=== PATIENT | male | born 2000 | race Caucasian/White ===

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

== ENCOUNTER → 2018-01-03 10:09 | Outpatient (CLI) | payer OTHER, SELFPAY ==
[2018-01-03 10:50] LABS: Hemoglobin A1C 7.1 % (0.0-7.0)
[2018-01-03 10:57] LABS: Basophils # 0.1 K/mm3 (0-0.2); Basophils % 0.6 % (0.1-2.0); Eosinophils # 0.2 K/mm3 (0.0-0.4); Eosinophils % 1.9 % (0.1-12.0); Hematocrit 45.3 % (42.0-52.0); Hemoglobin 14.7 g/dL (14.1-18.0); Lymphocytes % 41.2 K/mm3 (10-50); Mean Corpuscular HGB Conc 32.5 g/dL (31.8-35.4); Mean Corpuscular Hemoglobin 26.8 pg (27.0-31.2); Mean Corpuscular Volume 82.4 fl (80-94); Mean Platelet Volume 6.8 fl (7.4-10.4); Monocytes # 0.5 K/mm3 (0.1-1.0); Monocytes % 5.2 % (1.7-9.3); Neutrophils # 4.9 K/mm3 (1.8-7.8); Neutrophils % 51.1 % (37.0-80.0); Platelet Count 290 K/mm3 (142-424); Red Cell Distribution Width 13.2 % (11.5-17.5); White Blood Count 9.6 K/mm3 (4.5-13.0)
[2018-01-03 12:07] LABS: Alanine Aminotransferase 32 U/L (12-78); Albumin Level 3.8 gm/dL (3.4-5.0); Alkaline Phosphatase 110 U/L (46-116); Anion Gap 13.7 mEq/L (5-15); Aspartate Amino Transferase 14 U/L (15-37); Bilirubin,Total 0.5 mg/dL (0.2-1.0); Blood Urea Nitrogen 16 mg/dL (7-18); Calcium 9.4 mg/dL (8.5-10.1); Carbon Dioxide 30 mmol/L (21.0-32.0); Chloride 102 mmol/L (98-107); Chol/HDL Ratio 4.3 (1-3.5); Cholesterol 173 mg/dL (140-200); Creatinine,Serum 0.86 mg/dL (0.70-1.30); Estimated Glomerular Filt Rate 115 ml/min (>60); GFR (African American) 139 ML/MIN (>60); Globulin 3.8 gm/dl (1.3-3.2); Glucose 133 mg/dL (74-106); HDL Cholesterol 40 mg/dL (27-67); LDL Cholesterol 101 mg/dL (0-130); Potassium 3.7 mmoL/L (3.5-5.1); Sodium 142 mmol/L (136-145); Thyroid Stimulating Hormone 2.32 uIU/ml (0.516-4.13); Total Protein,Serum 7.6 gm/dL (6.4-8.2); Triglycerides 160 mg/dL (30-200); VLDL Cholesterol 32 mg/dL (0-40)
== END ==
PROVIDERS: PCP Emergency Medicine; Visit Provider Psychiatry & Neurology Psychiatry
DX: F32.1 Major depressive disorder, single episode, moderate (principal)
CPT/HCPCS: 36415; 80053; 80061; 83036; 84443; 85025

== ENCOUNTER → 2018-03-18 11:03 | Outpatient (CLI) | payer OTHER, SELFPAY ==
[2018-03-18 12:22] LABS: Basophils # 0.1 K/mm3 (0-0.2); Basophils % 0.7 % (0.1-2.0); Eosinophils # 0.2 K/mm3 (0.0-0.4); Eosinophils % 2.4 % (0.1-12.0); Hematocrit 48.4 % (42.0-52.0); Hemoglobin 15.6 g/dL (14.1-18.0); Lymphocytes # 3.9 K/mm3 (0.7-4.5); Lymphocytes % 46.8 % (10-50); Mean Corpuscular HGB Conc 32.2 g/dL (31.8-35.4); Mean Corpuscular Volume 83.9 fl (80-94); Mean Platelet Volume 7.1 fl (7.4-10.4); Monocytes # 0.4 K/mm3 (0.1-1.0); Monocytes % 4.5 % (1.7-9.3); Neutrophils # 3.8 K/mm3 (1.8-7.8); Neutrophils % 45.6 % (37.0-80.0); Platelet Count 278 K/mm3 (142-424); Red Blood Count 5.78 M/mm3 (4.60-6.20); Red Cell Distribution Width 13.7 % (11.5-17.5); White Blood Count 8.4 K/mm3 (4.5-13.0)
[2018-03-18 15:01] LABS: Alanine Aminotransferase 36 U/L (12-78); Albumin Level 4.1 gm/dL (3.4-5.0); Albumin/Globulin Ratio 1.1 (1.1-1.8); Alkaline Phosphatase 119 U/L (46-116); Aspartate Amino Transferase 21 U/L (15-37); Bilirubin,Total 0.6 mg/dL (0.2-1.0); Blood Urea Nitrogen 13 mg/dL (7-18); Calcium 9.5 mg/dL (8.5-10.1); Carbon Dioxide 27 mmol/L (21.0-32.0); Chloride 101 mmol/L (98-107); Chol/HDL Ratio 4.1 (1-3.5); Cholesterol 173 mg/dL (140-200); Creatinine,Serum 0.81 mg/dL (0.70-1.30); Estimated Glomerular Filt Rate 123 ml/min (>60); GFR (African American) 149 ML/MIN (>60); Globulin 3.8 gm/dl (1.3-3.2); Glucose 115 mg/dL (74-106); HDL Cholesterol 42 mg/dL (27-67); LDL Cholesterol 101 mg/dL (0-130); Sodium 140 mmol/L (136-145); T4 (Thyroxine) 7.6 ug/dl (5.4-10.6); Thyroid Stimulating Hormone 1.76 uIU/ml (0.516-4.13); Total Protein,Serum 7.9 gm/dL (6.4-8.2); Triglycerides 152 mg/dL (30-200); VLDL Cholesterol 30 mg/dL (0-40)
[2018-03-19 12:16] LABS: Vitamin D 25 Hydroxy 28.6 ng/mL (30.0-100.0)
== END ==
PROVIDERS: Nurse Practitioner Family; PCP Emergency Medicine; Visit Provider Emergency Medicine
DX: E11.9 Type 2 diabetes mellitus without complications (principal); F41.9 Anxiety disorder, unspecified
CPT/HCPCS: 36415; 80053; 80061; 82652; 83036; 84436; 84443; 85025

== ENCOUNTER → 2018-05-31 06:57 | Outpatient (CLI) | payer OTHER, SELFPAY ==
--- NOTE | 2018-05-31 08:22 | CT_ITS ---
CT angio coronary artery INDICATION: Atypical chest pain, shortness of air, evaluate for anatomic abnormalities. ITS.REASON: ATYPICAL CP,SOA ORDERING PHYSICIAN: Varun Carey MD PATIENT AGE: 17 years COMPARISON: None TECHNIQUE: Pre angiocardiography artery calcium score was performed Bradycardia was obtained with 50 mg by mouth metoprolol. Patient's heart rate was very variable. Patient was fairly anxious. The heart rate was in the 60s when the exam was initiated. Gated images were obtained following the intravenous ministration of 70 mL of Isovue-370. The patient experienced quite a bit of anxiety with contrast injection and a heart rate elevated to the 90s. The patient was concerned about an additional injection but finally agreed to an additional run. Heart rate was in the lower 70s sound/upper 60s and better images were obtained with a second run. Study is somewhat limited technically due to the variable heart rate and patient motion. FINDINGS: Coronary artery calcium score is 0. The left main coronary artery arises from the posterior aspect of the ascending aorta more posterior than normal. The right coronary artery arises from the anterior aspect of the ascending aorta more medial than normal. The RCA however does NOT have an malignant course and is NOT situated between the ascending aorta and main pulmonary artery. There is no identifiable plaque. No myocardial bridging or coronary stenosis is evident. Small vessels are somewhat difficult to analyze due to the motion artifact. The right coronary artery gives rise to a prominent acute marginal branch. This acute marginal branch traverses along the lateral aspect of the right ventricle and along the base of the right ventricle giving rise to a small posterior descending artery. The RCA does not give rise to the PDA but gives rise to a posterior lateral branch to the left ventricle. IMPRESSION: 1. The origin of the left main coronary artery is somewhat more posterior and medial than usual and the origin of the right coronary artery is also somewhat more anterior and medial. These however do not represent malignant inter-arterial courses of the coronary arteries. 2. The PDA originates from the acute marginal branch of the right coronary artery.
== END ==
PROVIDERS: PCP Emergency Medicine; Visit Provider Internal Medicine
DX: R07.89 Other chest pain (principal); R06.02 Shortness of breath
CPT/HCPCS: 75574; Q9967

== ENCOUNTER → 2018-11-03 10:29 | Outpatient (CLI) | payer OTHER, SELFPAY ==
[2018-11-03 11:06] LABS: Basophils # 0.1 K/mm3 (0-0.2); Basophils % 0.8 % (0.1-2.0); Eosinophils # 0.3 K/mm3 (0.0-0.4); Eosinophils % 4.4 % (0.1-12.0); Hematocrit 45.5 % (42.0-52.0); Hemoglobin 14.2 g/dL (14.1-18.0); Lymphocytes # 2.9 K/mm3 (0.7-4.5); Lymphocytes % 43.9 % (10-50); Mean Corpuscular HGB Conc 31.1 g/dL (31.8-35.4); Mean Corpuscular Hemoglobin 27.5 pg (27.0-31.2); Mean Corpuscular Volume 88.6 fl (80-94); Mean Platelet Volume 7.2 fl (7.4-10.4); Monocytes # 0.3 K/mm3 (0.1-1.0); Monocytes % 3.8 % (1.7-9.3); Neutrophils # 3.1 K/mm3 (1.8-7.8); Neutrophils % 47.1 % (37.0-80.0); Platelet Count 266 K/mm3 (142-424); Red Blood Count 5.14 M/mm3 (4.60-6.20); Red Cell Distribution Width 13.7 % (11.5-17.5); White Blood Count 6.6 K/mm3 (4.5-13.0)
[2018-11-03 13:57] LABS: Alanine Aminotransferase 52 U/L (12-78); Albumin Level 3.6 gm/dL (3.4-5.0); Albumin/Globulin Ratio 1.1 (1.1-1.8); Alkaline Phosphatase 116 U/L (46-116); Anion Gap 15.1 mEq/L (5-15); Aspartate Amino Transferase 26 U/L (15-37); Bilirubin,Total 0.5 mg/dL (0.2-1.0); Blood Urea Nitrogen 15 mg/dL (7-18); Carbon Dioxide 29 mmol/L (21.0-32.0); Chloride 102 mmol/L (98-107); Chol/HDL Ratio 4.2 (1-3.5); Cholesterol 157 mg/dL (140-200); Creatinine,Serum 0.88 mg/dL (0.70-1.30); Estimated Glomerular Filt Rate 110 ml/min (>60); GFR (African American) 134 ML/MIN (>60); Globulin 3.2 gm/dl (1.3-3.2); Glucose 104 mg/dL (74-106); HDL Cholesterol 37 mg/dL (27-67); LDL Cholesterol 101 mg/dL (0-130); Potassium 4.1 mmoL/L (3.5-5.1); Sodium 142 mmol/L (136-145); Total Protein,Serum 6.8 gm/dL (6.4-8.2); Triglycerides 95 mg/dL (30-200); VLDL Cholesterol 19 mg/dL (0-40)
== END ==
PROVIDERS: Visit Provider Psychiatry & Neurology Psychiatry
DX: F31.4 Bipolar disorder, current episode depressed, severe, without psychotic features (principal)
CPT/HCPCS: 36415; 80053; 80061; 85025

== ENCOUNTER → 2018-12-28 18:23 | Outpatient (CLI) | payer OTHER, SELFPAY ==
[2018-12-30 09:27] LABS: Hep A Ab, IgM Negative (Negative); Hepatitis B Core Antibody IgM Negative (Negative); Hepatitis B Surface Antigen Negative (Negative)
[2018-12-30 09:47] LABS: HIV Screen 4th Generation wRfx Non Reactive (Non Reactive); Hepatitis C Antibody <0.1 s/co ratio (0.0-0.9); Rapid Plasma Reagin Ab Titer Non Reactive (NonRea<1:1)
[2019-01-02 15:27] LABS: Neisseria gonorrhoeae, NAA Negative (Negative)
== END ==
PROVIDERS: Emergency Medicine; Visit Provider Physician Assistant
DX: Z20.2 Contact with and (suspected) exposure to infections with a predominantly sexual mode of transmission (principal)
CPT/HCPCS: 80074; 86592; 86703; 87491; 87591; G0432

== ENCOUNTER → 2019-09-22 17:24 | Outpatient (CLI) | payer OTHER, SELFPAY ==
[2019-09-22 18:08] LABS: Basophils # 0.1 K/mm3 (0-0.2); Basophils % 0.7 % (0.1-2.0); Eosinophils # 0.4 K/mm3 (0.0-0.4); Hematocrit 44.8 % (42.0-52.0); Hemoglobin 14.8 g/dL (14.1-18.0); Lymphocytes # 4.5 K/mm3 (0.7-4.5); Lymphocytes % 48.7 % (10-50); Mean Corpuscular Hemoglobin 27.5 pg (27.0-31.2); Mean Corpuscular Volume 83.4 fl (80-94); Mean Platelet Volume 7.4 fl (7.4-10.4); Monocytes # 0.5 K/mm3 (0.1-1.0); Monocytes % 5.9 % (1.7-9.3); Neutrophils # 3.7 K/mm3 (1.8-7.8); Neutrophils % 40.8 % (37.0-80.0); Platelet Count 291 K/mm3 (142-424); Red Blood Count 5.38 M/mm3 (4.60-6.20); Red Cell Distribution Width 13.7 % (11.5-17.5); White Blood Count 9.1 K/mm3 (4.8-10.8)
[2019-09-22 18:45] LABS: Alanine Aminotransferase 31 U/L (12-78); Albumin Level 4.5 g/dl (3.5-5.0); Albumin/Globulin Ratio 1.5 (1.1-1.8); Alkaline Phosphatase 112 U/L (38-126); Aspartate Amino Transferase 30 U/L (17-59); Bilirubin,Total 0.4 mg/dl (0.2-1.3); Blood Urea Nitrogen 11 mg/dl (9-20); Calcium 9.5 mg/dl (8.4-10.2); Carbon Dioxide 27 mmol/L (22.0-30.0); Chloride 100 mmol/L (98-107); Chol/HDL Ratio 3.8 (1-3.5); Cholesterol 178 mg/dl (140-200); Estimated Glomerular Filt Rate 122 ml/min (>60); GFR (African American) 148 ML/MIN (>60); Globulin 3.1 g/dL (1.3-3.2); Glucose 140 mg/dl (74-100); HDL Cholesterol 47 mg/dl (40-60); Hemoglobin A1C 6.5 % (4.0-6.0); Sodium 138 mmol/L (136-145); Total Protein,Serum 7.6 g/dl (6.3-8.2); Triglycerides 326 mg/dl (30-150); VLDL Cholesterol 65 mg/dL (0-40)
[2019-09-22 18:56] LABS: Direct LDL Cholesterol 107.53 mg/dL (100-129)
[2019-09-22 19:02] LABS: T4 (Thyroxine) 7.1 ug/dl (5.53-11.0)
[2019-09-22 19:15] LABS: Thyroid Stimulating Hormone 3.09 uIU/mL (0.465-4.68)
[2019-09-24 09:57] LABS: Vitamin D 25 Hydroxy 18.6 ng/mL (30.0-100.0)
== END ==
PROVIDERS: Visit Provider Emergency Medicine
DX: E10.65 Type 1 diabetes mellitus with hyperglycemia (principal); E55.9 Vitamin D deficiency, unspecified
CPT/HCPCS: 80053; 80061; 82043; 82652; 83036; 84436; 84443; 85025

== ENCOUNTER → 2020-01-19 18:01 | Outpatient (CLI) | payer OTHER, SELFPAY ==
[2020-01-19 18:23] LABS: Basophils # 0.1 K/mm3 (0-0.2); Basophils % 0.6 % (0.1-2.0); Eosinophils # 0.4 K/mm3 (0.0-0.4); Eosinophils % 4.3 % (0.1-12.0); Hematocrit 44.5 % (42.0-52.0); Hemoglobin 15.2 g/dL (14.1-18.0); Lymphocytes # 3.5 K/mm3 (0.7-4.5); Lymphocytes % 40.7 % (10-50); Mean Corpuscular HGB Conc 34.1 g/dL (31.8-35.4); Mean Corpuscular Hemoglobin 28.5 pg (27.0-31.2); Mean Corpuscular Volume 83.4 fl (80-94); Monocytes # 0.5 K/mm3 (0.1-1.0); Monocytes % 5.2 % (1.7-9.3); Neutrophils # 4.2 K/mm3 (1.8-7.8); Neutrophils % 49.2 % (37.0-80.0); Platelet Count 285 K/mm3 (142-424); Red Blood Count 5.33 M/mm3 (4.60-6.20); Red Cell Distribution Width 13.3 % (11.5-17.5); White Blood Count 8.6 K/mm3 (4.8-10.8)
[2020-01-19 18:40] LABS: Hemoglobin A1C 6.9 % (4.0-6.0)
[2020-01-19 19:46] LABS: Alanine Aminotransferase 21 U/L (12-78); Albumin Level 4.3 g/dl (3.5-5.0); Albumin/Globulin Ratio 1.4 (1.1-1.8); Alkaline Phosphatase 123 U/L (38-126); Anion Gap 17.1 mEq/L (5-15); Aspartate Amino Transferase 28 U/L (17-59); Bilirubin,Total 0.7 mg/dl (0.2-1.3); Blood Urea Nitrogen 15 mg/dl (9-20); Calcium 9.7 mg/dl (8.4-10.2); Carbon Dioxide 28 mmol/L (22.0-30.0); Chloride 99 mmol/L (98-107); Chol/HDL Ratio 4.4 (1-3.5); Cholesterol 194 mg/dl (140-200); Estimated Glomerular Filt Rate 142 ml/min (>60); GFR (African American) 172 ML/MIN (>60); Globulin 3.1 g/dL (1.3-3.2); Glucose 123 mg/dl (74-100); HDL Cholesterol 44 mg/dl (40-60); Potassium 4.1 mmoL/L (3.5-5.1); Sodium 140 mmol/L (136-145); Total Protein,Serum 7.4 g/dl (6.3-8.2); Triglycerides 178 mg/dl (30-150); VLDL Cholesterol 36 mg/dL (0-40)
[2020-01-19 19:57] LABS: Direct LDL Cholesterol 113.89 mg/dL (100-129)
[2020-01-19 20:02] LABS: T4 (Thyroxine) 6.8 ug/dl (5.53-11.0)
[2020-01-19 20:04] LABS: 25-OH Vitamin D, Total 22.7 ng/mL (30-100)
[2020-01-19 20:16] LABS: Thyroid Stimulating Hormone 1.71 uIU/mL (0.465-4.68)
== END ==
PROVIDERS: Visit Provider Nurse Practitioner Family
DX: E11.9 Type 2 diabetes mellitus without complications (principal); R53.83 Other fatigue; E55.9 Vitamin D deficiency, unspecified
CPT/HCPCS: 80053; 80061; 82306; 83036; 84436; 84443; 85025

== ENCOUNTER 2020-01-28 14:30 | Emergency (ER) | payer OTHER, SELFPAY ==
[2020-01-28 14:42] VITALS: BP 138/82; PULSE 88; RESP 19; TEMP 37.1; O2SAT 98; BMI 39.6
--- NOTE | 2020-01-28 14:48 | HMH.EDUTC ---
[facility] [place] Disposition Clinical Impression: Acute maxillary sinusitis Qualifiers: Recurrence: non-recurrent Qualified Code(s): J01.00 - Acute maxillary sinusitis, unspecified Disposition: Home, Self-Care Condition on Discharge: Good Instructions: Sinusitis, DI for Sinusitis Additional Instructions: Start antibiotic patient to take as ordered for a full length of time even if you feel better. Sinus infections do not get better overnight. It may take 2-3 days to notice much improvement so be sure to use conservative measures as discussed for symptoms. Flonase 1 spray each nostril daily to help with nasal congestion, sinus and ear pressure/information Increase fluids Humidifier/vaporizer as needed Tylenol and ibuprofen as needed for fever or pain. If symptoms do not improve or get worse return or be seen in the ER Follow-up with primary care this week Prescriptions: Fluticasone Propionate [Flonase 50mcg nasal spray 16gm] 1 spr NS DAILY 7 Days #1 bottle Prescription Printed Azithromycin [Zithromax 250mg tab] 250 mg PO DIRECTED #6 tab Prescription Printed Referrals: Esteban Ya MD [Primary Care Provider] - Time of Disposition: 14:54 Medical Decision Making - Haroon Inquiry Pt receiving controlled substance: No Vital Signs: 01/28/20 14:42 Temperature 98.7 F Temperature Source Oral Pulse Rate [Radial] 88 Respiratory Rate 19 Blood Pressure [Right Arm] 138/82 Blood Pressure Mean [Right Arm] 100 Blood Pressure Source [Right Arm] Automatic Cuff Blood Pressure Position [Right Arm] Sitting 02 Sat by Pulse Oximetry 98 Oxygen Delivery Method Room Air [facility] [place] HPI - General Chief complaint: Urgent Treatment Center Stated complaint: runny nose, cough, trouble breathing at night Time Seen by Provider: 01/28/20 14:48 Mode of Arrival: Ambulatory Source of Information: Patient Limitations: No Limitations Description of Symptoms (Recalled from Triage Doc. by RN): runny nose, coughing up dark mucous, sinus drainage since Wednesday HEENT Symptoms (Recalled from RN notes): Yes Resp Symptoms (Recalled from RN notes): No Skin Symptoms (Recalled from RN notes): No MS Symptoms (Recalled from RN notes): No Functional Status (Recalled from RN notes): wnl - History of Present Illness Provider Complaint: 19 yr old male presents for sinus pressure, dark yellow/brown drainage,coughing and congestion since wednesday and becoming worse. - Related Data Previous Rx's Medication Instructions Recorded bisoprolol fumarate 5 mg tablet See Rx Instructions .ROUTE 09/22/19 .COMPLEX #90 each lisinopril 10 1 tab PO DAILY #90 tab 09/22/19 mg-hydrochlorothiazide 12.5 mg tablet quetiapine 100 mg tablet 100 mg PO ONCE HS #90 tab 09/22/19 sertraline 50 mg tablet 75 mg PO DAILY 90 Days #135 tab 09/22/19 cholecalciferol (vitamin D3) 25 1,000 unit PO DAILY #90 cap 09/29/19 mcg (1,000 unit) capsule ergocalciferol (vitamin D2) 1,250 50,000 unit PO QWEEK 90 Days #7 cap 01/20/20 mcg (50,000 unit) capsule simvastatin 5 mg tablet 5 mg PO DAILY #30 tab 01/20/20 Azithromycin [Zithromax 250mg 250 mg PO DIRECTED #6 tab 01/28/20 tab] Fluticasone Propionate [Flonase 1 spr NS DAILY 7 Days #1 bottle 01/28/20 50mcg nasal spray 16gm] Allergies Allergy/AdvReac Type Severity Reaction Status Date / Time citalopram AdvReac Intermediate Vomiting Verified 01/19/20 16:33 - Worker's Comp Is this a Worker's Comp case?: No [facility] History - Hepatitis A Screen Drug use history?: No High risk sexual behaviors?: No History of sexually transmitted infection?: No Currently employed?: No Childcare worker?: No Do you have indoor plumbing?: Yes Do you have electricity?: Yes Attestation statement:: This patient has been screened for Hepatitis A risk factors. I have reviewed the patient's past medical history: Yes Medical History: Reports:: Anxiety, Depression, Diabetes Mellitus Type 2, Gastroesophageal Reflux Disease(GERD), Hypertensi
[2020-01-28 15:06] VITALS: BP 138/82; PULSE 88; RESP 19; TEMP 37.1; O2SAT 98
== END 2020-01-28 15:07 | disposition home or self-care (01) ==
PROVIDERS: Emergency Provider Nurse Practitioner Family; PCP Emergency Medicine
DX: J01.00 Acute maxillary sinusitis, unspecified (principal); I10 Essential (primary) hypertension; F41.8 Other specified anxiety disorders; E11.9 Type 2 diabetes mellitus without complications; K21.9 Gastro-esophageal reflux disease without esophagitis; Z87.891 Personal history of nicotine dependence; Z79.899 Other long term (current) drug therapy
CPT/HCPCS: 99201

== ENCOUNTER → 2020-04-16 18:10 | Outpatient (CLI) | payer OTHER, SELFPAY ==
[2020-04-16 18:31] LABS: Basophils # 0.1 K/mm3 (0-0.2); Basophils % 0.7 % (0.1-2.0); Eosinophils # 0.5 K/mm3 (0.0-0.4); Eosinophils % 4.4 % (0.1-12.0); Hematocrit 45.8 % (42.0-52.0); Hemoglobin 15.3 g/dL (14.1-18.0); Lymphocytes # 4.5 K/mm3 (0.7-4.5); Lymphocytes % 39.4 % (10-50); Mean Corpuscular HGB Conc 33.4 g/dL (31.8-35.4); Mean Corpuscular Hemoglobin 28.6 pg (27.0-31.2); Mean Corpuscular Volume 85.6 fl (80-94); Mean Platelet Volume 7.6 fl (7.4-10.4); Monocytes # 0.6 K/mm3 (0.1-1.0); Monocytes % 4.9 % (1.7-9.3); Neutrophils # 5.8 K/mm3 (1.8-7.8); Neutrophils % 50.6 % (37.0-80.0); Platelet Count 308 K/mm3 (142-424); Red Blood Count 5.35 M/mm3 (4.60-6.20); Red Cell Distribution Width 13.9 % (11.5-17.5); White Blood Count 11.5 K/mm3 (4.8-10.8)
[2020-04-16 19:00] LABS: Alanine Aminotransferase 31 U/L (12-78); Albumin Level 4.5 g/dl (3.5-5.0); Albumin/Globulin Ratio 1.5 (1.1-1.8); Alkaline Phosphatase 137 U/L (38-126); Anion Gap 14.4 mEq/L (5-15); Aspartate Amino Transferase 26 U/L (17-59); Bilirubin,Total 0.5 mg/dl (0.2-1.3); Blood Urea Nitrogen 14 mg/dl (9-20); Calcium 9.6 mg/dl (8.4-10.2); Carbon Dioxide 29 mmol/L (22.0-30.0); Chloride 99 mmol/L (98-107); Estimated Glomerular Filt Rate 142 ml/min (>60); GFR (African American) 172 ML/MIN (>60); Glucose 191 mg/dl (74-100); Potassium 4.4 mmoL/L (3.5-5.1); Sodium 138 mmol/L (136-145); Total Protein,Serum 7.5 g/dl (6.3-8.2)
[2020-04-16 19:32] LABS: Hemoglobin A1C 7.3 % (4.0-6.0)
== END ==
PROVIDERS: Visit Provider Emergency Medicine
DX: E11.9 Type 2 diabetes mellitus without complications (principal)
CPT/HCPCS: 80053; 83036; 85025

== ENCOUNTER 2020-08-10 18:23 | Emergency (ER) | payer OTHER, SELFPAY ==
[2020-08-10 18:34] VITALS: BP 145/94; PULSE 81; RESP 18; TEMP 36.8; O2SAT 97; BMI 39.7
[2020-08-10 18:48] VITALS: PULSE 79; RESP 16; TEMP 36.7; O2SAT 100; BMI 39.5
--- NOTE | 2020-08-10 18:55 | HMH.EDUTC ---
[facility] [place] Disposition Clinical Impression: Lumbar strain Qualifiers: Encounter type: initial encounter Qualified Code(s): S39.012A - Strain of muscle, fascia and tendon of lower back, initial encounter Disposition: Home, Self-Care Condition on Discharge: Good Instructions: Muscle Strain, DI for Muscle Strain Additional Instructions: steroids as ordered rest tylenol or motrin as needed for pain ice 20 mins and remove may repeat every hour for comfort follow up with pcp if symptoms worsen or do not improve return or be seen in ed Prescriptions: predniSONE [Prednisone 20mg Tab] 20 mg PO BID #10 tab Transmission Status: Pending to [facility] Referrals: Esteban Ya MD [Primary Care Provider] - Time of Disposition: 19:05 Medical Decision Making - Haroon Inquiry Pt receiving controlled substance: No Vital Signs: 08/10/20 18:34 08/10/20 18:48 Temperature 98.3 F 98.1 F Temperature Source Oral Oral Pulse Rate [Left Radial] 81 79 Respiratory Rate 18 16 Blood Pressure [Right Arm] 145/94 H Blood Pressure Mean [Right Arm] 111 Blood Pressure Source [Right Arm] Automatic Cuff Blood Pressure Position [Right Arm] Sitting 02 Sat by Pulse Oximetry 97 100 Oxygen Delivery Method Room Air [facility] [place] HPI - General Chief complaint: Urgent Treatment Center Stated complaint: ao 08/10 INJURED BACK Time Seen by Provider: 08/10/20 18:55 Mode of Arrival: Ambulatory Source of Information: Patient Limitations: No Limitations Description of Symptoms (Recalled from Triage Doc. by RN): pt is having lower back pain from working out. he says it does not radiate anywhere. HEENT Symptoms (Recalled from RN notes): No Resp Symptoms (Recalled from RN notes): No Skin Symptoms (Recalled from RN notes): No MS Symptoms (Recalled from RN notes): Yes (lower back pain) Functional Status (Recalled from RN notes): na - History of Present Illness Provider Complaint: 19 yr old male presents with c/o lower back pain from working out. he says it does not radiate anywhere.Pt states he was doing leg lifts when he felt a pop in his lower back as he was pulling his legs down and at first had dizziness and nausea. pt states at first he was having problems walking but now just pain in low back pain. no change in bowel or bladder - Related Data Previous Rx's Medication Instructions Recorded cholecalciferol (vitamin D3) 25 1,000 unit PO DAILY #90 cap 09/29/19 mcg (1,000 unit) capsule bisoprolol fumarate 5 mg tablet See Rx Instructions .ROUTE 05/16/20 .COMPLEX #90 tablet quetiapine 100 mg tablet See Rx Instructions .ROUTE 05/29/20 .COMPLEX #90 tab lisinopril 10 See Rx Instructions .ROUTE 06/15/20 mg-hydrochlorothiazide 12.5 mg .COMPLEX #90 tab tablet sertraline 50 mg tablet See Rx Instructions .ROUTE 06/15/20 .COMPLEX #135 tab simvastatin 5 mg tablet See Rx Instructions .ROUTE 07/02/20 .COMPLEX #90 tab ergocalciferol (vitamin D2) 1,250 50,000 unit PO QWEEK 90 Days #12 07/15/20 mcg (50,000 unit) capsule cap predniSONE [Prednisone 20mg 20 mg PO BID #10 tab 08/10/20 Tab] Allergies Allergy/AdvReac Type Severity Reaction Status Date / Time citalopram AdvReac Intermediate Vomiting Verified 07/15/20 15:24 - Worker's Comp Is this a Worker's Comp case?: No [facility] History - Hepatitis A Screen Drug use history?: No High risk sexual behaviors?: No History of sexually transmitted infection?: No Currently employed?: No Childcare worker?: No Do you have indoor plumbing?: Yes Do you have electricity?: Yes Attestation statement:: This patient has been screened for Hepatitis A risk factors. I have reviewed the patient's past medical history: Yes Medical History: Reports:: Anxiety, Depression, Diabetes Mellitus Type 2, Gastroesophageal Reflux Disease(GERD), Hypertension Denies:: Cancer, Diabetes Mellitus Type 1, Gastrointestinal Bleed, Internal Pacemaker, MRSA Other Surgeries: Yes: No Previous Surgery, Other (dur
[2020-08-10 19:08] VITALS: BP 137/87; PULSE 76; RESP 14; TEMP 36.6
== END 2020-08-10 19:11 | disposition home or self-care (01) ==
PROVIDERS: Emergency Provider Nurse Practitioner Family; PCP Emergency Medicine
DX: S39.012A Strain of muscle, fascia and tendon of lower back, initial encounter (principal); I10 Essential (primary) hypertension; E11.9 Type 2 diabetes mellitus without complications; F41.8 Other specified anxiety disorders; K21.9 Gastro-esophageal reflux disease without esophagitis; F17.290 Nicotine dependence, other tobacco product, uncomplicated; F12.10 Cannabis abuse, uncomplicated; Z79.899 Other long term (current) drug therapy
CPT/HCPCS: 99202; G0463

== ENCOUNTER 2020-11-02 11:45 | Emergency (ER) | payer OTHER, SELFPAY ==
[2020-11-02 11:45] VITALS: BP 141/77; PULSE 93; RESP 21; TEMP 37; O2SAT 99; BMI 41.0
--- NOTE | 2020-11-02 12:23 | HMH.EDUTC ---
[facility] [place] Disposition Clinical Impression: Otitis media Qualifiers: Otitis media type: unspecified Laterality: bilateral Qualified Code(s): H66.93 - Otitis media, unspecified, bilateral Disposition: Home, Self-Care Condition on Discharge: Good Instructions: Middle Ear Infection, Amoxicillin and Clavulanic Acid, DI for Sinusitis Additional Instructions: *Monitor Temp, Over the counter Motrin or Tylenol as directed/as needed Tylenol every 4 hours and Motrin every 6 hours (as long as your family doctor has told you that you can take it) for fever or pain. and straight to ER if unable to lower temp less than 101.0 after medication given *Warm salt water gargles may help to soothe the throat *Throat Lozenges *Warm fluids like tea with honey may help to soothe the throat *Sleep elevated *Humidifier/Vaporizer *Flonase 2 sprays in each nostril daily but be aware that it may take 2-3 days before you notice improvement Take medication as prescribed Return if needed Follow up IMMEDIATELY for new or worsening symptoms or no Noticeable improvement over the next 48-72 hours. 911 for difficulty breathing or swallowing Prescriptions: Amoxicillin/Potassium Clav [Augmentin 875-125 Tablet] 1 tab PO Q12H 10 Days #20 tab Transmission Status: Pending to [facility] predniSONE [Deltasone 10mg tablet] 10 mg PO BID 5 Days #10 tab Transmission Status: Pending to [facility] Referrals: Esteban Ya MD [Primary Care Provider] - As needed Time of Disposition: 12:30 Medical Decision Making - Haroon Inquiry Pt receiving controlled substance: No Haroon was queried for this patient: No Vital Signs: 11/02/20 11:45 Temperature 98.6 F Temperature Source Oral Pulse Rate [Right Brachial] 93 H Respiratory Rate 21 Blood Pressure [Right Arm] 141/77 H Blood Pressure Mean [Right Arm] 98 Blood Pressure Source [Right Arm] Automatic Cuff Blood Pressure Position [Right Arm] Sitting 02 Sat by Pulse Oximetry 99 Oxygen Delivery Method Room Air - Lab Data Lab results reviewed: Yes: I reviewed the patient's lab results. Medical Decision Narrative: Patient state that he has taken both augmentin and prednisone in the past without reactions or complications [facility] [place] HPI - General Stated complaint: nausea, congested Time Seen by Provider: 11/02/20 12:23 Mode of Arrival: Ambulatory Source of Information: Patient Limitations: No Limitations Description of Symptoms (Recalled from Triage Doc. by RN): PATIENT C/O DECREASED HEARING TO RIGHT EAR AND HEADACHE SINCE YESTERDAY HEENT Symptoms (Recalled from RN notes): Yes Resp Symptoms (Recalled from RN notes): No Skin Symptoms (Recalled from RN notes): No MS Symptoms (Recalled from RN notes): No Functional Status (Recalled from RN notes): WNL - History of Present Illness Provider Complaint: Patient states that he has been having bilateral ear pain, sinus pressure and drainage along with sore scratchy throat State that he has been having decreased hearing in right ear States that today he wasnt feeling any better so he came in - Related Data Home Medications Medication Instructions Recorded Confirmed Quetiapine Fumarate 100 mg PO DAILY 11/02/20 11/02/20 Sertraline HCl [Zoloft] 1.5 tab PO DAILY 11/02/20 11/02/20 Simvastatin 5 mg PO HS 11/02/20 11/02/20 bisoproloL fumarate [Bisoprolol 5 mg PO DAILY 11/02/20 11/02/20 Fumarate] Previous Rx's Medication Instructions Recorded Amoxicillin/Potassium Clav 1 tab PO Q12H 10 Days #20 tab 11/02/20 [Augmentin 875-125 Tablet] predniSONE [Deltasone 10mg tablet] 10 mg PO BID 5 Days #10 tab 11/02/20 Allergies Allergy/AdvReac Type Severity Reaction Status Date / Time citalopram AdvReac Intermediate Vomiting Verified 07/15/20 15:24 - Worker's Comp Is this a Worker's Comp case?: No [facility] History - Hepatitis A Screen Drug use history?: No High risk sexual behaviors?: No History of sexually transmitted infection?: No Curr
[2020-11-02 12:31] VITALS: BP 141/77; PULSE 93; RESP 21; TEMP 37; O2SAT 99
== END 2020-11-02 12:35 | disposition home or self-care (01) ==
PROVIDERS: Emergency Provider Nurse Practitioner; PCP Emergency Medicine
DX: H66.93 Otitis media, unspecified, bilateral (principal); E11.9 Type 2 diabetes mellitus without complications; I10 Essential (primary) hypertension; F41.8 Other specified anxiety disorders; K21.9 Gastro-esophageal reflux disease without esophagitis; Z87.891 Personal history of nicotine dependence; Z79.899 Other long term (current) drug therapy
CPT/HCPCS: 99202; G0463

== ENCOUNTER → 2020-12-23 18:16 | Outpatient (CLI) | payer OTHER, SELFPAY ==
[2020-12-23 19:33] LABS: Basophils # 0.1 K/mm3 (0-0.2); Basophils % 0.6 % (0.1-2.0); Eosinophils # 0.4 K/mm3 (0.0-0.4); Eosinophils % 3.8 % (0.1-12.0); Hematocrit 43.6 % (42.0-52.0); Hemoglobin 14.3 g/dL (14.1-18.0); Lymphocytes # 3.7 K/mm3 (0.7-4.5); Lymphocytes % 37.8 % (10-50); Mean Corpuscular HGB Conc 32.8 g/dL (31.8-35.4); Mean Corpuscular Hemoglobin 27.3 pg (27.0-31.2); Mean Corpuscular Volume 83.3 fl (80-94); Mean Platelet Volume 8.8 fl (7.4-10.4); Monocytes # 0.4 K/mm3 (0.1-1.0); Monocytes % 4.1 % (1.7-9.3); Neutrophils # 5.2 K/mm3 (1.8-7.8); Neutrophils % 53.7 % (37.0-80.0); Platelet Count 282 K/mm3 (142-424); Red Blood Count 5.24 M/mm3 (4.60-6.20); Red Cell Distribution Width 13.9 % (11.5-17.5); White Blood Count 9.7 K/mm3 (4.8-10.8)
[2020-12-23 19:42] LABS: Hemoglobin A1C 7.5 % (4.0-6.0)
[2020-12-23 19:48] LABS: Chloride 101 mmol/L (98-107); Potassium 4.2 mmoL/L (3.5-5.1); Sodium 140 mmol/L (136-145)
[2020-12-23 19:50] LABS: Alanine Aminotransferase 37 U/L (12-78); Albumin Level 4.6 g/dl (3.5-5.0); Albumin/Globulin Ratio 1.5 (1.1-1.8); Alkaline Phosphatase 132 U/L (38-126); Aspartate Amino Transferase 32 U/L (17-59); Bilirubin,Total 0.4 mg/dl (0.2-1.3); Blood Urea Nitrogen 11 mg/dl (9-20); Estimated Glomerular Filt Rate 168 ml/min (>60); GFR (African American) 204 ML/MIN (>60); Globulin 3.1 g/dL (1.3-3.2); Total Protein,Serum 7.7 g/dl (6.3-8.2)
[2020-12-23 19:51] LABS: Anion Gap 16.2 mEq/L (5-15); Calcium 9.4 mg/dl (8.4-10.2); Carbon Dioxide 27 mmol/L (22.0-30.0); Chol/HDL Ratio 5.1 (1-3.5); Cholesterol 182 mg/dl (140-200); Glucose 273 mg/dl (74-100); HDL Cholesterol 36 mg/dl (40-60); Triglycerides 377 mg/dl (30-150); VLDL Cholesterol 75 mg/dL (0-40)
[2020-12-23 20:02] LABS: Direct LDL Cholesterol 93.57 mg/dL (100-129)
[2020-12-23 20:08] LABS: T4 (Thyroxine) 7.5 ug/dl (5.53-11.0)
[2020-12-23 20:22] LABS: Thyroid Stimulating Hormone 4.19 uIU/mL (0.465-4.68)
== END ==
PROVIDERS: Visit Provider Nurse Practitioner Family
DX: E11.9 Type 2 diabetes mellitus without complications (principal)
CPT/HCPCS: 80053; 80061; 83036; 84436; 84443; 85025

== ENCOUNTER 2021-01-21 08:57 | Emergency (ER) | payer OTHER, SELFPAY ==
[2021-01-21 09:10] VITALS: BP 135/80; PULSE 112; RESP 18; TEMP 37.3; O2SAT 96; BMI 40.1
[2021-01-21 09:25] LABS: POC Glucose,Bedside 160 (70-110)
[2021-01-21 09:54] VITALS: BP 135/80; PULSE 112; RESP 18; TEMP 37.3; O2SAT 96; BMI 39.9
--- NOTE | 2021-01-21 10:05 | PC.NURSE ---
Visual acuity: With corrective lenses Both: 20/50 Left eye: 20/40 Right eye: cant see out of it
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
[2021-01-21 11:55] VITALS: BP 121/76; PULSE 79; RESP 16; TEMP 36.8; O2SAT 98
== END 2021-01-21 11:56 | disposition home or self-care (01) ==
LOC: UTC 09:02 → ER 09:48
PROVIDERS: Emergency Provider Nurse Practitioner Family; PCP Emergency Medicine
DX: L03.213 Periorbital cellulitis (principal); I10 Essential (primary) hypertension; K21.9 Gastro-esophageal reflux disease without esophagitis; F41.8 Other specified anxiety disorders
CPT/HCPCS: 82962; 96372; 99281

== ENCOUNTER → 2021-07-21 16:37 | Outpatient (CLI) | payer OTHER, SELFPAY ==
[2021-07-21 14:42] LABS: Basophils # 0.1 K/mm3 (0-0.2); Basophils % 1.1 % (0.1-2.0); Eosinophils # 0.4 K/mm3 (0.0-0.4); Eosinophils % 4.5 % (0.1-12.0); Hematocrit 44.6 % (42.0-52.0); Hemoglobin 14.4 g/dL (14.1-18.0); Lymphocytes # 4.3 K/mm3 (0.7-4.5); Lymphocytes % 47.4 % (10-50); Mean Corpuscular HGB Conc 32.3 g/dL (31.8-35.4); Mean Corpuscular Hemoglobin 27.9 pg (27.0-31.2); Mean Corpuscular Volume 86.5 fl (80-94); Mean Platelet Volume 8.7 fl (7.4-10.4); Monocytes # 0.4 K/mm3 (0.1-1.0); Monocytes % 4.1 % (1.7-9.3); Neutrophils # 3.9 K/mm3 (1.8-7.8); Neutrophils % 42.9 % (37.0-80.0); Platelet Count 304 K/mm3 (142-424); Red Blood Count 5.16 M/mm3 (4.60-6.20); Red Cell Distribution Width 14.4 % (11.5-17.5); White Blood Count 9.1 K/mm3 (4.8-10.8)
[2021-07-21 15:28] LABS: Hemoglobin A1C 8.1 % (4.0-6.0)
[2021-07-21 15:52] LABS: Alanine Aminotransferase 42 U/L (12-78); Albumin Level 4.4 g/dl (3.5-5.0); Albumin/Globulin Ratio 1.6 (1.1-1.8); Alkaline Phosphatase 112 U/L (38-126); Aspartate Amino Transferase 36 U/L (17-59); Bilirubin,Total 0.6 mg/dl (0.2-1.3); Blood Urea Nitrogen 12 mg/dl (9-20); Calcium 9.1 mg/dl (8.4-10.2); Carbon Dioxide 26 mmol/L (22.0-30.0); Chloride 104 mmol/L (98-107); Estimated Glomerular Filt Rate 168 ml/min (>60); GFR (African American) 204 ML/MIN (>60); Globulin 2.7 g/dL (1.3-3.2); Glucose 187 mg/dl (74-100); Sodium 141 mmol/L (136-145); Total Protein,Serum 7.1 g/dl (6.3-8.2)
== END ==
PROVIDERS: Visit Provider Emergency Medicine
DX: E11.9 Type 2 diabetes mellitus without complications (principal); Z79.84 Long term (current) use of oral hypoglycemic drugs
CPT/HCPCS: 80053; 83036; 85025

== ENCOUNTER → 2022-01-20 07:56 | Outpatient (CLI) | payer OTHER, SELFPAY ==
--- NOTE | 2022-01-20 | CA_ITS ---
APPROVED REPORT Exam: Exercise Treadmill Technologist: Marisela Li, Ht: 6 ft 5 in Wt: 313 lbs BSA: 2.71 m2 HR: 70 bpm BP: 143/102 mmHg Indications: CP, HTN Medical History Medications: Lisinopril,,,,, Simvastatin,,,,, Metformin,,,,, BisOPROLOL,,,,, Quetiapine,,,,, Epinephrine,,,,, Vilazodone,,,,, Stress Test Details Test: Bebeto HR Resting HR: 80 bpm Max Heart Rate (APMHR): 197.111184 bpm Max HR Achieved: 167 bpm Target HR (85% APMHR): 167.862395 bpm % of APMHR: 84.77 Recovery HR: 84 bpm BP Resting BP: 149/94 mmHg Max BP: 172/102 mmHg Recovery BP: 154.0/102.0 mmHg ECG Resting ECG: NSR, low voltage QRS, T wave abn in lead III Clinical Exercise duration: 06:00 min Highest Stage Achieved: II Exercise capacity: 7.0 METs Stress ECG Conclusion exercised 6:00 on Bebeto Protocol, completing II stages. Max HR: 167 % of PM: 85% Max BP: 172/102 METs: 7.0 Test stopped due to: SOA Symptoms: SOA, mild chest tightness. Arrhythmias/Ectopy: None ST-T Changes: within normal ST response to exercise. Conclusion: mild CP but otherwise normal GXT. Myoview images reported separately. Test Summary REST . . . . . . . Sitting REST . . . . . . . Standing REST 03:53 0.0 0.0 80 . 149/ 94 . . Stage 1 01:00 10.0 1.7 116 . . . . Stage 1 02:00 10.0 1.7 126 . . . . Stage 1 03:00 10.0 1.7 136 . 158/100 . . Stage 2 01:00 12.0 2.5 151 . . . . Stage 2 02:00 12.0 2.5 158 . . . . Stage 2 03:00 12.0 2.5 166 . . . Stop exercise at 06:00 RECOVERY 01:00 0.0 0.0 142 . . . . RECOVERY 02:00 0.0 0.0 112 . 172/102 . . RECOVERY 03:00 0.0 0.0 100 . 151/100 . . RECOVERY 04:00 0.0 0.0 88 . 151/100 . . RECOVERY 05:00 0.0 0.0 85 . 154/102 . . RECOVERY 05:17 0.0 0.0 86 . 154/102 . . Electronically signed by : Brandt Pearson MD 01/21/2022 05:46:35
--- NOTE | 2022-01-20 07:56 | NM_ITS ---
APPROVED REPORT Exam: Nuclear Stress Test Indication: Chest pain, SOB, Palpitations, Syncope, Fatigue, Obesity, HTN, DM, Tobacco use, Family history Patient Location: Outpatient Stress Tech: Marisela Cleaning HI Tech:Elle Adair, ARRT, RT (R)(N) Ht: 6 ft 5 in Wt: 313 lbs HR: 80 bpm BP: 149/94 mmHg BSA: 2.71 m2 TID: 1.15 BMI: 37.1 History: Chest pain, SOB, Palpitations, Syncope, Fatigue, Obesity, HTN, DM, Tobacco use, Family history Procedure: Patient exercised on Bebeto protocol 6:00 minutes and sec, resting heart rate 80 bpm, resting blood pressure 149/94 mmHg, with exercise maximum heart rate achived was 167 bpm which is 85 % of the maximum predicted heart rate and blood pressure was 172/102 mmHg. Test was stopped due to SOB. Patient has Adequate exercise capacity, achieved 7.0 METs of workload on treadmill, the blood pressure response to exercise was Hypertensive. Electrocardiogram Resting electrocardiogram showed sinus rhythm with exercise there is less than 1.[address] segment depression noted from the baseline EKG. The EKG portion of the exercise Myoview is negative for ischemia. Cardiac Stress and Resting SPECT Images: Cardiac Stress and Resting SPECT images were obtained using technetium 99m Myoview 31.2 mCi stress and 10.57 mCi at rest. Gated SPECT analysis of segmental wall motion and calculation of the ejection fraction also done. Prone images were also obtained. Cardiac stress and rest SPECT images show uniform myocardial activity without segmental perfusion abnormality, computer derived ejection fraction is 60% with no regional wall motion abnormality, right ventricle is normal size and contractility. Conclusion: 1. The EKG portion of the exercise Myoview is negative for ischemia, patient has adequate exercise capacity achieved 7 METS of workload on treadmill, the blood pressure response to exercise was hypertensive, patient complained of shortness of breath and chest tightness with exercise. 2. No scintigraphic evidence of reversible ischemia seen at this level of exercise, computer derived ejection fraction 60% with no regional wall motion abnormality, right ventricle is normal size and contractility. Electronically signed by : Brandt Pearson MD 01/21/2022 05:49:17
--- NOTE | 2022-01-20 09:25 | HMH.ITSHM ---
Current Home Medications as stated by this patient Domo Martinez or outbound call center representative. []VILAZODONE SIMVASTATIN QUETIAPINE LISINOPRIL GLIPIZIDE EPINEPHRINE BISOPROLOL
== END ==
PROVIDERS: PCP Emergency Medicine; Visit Provider Emergency Medicine
DX: R07.9 Chest pain, unspecified (principal)
CPT/HCPCS: 78452; 93017; A9502

== ENCOUNTER 2022-02-10 15:39 | Emergency (ER) | payer OTHER, SELFPAY ==
--- NOTE | 2022-02-10 16:00 | EXP.UTC ---
Discharge Plan Disposition Patient Disposition: Home, Self-Care Condition: Good Prescriptions Prescriptions: New cyclobenzaprine 10 mg Tablet 10 mg PO BID PRN (Reason: Muscle Spasm) Qty: 20 0RF methylprednisolone 4 mg Tablets,Dose Pack 4 mg PO DIRECTED Qty: 21 0RF No Action epinephrine 0.1 mg/mL syringe 0.1 mg SQ Q30M PRN (Reason: anaphylaxis) Qty: 10 0RF Rx Instructions: do not exceed 12 doses per 24 hrs lisinopril 10 mg tablet 10 mg PO DAILY Qty: 30 2RF glipizide [Glucotrol XL] 5 mg tablet extended release 24 hr 5 mg PO QAM Qty: 30 2RF simvastatin 5 mg tablet 5 mg PO DAILY Qty: 30 2RF vilazodone [Viibryd] 40 mg tablet 40 mg PO DAILY Qty: 30 1RF Rx Instructions: must administer with a meal/food quetiapine [Seroquel] 200 mg tablet 200 mg PO HS Qty: 30 1RF bisoprolol fumarate 5 mg tablet See Rx Instructions .ROUTE .COMPLEX Qty: 90 0RF Dose Instruction: Take 1 tablet by mouth once daily for blood pressure Rx Instructions: Take 1 tablet by mouth once daily for blood pressure Referrals Follow up/Referrals: Esteban Ya MD [Primary Care Provider] - See instructions Activity Restrictions/Add. Instructions Additional Instructions/Restrictions: Go home and rest. It would be best if you rested tomorrow too. No heavy lifting. No twisting. Take the oral medications as directed. The muscle relaxer (cyclobenzaprine--Flexeril) will make you drowsy, so don't drive or operate heavy machinery after taking it. Follow up with your regular doctor. GO TO THE ER FOR ANY WORSENING SYMPTOMS OR CONCERN, ESPECIALLY BOWEL OR BLADDER ISSUES, SADDLE AREA NUMBNESS, FEVER, ETC Clinical Impressions Clinical Impression: Low back pain Instructions Patient Instructions: DI for Low Back Pain, Cyclobenzaprine, Methylprednisolone, Ketorolac Injection Discharge ED Provider: Natan Foreman [facility] [place], [place] HPI General Stated complaint: AO 02/05@2000@home injured Back Time Seen by Provider: 02/10/22 16:00 History of Present Illness Provider Complaint: He states that he has had low back pain for the past 4 to 5 days. He was moving some heavy things the day before his symptoms began. He states that the pain goes down his right leg at times. He has had episodes of back strain, but they usually have got better before this many days. He denies any urinary or bowel issues. Related Data Previous Rx's Medication Instructions Recorded epinephrine 0.1 mg/mL injection 0.1 mg SQ Q30M PRN anaphylaxis #10 01/28/21 syringe mL simvastatin 5 mg tablet 5 mg PO DAILY #30 tabs 07/21/21 quetiapine 200 mg tablet (Seroquel) 200 mg PO HS #30 tabs 12/03/21 vilazodone 40 mg tablet (Viibryd) 40 mg PO DAILY #30 tabs 12/03/21 bisoprolol fumarate 5 mg tablet See Rx Instructions .Route 12/30/21 .COMPLEX #90 tabs glipizide 5 mg tablet, extended 5 mg PO QAM #30 tabs 01/05/22 release 24 hr (Glucotrol XL) lisinopril 10 mg tablet 10 mg PO DAILY #30 tabs 01/05/22 cyclobenzaprine 10 mg tablet 10 mg PO BID PRN Muscle Spasm #20 02/10/22 tabs methylprednisolone 4 mg tablets in 4 mg PO DIRECTED #21 tabs 02/10/22 a dose pack Allergies Allergy/AdvReac Type Severity Reaction Status Date / Time citalopram AdvReac Intermediate Vomiting Verified 02/10/22 16:08 [facility] Medical History Dizziness SOB (shortness of breath) Family History Other Diabetes Heart attack Substance abuse Social History Smoking Status: Former smoker alcohol intake: never substance use type: denies use and marijuana current occupational status: unemployed and other Travel in the last 8 weeks: None household members: family housing: house number of children: 0 caffeine: Yes ROS Obtained: Yes All systems reviewed & no a
[2022-02-10 16:09] VITALS: BP 137/94; PULSE 69; RESP 16; TEMP 36.8; O2SAT 96; BMI 37.0
[2022-02-10 17:06] VITALS: BP 137/94; PULSE 69; RESP 16; TEMP 36.8
== END 2022-02-10 17:08 | disposition home or self-care (01) ==
PROVIDERS: Emergency Provider Nurse Practitioner Family; PCP Emergency Medicine
DX: M54.50 Low back pain, unspecified (principal); X50.0XXA Overexertion from strenuous movement or load, initial encounter
CPT/HCPCS: 96372; 99212; G0463

== ENCOUNTER → 2022-09-21 11:00 | Outpatient (CLI) | payer OTHER, SELFPAY ==
[2022-09-21 15:00] LABS: Basophils # 0.1 K/mm3 (0-0.2); Basophils % 0.7 % (0.1-2.0); Eosinophils # 0.2 K/mm3 (0.0-0.4); Eosinophils % 2.5 % (0.1-12.0); Hematocrit 46.8 % (42.0-52.0); Hemoglobin 15.1 g/dL (14.1-18.0); Lymphocytes # 3.9 K/mm3 (0.7-4.5); Lymphocytes % 41.5 % (10-50); Mean Corpuscular HGB Conc 32.3 g/dL (31.8-35.4); Mean Corpuscular Hemoglobin 27.3 pg (27.0-31.2); Mean Corpuscular Volume 84.7 fl (80-94); Mean Platelet Volume 8.5 fl (7.4-10.4); Monocytes # 0.4 K/mm3 (0.1-1.0); Monocytes % 4.4 % (1.7-9.3); Neutrophils # 4.8 K/mm3 (1.8-7.8); Platelet Count 277 K/mm3 (142-424); Red Blood Count 5.52 M/mm3 (4.60-6.20); White Blood Count 9.3 K/mm3 (4.8-10.8)
[2022-09-21 15:41] LABS: Alanine Aminotransferase 26 U/L (12-78); Albumin Level 4.4 g/dl (3.5-5.0); Albumin/Globulin Ratio 1.7 (1.1-1.8); Alkaline Phosphatase 147 U/L (38-126); Aspartate Amino Transferase 23 U/L (17-59); Bilirubin,Total 0.6 mg/dl (0.2-1.3); Blood Urea Nitrogen 10 mg/dl (9-20); Calcium 9.1 mg/dl (8.4-10.2); Carbon Dioxide 26 mmol/L (22.0-30.0); Chloride 98 mmol/L (98-107); Chol/HDL Ratio 4.4 (1-3.5); Cholesterol 171 mg/dl (140-200); Estimated Glomerular Filt Rate 166 ml/min (>60); GFR (African American) 200 ML/MIN (>60); Globulin 2.6 g/dL (1.3-3.2); Glucose 211 mg/dl (74-100); HDL Cholesterol 39 mg/dl (40-60); Sodium 141 mmol/L (136-145); Triglycerides 210 mg/dl (30-150); VLDL Cholesterol 42 mg/dL (0-40)
[2022-09-21 15:52] LABS: Direct LDL Cholesterol 104.37 mg/dL (100-129)
[2022-09-21 15:57] LABS: 25-OH Vitamin D, Total 18.1 ng/mL (30-100)
[2022-09-21 16:12] LABS: Thyroid Stimulating Hormone 1.66 uIU/mL (0.465-4.68)
[2022-09-21 16:31] LABS: Vitamin B12 371 pg/mL (239-931)
[2022-09-21 18:02] LABS: Hemoglobin A1C 8.7 % (4.0-6.0)
== END ==
PROVIDERS: PCP Nurse Practitioner Family; Visit Provider Nurse Practitioner Family
DX: E10.65 Type 1 diabetes mellitus with hyperglycemia (principal); R53.83 Other fatigue; E55.9 Vitamin D deficiency, unspecified; Z79.84 Long term (current) use of oral hypoglycemic drugs
CPT/HCPCS: 80053; 80061; 82306; 82607; 83036; 84443; 85025

== ENCOUNTER 2023-02-14 16:03 | Emergency (ER) | payer OTHER, SELFPAY ==
[2023-02-14 16:03] VITALS: BP 161/99; PULSE 87; RESP 18; TEMP 36.8; O2SAT 97; BMI 37.5
--- NOTE | 2023-02-14 16:21 | EXP.UTC ---
Discharge Plan Disposition Patient Disposition: Home, Self-Care Condition: Good Prescriptions Prescriptions: New benzonatate [benzonatate] 100 mg capsule 100 mg PO TIDP PRN (Reason: Cough) Qty: 30 0RF prednisone [prednisone] 20 mg tablet 20 mg PO BID 4 Days Qty: 8 0RF amoxicillin [amoxicillin] 875 mg tablet 875 mg PO Q12H Qty: 20 0RF No Action epinephrine 0.1 mg/mL syringe 0.1 mg SQ Q30M PRN (Reason: anaphylaxis) Qty: 10 0RF Rx Instructions: do not exceed 12 doses per 24 hrs Rexulti 3 mg tablet 3 mg PO DAILY Qty: 30 2RF trazodone 50 mg tablet 50 mg PO QHS PRN (Reason: sleep) Qty: 30 1RF (DME) lancets [Accu-Chek Softclix Lancets] Misc See Rx Instructions .Route Qty: 200 0RF Rx Instructions: As directed 1x daily cholecalciferol (vitamin D3) 25 mcg (1,000 unit) capsule 25 mcg PO DAILY Qty: 30 2RF bisoprolol fumarate 5 mg tablet See Rx Instructions .ROUTE .COMPLEX Qty: 90 0RF Dose Instruction: Take 1 tablet by mouth once daily for blood pressure Rx Instructions: Take 1 tablet by mouth once daily for blood pressure lisinopril-hydrochlorothiazide 20-12.5 mg tablet 1 tab PO DAILY Patient Comments: TAKE 1 TABLET BY MOUTH EVERY DAY glipizide 10 mg tablet extended release 24hr 10 mg PO DAILY Rx Instructions: Can take with PM meds Referrals Follow up/Referrals: Mayra Yarbrough PA [Primary Care Provider] - See instructions Activity Restrictions/Add. Instructions Additional Instructions/Restrictions: Drink plenty of fluids. Take tylenol or ibuprofen for pain or fever. Take the medications as directed. Follow up with your regular doctor. GO TO THE ER FOR ANY WORSENING SYMPTOMS Clinical Impressions Clinical Impression: Sinusitis, Bronchitis Instructions Patient Instructions: Acute Bronchitis, DI for Sinusitis, DI for Acute Bronchitis Discharge ED Provider: Natan Foreman [facility] General Stated complaint: cough Mode of Arrival: Ambulatory Source of Information: Patient Limitations: No Limitations Time Seen by Provider: 02/14/23 16:21 Description of Symptoms (Recalled from Triage Doc. by RN): cough, nasal congestion, sinus pressure, and runny nose. HEENT Symptoms (Recalled from RN notes): Yes Resp Symptoms (Recalled from RN notes): No Skin Symptoms (Recalled from RN notes): No MS Symptoms (Recalled from RN notes): No Functional Status (Recalled from RN notes): n/a History of Present Illness Provider Complaint: He states that for the past 4 days he has had sinus congestion, chest congestion, scratchy throat, and he has felt bad. He denies fever/chills/body aches. Related Data Home Medications Medication Instructions Recorded Confirmed glipizide 10 mg tablet, extended 10 mg PO DAILY Diabetes 02/14/23 02/14/23 release 24 hr lisinopril 20 1 tab PO DAILY 02/14/23 02/14/23 mg-hydrochlorothiazide 12.5 mg tablet Previous Rx's Medication Instructions Recorded epinephrine 0.1 mg/mL injection 0.1 mg SQ Q30M PRN anaphylaxis #10 01/28/21 syringe mL lancets (Accu-Chek Softclix #200 ea 09/21/22 Lancets) cholecalciferol (vitamin D3) 25 25 mcg PO DAILY #30 caps 09/22/22 mcg (1,000 unit) capsule bisoprolol fumarate 5 mg tablet See Rx Instructions .Route 10/19/22 .COMPLEX #90 tabs brexpiprazole 3 mg tablet (Rexulti) 3 mg PO DAILY #30 tabs 12/28/22 trazodone 50 mg tablet 50 mg PO QHS PRN sleep #30 tabs 12/28/22 amoxicillin 875 mg tablet 875 mg PO Q12H #20 tabs 02/14/23 benzonatate 100 mg capsule 100 mg PO TIDP PRN Cough #30 caps 02/14/23 prednisone 20 mg tablet 20 mg PO BID 4 days #8 tabs 02/14/23 Allergies Allergy/AdvReac Type Severity Reaction Status Date / Time citalopram AdvReac Intermediate Vomiting Verified 02/14/23 16:21 Worker's Comp Is this a Worker's Comp case?: No [facility] Disclaimer: The information contained in this section may have been updated after the
[2023-02-14 17:00] VITALS: BP 161/99; PULSE 87; RESP 18; TEMP 36.8; O2SAT 98
== END 2023-02-14 17:00 | disposition home or self-care (01) ==
PROVIDERS: Emergency Provider Nurse Practitioner Family; PCP Physician Assistant
DX: J20.9 Acute bronchitis, unspecified (principal); J01.90 Acute sinusitis, unspecified; K21.00 Gastro-esophageal reflux disease with esophagitis, without bleeding; F20.9 Schizophrenia, unspecified; G47.00 Insomnia, unspecified; Z87.891 Personal history of nicotine dependence
CPT/HCPCS: 99212; 99214; G0463

== ENCOUNTER → 2023-03-29 08:42 | Outpatient (CLI) | payer OTHER, SELFPAY ==
[2023-03-29 19:04] LABS: Basophils # 0.1 K/mm3 (0-0.2); Basophils % 0.7 % (0.1-2.0); Eosinophils # 0.1 K/mm3 (0.0-0.4); Eosinophils % 1.2 % (0.1-12.0); Hemoglobin 14.7 g/dL (14.1-18.0); Lymphocytes # 4.6 K/mm3 (0.7-4.5); Mean Corpuscular HGB Conc 33.5 g/dL (31.8-35.4); Mean Corpuscular Hemoglobin 28.6 pg (27.0-31.2); Mean Corpuscular Volume 85.4 fl (80-94); Mean Platelet Volume 8.9 fl (7.4-10.4); Monocytes # 0.5 K/mm3 (0.1-1.0); Monocytes % 4.8 % (1.7-9.3); Neutrophils # 4.9 K/mm3 (1.8-7.8); Neutrophils % 48.4 % (37.0-80.0); Platelet Count 298 K/mm3 (142-424); Red Blood Count 5.15 M/mm3 (4.60-6.20); Red Cell Distribution Width 14.5 % (11.5-17.5); White Blood Count 10.1 K/mm3 (4.8-10.8)
[2023-03-29 20:07] LABS: 25-OH Vitamin D, Total 15.5 ng/mL (30-100)
[2023-03-29 20:25] LABS: Hemoglobin A1C 8.7 % (4.0-6.0)
[2023-03-29 20:43] LABS: Alanine Aminotransferase 33 U/L (12-78); Albumin Level 4.4 g/dl (3.5-5.0); Albumin/Globulin Ratio 1.6 (1.1-1.8); Alkaline Phosphatase 101 U/L (38-126); Aspartate Amino Transferase 30 U/L (17-59); Bilirubin,Total 0.3 mg/dl (0.2-1.3); Blood Urea Nitrogen 14 mg/dl (9-20); Calcium 9.5 mg/dl (8.4-10.2); Carbon Dioxide 27 mmol/L (22.0-30.0); Chloride 102 mmol/L (98-107); Chol/HDL Ratio 5.6 (1-3.5); Cholesterol 196 mg/dl (140-200); Estimated Glomerular Filt Rate 139 ml/min (>60); GFR (African American) 168 ML/MIN (>60); Globulin 2.7 g/dL (1.3-3.2); Glucose 174 mg/dl (74-100); HDL Cholesterol 35 mg/dl (40-60); Sodium 139 mmol/L (136-145); Total Protein,Serum 7.1 g/dl (6.3-8.2); Triglycerides 280 mg/dl (30-150); VLDL Cholesterol 56 mg/dL (0-40)
[2023-03-29 20:54] LABS: Direct LDL Cholesterol 118.57 mg/dL (100-129)
[2023-03-29 21:13] LABS: Thyroid Stimulating Hormone 2.17 uIU/mL (0.465-4.68)
== END ==
PROVIDERS: PCP Physician Assistant; Visit Provider Physician Assistant
DX: E11.9 Type 2 diabetes mellitus without complications (principal); Z79.84 Long term (current) use of oral hypoglycemic drugs; E55.9 Vitamin D deficiency, unspecified; Z68.37 Body mass index [BMI] 37.0-37.9, adult
CPT/HCPCS: 80053; 80061; 82306; 83036; 84443; 85025

== ENCOUNTER 2024-01-30 13:59 | Emergency (ER) | payer OTHER, SELFPAY ==
[2024-01-30 14:09] VITALS: BP 157/107; PULSE 84; RESP 16; TEMP 36.8; O2SAT 96; BMI 35.4
--- NOTE | 2024-01-30 14:09 | ED_ITS ---
Discharge Plan Disposition Patient Disposition: Home, Self-Care Condition: Good Prescriptions Prescriptions: New nystatin 100,000 unit/gram cream 1 applic topical BID 7 Days Qty: 15 0RF cephalexin 500 mg capsule 500 mg PO QID Qty: 40 0RF No Action epinephrine 0.1 mg/mL syringe 0.1 mg SQ Q30M PRN (Reason: anaphylaxis) Qty: 10 0RF Rx Instructions: do not exceed 12 doses per 24 hrs trazodone 50 mg tablet 50 mg PO QHS PRN (Reason: sleep) Qty: 30 1RF albuterol sulfate [Proventil HFA] 90 mcg/actuation HFA aerosol inhaler 2 puff inhalation Q6H Qty: 6.7 0RF Vraylar 4.5 mg capsule 4.5 mg PO DAILY Qty: 30 2RF (DME) lancets [Accu-Chek Softclix Lancets] Misc See Rx Instructions .Route Qty: 200 0RF Rx Instructions: As directed 1x daily bisoprolol fumarate 5 mg tablet See Rx Instructions .ROUTE .COMPLEX Qty: 90 0RF Dose Instruction: Take 1 tablet by mouth once daily for blood pressure Rx Instructions: Take 1 tablet by mouth once daily for blood pressure ergocalciferol (vitamin D2) 1,250 mcg (50,000 unit) capsule 1,250 mcg PO WEEKLY Qty: 14 3RF cholecalciferol (vitamin D3) 50 mcg (2,000 unit) capsule 50 mcg PO DAILY Qty: 90 3RF Farxiga 10 mg tablet 10 mg PO DAILY Qty: 90 0RF bupropion HCl [Wellbutrin XL] 150 mg tablet extended release 24 hr 150 mg PO DAILY Qty: 30 1RF duloxetine [Cymbalta] 60 mg capsule,delayed release(DR/EC) 60 mg PO DAILY Qty: 30 1RF lisinopril-hydrochlorothiazide 20-12.5 mg tablet 1 tab PO DAILY Patient Comments: TAKE 1 TABLET BY MOUTH EVERY DAY glipizide 10 mg tablet extended release 24hr 10 mg PO DAILY Rx Instructions: Can take with PM meds Referrals Follow up/Referrals: Provider,Referral, MD [Primary Care Provider] - See instructions Activity Restrictions/Add. Instructions Additional Instructions/Restrictions: Keep the area clean and dry. Make sure you work very hard to keep your belly button as dry as you can. Watch the area for signs of worsening infection, such as worsening redness, swelling, drainage, fever. etc. Take tylenol or ibuprofen for pain. Follow up with your regular doctor. Since you are a diabetic, make sure you follow up for a recheck. GO TO THE ER FOR ANY WORSENING SYMPTOMS OR CONCERNS. We took a culture the affected area. That will tell what bacteria (or if its yeast) is causing your infection and which antibiotics will treat it best.This test takes 3 days to complete. Clinical Impressions Clinical Impression: Navel cellulitis, Diabetes Print Language Print Language: Portuguese Discharge ED Provider: Natan Foreman [facility] [place] HPI General Stated complaint: possible infection in belly button Time Seen by Provider: 01/30/24 14:09 History of Present Illness Provider Complaint: He states that for the past 2 days he has had worsening redness with tannish discharge in his navel. He is a diabetic. He denies and fever/chills. Related Data Home Medications ?Medication ?Instructions ?Recorded ?Confirmed glipizide 10 mg tablet, extended 10 mg PO DAILY Diabetes 02/14/23 01/17/24 release 24 hr lisinopril 20 1 tab PO DAILY 02/14/23 01/17/24 mg-hydrochlorothiazide 12.5 mg tablet Previous Rx's ?Medication ?Instructions ?Recorded epinephrine 0.1 mg/mL injection 0.1 mg SQ Q30M PRN anaphylaxis #10 01/28/21 syringe mL lancets (Accu-Chek Softclix #200 ea 09/21/22 Lancets) bisoprolol fumarate 5 mg tablet See Rx Instructions .Route 03/10/23 .COMPLEX #90 tabs albuterol sulfate 90 mcg/actuation 2 puff inhalation Q6H #6.7 grams 03/29/23 aerosol inhaler (Proventil HFA) cholecalciferol (vitamin D3) 50 50 mcg PO DAILY #90 caps 03/30/23 mcg (2,000 unit) capsule ergocalciferol (vitamin D2) 1,250 1,250 mcg PO WEEKLY #14 caps 03/30/23 mcg (50,000 unit) capsule dapagliflozin propanediol 10 mg 10 mg PO DAILY #90 tabs 08/25/23 tablet (Farxiga) cariprazine 4.5 mg capsule 4.5 mg PO DAILY #30 caps 12/15/23 (Vraylar) trazodone 50 mg tablet 50 mg PO QHS PRN sleep #30 tabs 01/05/24 bupropion HCl 150 mg 24 hr tablet, 150 mg PO DAILY #30 tabs 01/14/24 extended release (Wellbutrin XL) duloxetine 60 mg capsule,delayed 60 mg PO DAILY #30 caps 01/14/24 release (Cymbalta) cephalexin 500 mg capsule 500 mg PO QID #40 caps 01/30/24 nystatin 100,000 unit/gram topical 1 applic topical BID 7 days #15 01/30/24 cream grams Allergies Allergy/AdvReac Type Severity Reaction Status Date / Time citalopram AdvReac Intermediate Vomiting Verified 12/27/23 10:27 PFSH PFS Disclaimer: The information contained in this section may have been updated after the patient was seen, as this information can be updated by other users. Medical History (Updated 01/30/24 @ 14:36 by Natan Foreman APRN) Major depressive disorder Insomnia Schizophrenia Dizziness SOB (shortness of breath) GERD with esophagitis Family History Other Diabetes Heart attack Substance abuse Social History Smoking Status: Former smoker tobacco type: e-cigarettes alcohol intake: never substance use type: denies use and marijuana current occupational status: unemployed and other Travel in the last 8 weeks: None household members: family housing: house number of children: 0 caffeine: Yes ROS Obtained: Yes All systems reviewed & no additional complaints except as documented Constitutional Constitutional: Denies chills and Denies fever(s) Eyes Eyes: Denies eye discharge ENT Ears, Nose, Mouth, and Throat: Denies dizziness, Denies otalgia and Denies sore throat Cardiovascular Cardiovascular: Denies chest pain Respiratory Respiratory: Denies shortness of breath, Denies chest congestion, Denies cough, Denies stridor and Denies wheezing Gastrointestinal Gastrointestingal: Denies nausea or vomiting Musculoskeletal Musculoskeletal: Reports system reviewed and no additional complaints, except as documented and Denies arthralgias Integumentary/Breasts Skin/Breast: Reports as per HPI and Reports redness Neurologic Neurologic: Denies dizziness and Denies paresthesias Allergic/Immunologic Allergic/Immunologic: Denies wheezing Physical Exam General General appearance: alert and in no apparent distress Head Head exam: atraumatic, normocephalic and normal inspection Eye Eye exam: Present normal appearance, PERRL and EOMI ENT ENT exam: Present normal exam, normal oropharynx, mucous membranes moist, TM's normal bilaterally and normal external ear exam Neck Neck exam: Present normal inspection, full ROM and trachea midline; Absent meningismus or lymphadenopathy Chest Chest inspection: Present normal inspection and symmetric chest wall rise; Absent tenderness Respiratory Respiratory exam: Present normal lung sounds bilaterally; Absent respiratory distress Cardiovascular Cardiovascular exam: Present regular rate and normal rhythm; Absent JVD Abdominal Exam Abdominal exam: Present soft and normal bowel sounds; Absent distention, tenderness or guarding Extremities Exam Extremities exam: Present normal inspection, full ROM and normal capillary refill; Absent calf tenderness Back Exam Back exam: Present normal inspection; Absent tenderness Neurological Exam Neurological exam: Present alert and oriented X3 Psychiatric Psychiatric exam: Present normal affect and normal mood Skin Skin exam: Present erythema (there is redness with tannish drainage noted in his navel. ) Lymphatic Lymphatic Findings: no adenopathy Medical Decision Making Medical Records Medical records reviewed: No I reviewed the patient's medical records. Screening: Per USPSTF and CDC recommendations, given the prevalence of disease in our region, it is our hospital?s policy to screen for HIV and viral Hepatitis for all patients aged 18 and over and those with ongoing risk factors. [place] Inquiry Pt receiving controlled substance: No
[2024-01-30 14:49] VITALS: BP 157/107; PULSE 84; RESP 16; TEMP 36.8; O2SAT 96
--- NOTE | 2024-02-04 15:36 | PC.NURSE ---
REVIEWED PATIENT'S WOUND CULTURE WITH Toya MARTINEZ APRN. NO CHANGE NEEDED AT THIS TIME
== END 2024-01-30 14:50 | disposition home or self-care (01) ==
PROVIDERS: Emergency Provider Nurse Practitioner Family
DX: L03.316 Cellulitis of umbilicus (principal); B95.7 Other staphylococcus as the cause of diseases classified elsewhere; E11.9 Type 2 diabetes mellitus without complications; Z79.84 Long term (current) use of oral hypoglycemic drugs
CPT/HCPCS: 87070; 87077; 87186; 87205; 99212; 99214; G0463

== ENCOUNTER 2024-02-29 18:32 | Emergency (ER) | payer OTHER, SELFPAY ==
--- NOTE | 2024-02-29 18:30 | ECG_ITS ---
APPROVED REPORT Exam: Resting ECG HR:123 bpm ECG Measurements Heart Rate 123 AXES PA 155 P 61 QRSd 105 QRS -10 QT 320 T 28 QTc 393 Conclusion Sinus tachycardia Leftward axis Electronically signed by : SABA AUSTIN, 02/29/2024 20:53:50
--- NOTE | 2024-02-29 18:42 | CT_ITS ---
PROCEDURE INFORMATION: Exam: CTA Chest With Contrast Exam date and time: 02/29/2024 7:35 PM Age: 23 years old Clinical indication: Tachypnea; Additional info: Tachycardia, SOA, cp, pulmonic murmur TECHNIQUE: Imaging protocol: Computed tomographic angiography of the chest with contrast. Exam focused on the arteries. 3D rendering (Not supervised by radiologist): MIP and/or 3D reconstructed images were created by the technologist. Radiation optimization: All CT scans at this facility use at least one of these dose optimization techniques: automated exposure control; mA and/or kV adjustment per patient size (includes targeted exams where dose is matched to clinical indication); or iterative reconstruction. Contrast material: ISOVUE 370; Contrast volume: 75 ml; Contrast route: INTRAVENOUS (IV); COMPARISON: CR CXR2V XR chest 2V 10/24/2017 6:18 PM FINDINGS: Pulmonary arteries: Normal. No pulmonary emboli. Aorta: Unremarkable. No aortic aneurysm. No aortic dissection. Lungs: Unremarkable. No consolidation. No masses. Pleural spaces: Unremarkable. No pneumothorax. No pleural effusion. Heart: Unremarkable. No cardiomegaly. No pericardial effusion. No coronary artery calcification is identified Lymph nodes: Unremarkable. No enlarged lymph nodes. Bones/joints: Compression fractures of unknown age along the lower thoracic spine Soft tissues: Unremarkable. IMPRESSION: No acute findings.
[2024-02-29 18:43] VITALS: BP 129/92; PULSE 125; RESP 18; TEMP 36.4; O2SAT 98; BMI 35.5
[2024-02-29] MEDS: ASPIRIN 81MG CHEWABLE TABLET 324 MG PO (18:49)
[2024-02-29 18:51] LABS: Basophils # 0.2 K/mm3 (0-0.2); Basophils % 1.6 % (0.1-2.0); Eosinophils # 0.1 K/mm3 (0.0-0.4); Eosinophils % 0.8 % (0.1-12.0); Hematocrit 52.6 % (42.0-52.0); Hemoglobin 17.9 g/dL (14.1-18.0); Lymphocytes # 3.9 K/mm3 (0.7-4.5); Lymphocytes % 33.7 % (10-50); Mean Corpuscular Hemoglobin 28.9 pg (27.0-31.2); Mean Corpuscular Volume 85.2 fl (80-94); Mean Platelet Volume 7.4 fl (7.4-10.4); Monocytes # 0.5 K/mm3 (0.1-1.0); Monocytes % 4.3 % (1.7-9.3); Neutrophils % 59.6 % (37.0-80.0); Platelet Count 266 K/mm3 (142-424); Red Blood Count 6.17 M/mm3 (4.60-6.20); Red Cell Distribution Width 13.8 % (11.5-17.5); White Blood Count 11.7 K/mm3 (4.8-10.8)
[2024-02-29 19:00] LABS: VBG Base Excess 5.6 mmol/L (-2.4-2.3); VBG HCO3 30.2 mmol/L (23-30); VBG Oxygen Saturation 80.4 % (50-70); VBG PCO2 48.9 mmol/L (35-51); VBG PH 7.41 mmol/L (7.31-7.41); VBG PO2 43.2 mmol/L (28-40); VBG Total CO2 31.7 mmol/L (23-27)
[2024-02-29 19:01] LABS: Lactate Venous 2.4 mmol/L (0.4-2.0)
[2024-02-29 19:01] LABS: Activated Partial Thrombo Time 29.8 seconds (22.8-30.6); Prothrombin Time 11.2 seconds (10.1-12.5)
--- NOTE | 2024-02-29 19:10 | [facility].EDCP ---
Discharge Plan Disposition Patient Disposition: Home, Self-Care Chief Complaint: Chest Pain Prescriptions Prescriptions: No Action Vraylar 4.5 mg capsule 4.5 mg PO DAILY Qty: 30 2RF trazodone 50 mg tablet 50 mg PO QHS PRN (Reason: sleep) Qty: 30 1RF oxcarbazepine [Trileptal] 300 mg tablet 300 mg PO BID Qty: 60 1RF bupropion HCl [Wellbutrin XL] 300 mg tablet extended release 24 hr 300 mg PO DAILY Qty: 30 1RF duloxetine 60 mg capsule,delayed release(DR/EC) 60 mg PO DAILY lisinopril-hydrochlorothiazide 20-12.5 mg tablet 1 tab PO DAILY Qty: 90 0RF Farxiga 10 mg tablet 10 mg PO DAILY Qty: 90 0RF albuterol sulfate [Proventil HFA] 90 mcg/actuation HFA aerosol inhaler 2 puff inhalation Q6H Qty: 6.7 0RF (DME) lancets [Accu-Chek Softclix Lancets] Misc See Rx Instructions .Route Qty: 200 0RF Rx Instructions: As directed 1x daily Referrals Follow up/Referrals: Audelia Valenzuela APRN [Primary Care Provider] - See instructions Varun Carey MD [Staff Physician] - See instructions Activity Restrictions/Add. Instructions Additional Instructions/Restrictions: Call your family doctor to establish care for this visit to the emergency department and schedule follow-up within 48 hours to ensure improvement. If you have any worsening of your condition or any other concerning signs or symptoms, return to the emergency department or your primary care doctor for further evaluation. Follow-up with Dr. Carey's team for further cardiology evaluation Clinical Impressions Clinical Impression: Chest pain Print Language Print Language: Khmer Discharge ED Provider: Pascual Agosto General Chief Complaint: Chest Pain Stated Complaint: cp Time Seen by Provider: 02/29/24 18:36 Mode of Arrival: Ambulatory Source of Information: Patient Limitations: No Limitations Description of Symptoms (Recalled from ER Triage Doc. by RN): pt states last night he started having sharp, 7/10, L chest pain while resting. pt states his chest is not hurting at this time but the pain comes intermittantly. pt also reports epigasteric pain that is 7/10 and cramping in nature, N/V and intermittant SOA. pt has a hx of HTN, asthma and DM. History of Present Illness HPI narrative: Please note that above description of symptoms, in this electronic medical record under categorization of recalled from ER triage doctor by RN are reflective of an initial nursing assessment, however, is not reflective of my full history and physical exam that was personally taken and clarified. Consequentially, this preceding description of symptoms, which may include the patient's categorized chief complaint in the EMR, do not reflect my personal clinical impression, and the ultimate description of history of present illness and patient stated complaints should be deferred to this section of the note. Unless stated otherwise or congruent with this section of the note, additional signs, symptoms, or incongruence should be interpreted as inaccurate with my clinical impression. Related Data Home Medications ?Medication ?Instructions ?Recorded ?Confirmed duloxetine 60 mg capsule,delayed 60 mg PO DAILY 02/14/24 02/20/24 release Previous Rx's ?Medication ?Instructions ?Recorded lancets (Accu-Chek Softclix #200 ea 09/21/22 Lancets) albuterol sulfate 90 mcg/actuation 2 puff inhalation Q6H #6.7 grams 03/29/23 aerosol inhaler (Proventil HFA) bupropion HCl 300 mg 24 hr tablet, 300 mg PO DAILY #30 tabs 02/10/24 extended release (Wellbutrin XL) cariprazine 4.5 mg capsule 4.5 mg PO DAILY #30 caps 02/10/24 (Vraylar) oxcarbazepine 300 mg tablet 300 mg PO BID #60 tabs 02/10/24 (Trileptal) trazodone 50 mg tablet 50 mg PO QHS PRN sleep #30 tabs 02/10/24 dapagliflozin propanediol 10 mg 10 mg PO DAILY #90 tabs 02/14/24 tablet (Farxiga) lisinopril 20 1 tab PO DAILY #90 tabs 02/14/24 mg-hydrochlorothiazide 12.5 mg tablet Allergies Allergy/AdvReac Type Severity Reaction Status Date / Time citalopram AdvReac Intermediate Vomiting Verified 02/14/24 14:31 [facility] Disclaimer: The information contained in this section may have been updated after the patient was seen, as this information can be updated by other users. Medical History Major depressive disorder Insomnia Schizophrenia Dizziness SOB (shortness of breath) GERD with esophagitis Family History Other Diabetes Heart attack Substance abuse Social History Smoking Status: Never smoker alcohol intake: never substance use type: denies use and marijuana current occupational status: unemployed and other Travel in the last 8 weeks: None household members: family housing: house number of children: 0 caffeine: Yes Other Medical History Have you received the Flu Vaccine for this season: No Have you received the Pneumonia Vaccine: No ROS Obtained: Yes All systems reviewed & no additional complaints except as documented Physical Exam General General appearance: alert, in no apparent distress and obese Neck Neck exam: Present trachea midline Chest Chest inspection: Present normal inspection and symmetric chest wall rise Respiratory Respiratory exam: Present normal lung sounds bilaterally; Absent respiratory distress, wheezes, stridor, accessory muscle use or prolonged expiratory phase Cardiovascular Cardiovascular exam: Present normal rhythm, tachycardia, diastolic murmur (LUSB) and other (Pulses equal and symmetric in upper and lower extremities) Abdominal Exam Abdominal exam: Present soft; Absent distention, tenderness, guarding or rebound Extremities Exam Extremities exam: Absent edema Neurological Exam Neurological exam: Present alert, oriented X3, CN II-XII intact and normal gait; Absent motor sensory deficit Skin Skin exam: Present warm and dry; Absent cyanosis, diaphoresis or pallor HEART Score HEART Score HEART Score assessment performed?: Yes History (anamnesis): Moderately suspicious ECG: Normal Age: <45 years Risk factors: 1-2 risk factors Troponin: </= normal limit HEART Score: 2 Critical Care Critical Care Time Critical Care Time: No Medical Decision Making Medical Records Medical records reviewed: Yes I reviewed the patient's medical records. Haroon Inquiry Pt receiving controlled substance: No Haroon was queried for this patient: No Vital Signs Vital Signs: 02/29/24 18:43 02/29/24 20:00 02/29/24 20:30 Temperature 97.6 F Temperature Source Oral Pulse Rate 113 H 113 H Pulse Rate [Left] 125 H Respiratory Rate 18 14 17 Blood Pressure 119/74 105/68 L Blood Pressure [Right Arm] 129/92 H Blood Pressure Mean 82 81 Blood Pressure Mean [Right Arm] 104 Blood Pressure Source [Right Arm] Automatic Cuff Blood Pressure Position [Right Arm] Sitting 02 Sat by Pulse Oximetry 98 96 95 Oxygen Delivery Method Room Air Lab Data Labs: Lab Results 02/29/24 18:40: WBC 11.7 H, RBC 6.17, Hgb 17.9, Hct 52.6 H, MCV 85.2, MCH 28.9, MCHC 34.0, RDW 13.8, Plt Count 266, MPV 7.4, Neut % (Auto) 59.6, Lymph % (Auto) 33.7, [place] % (Auto) 4.3, Eos % (Auto) 0.8, Baso % (Auto) 1.6, Neut # (Auto) 7.0, Lymph # (Auto) 3.9, [place] # (Auto) 0.5, Eos # (Auto) 0.1, Baso # (Auto) 0.2, PT 11.2, INR 1.00, APTT 29.8, Sodium 134 L, Potassium 3.2 L, Chloride 94 L, Carbon Dioxide 32 H, Anion Gap 11.2, BUN 24 H, Creatinine 1.10, Estimated Creat Clear 198, Estimated GFR 82, Est GFR ( Amer) 99, Glucose 319 H, Calcium 9.9, Magnesium 1.9, Total Bilirubin 0.6, AST 28, ALT 31, Alkaline Phosphatase 144 H, Troponin I < 0.01, NT-Pro-B Natriuret Pep < 20.0, Total Protein 8.3 H, Albumin 5.1 H, Globulin 3.2, Albumin/Globulin Ratio 1.6, Lipase 249, TSH 3.33, Thyroxine (T4) 9.1, HIV 1&2 Antibody Rapid Nonreactive 02/29/24 18:43: VBG pH 7.41, VBG pCO2 48.9, VBG pO2 43.2 H, VBG HCO3 30.2 H, VBG Total CO2 31.7 H, VBG O2 Saturation 80.4 H, VBG Base Excess 5.6 H, VBG Lactic Acid 2.4 H 02/29/24 18:40 02/29/24 18:40 Response Orders (Tests/Meds): ED MEDICATIONS Generic Name Dose Route Start Last Admin Trade Name Freq PRN Reason Stop Dose Admin Lactated Ringer's 1,000 mls @ 999 mls/hr 02/29/24 20:18 02/29/24 20:32 Lactated Ringer's 1000 Ml Bag IV 02/29/24 21:18 999 mls/hr .Q1H1M ONE Administration Sodium Chloride 10 ml 02/29/24 19:33 02/29/24 19:37 Sodium Chloride 0.9% 10ml Syr (Rad Only) IV 03/30/24 19:32 10 ml NEEDED PRN Administration Maintain IV Site Discontinued Medications Generic Name Dose Route Start Last Admin Trade Name Carlito PRN Reason Stop Dose Admin Aspirin 324 mg 02/29/24 18:41 02/29/24 18:49 Aspirin 81mg Chewable Tablet PO 02/29/24 18:42 324 mg ONCE ONE Administration Iopamidol 75 ml 02/29/24 19:33 02/29/24 19:37 Iopamidol-370 (76%);100ml Bottle IV 02/29/24 19:34 75 ml ONCE ONE Administration Potassium Chloride 60 meq 02/29/24 20:31 02/29/24 21:03 Potassium Chloride 20meq Tab PO 02/29/24 20:32 60 meq ONCE ONE Administration Sodium Chloride 50 ml 02/29/24 19:33 02/29/24 19:37 0.9 % Sodium Chloride 50 Ml Vial IV 02/29/24 19:34 50 ml ONCE ONE Administration ORDERS Category Date Time Status CT angio chest PE protocol Stat Cat Scan 02/29/24 18:42 Completed Complete Blood Count Auto Diff Stat Lab 02/29/24 18:40 Completed Comprehensive Metabolic Panel Stat Lab 02/29/24 18:40 Completed HIV (1&2) Antibody Rapid Stat Lab 02/29/24 18:40 Completed Hep C Ab with Reflex to RNA Stat Lab 02/29/24 18:40 Received Lipase Stat Lab 02/29/24 18:40 Completed Magnesium Stat Lab 02/29/24 18:40 Completed NT Pro Brain Natriuretic Pep. Stat Lab 02/29/24 18:40 Completed PT INR [Prothrombin Time INR] Stat Lab 02/29/24 18:40 Completed PTT [Activated Partial Thrombo Time] Stat Lab 02/29/24 18:40 Completed Rapid PCR Covid and Flu A/B Stat Lab 02/29/24 21:06 Ordered T4 (Thyroxine) Stat Lab 02/29/24 18:40 Completed TSH [Thyroid Stimulating Hormone] Stat Lab 02/29/24 18:40 Completed Troponin I Q3H Lab 02/29/24 21:45 Ordered Troponin I Q3H Lab 03/01/24 00:45 Ordered Troponin I Stat Lab 02/29/24 18:40 Completed UDS [Drug Screen,Urine] Stat Lab 02/29/24 19:19 Received Blood Culture Stat Micro 02/29/24 18:58 Received Venous Blood Gas Stat RT 02/29/24 18:43 Completed MDM Narrative Medical Decision Narrative: 23-year-old male history of hypertension, hyperlipidemia, diabetes, morbid obesity presenting with chest pain. Patient states that started having chest pain yesterday, 02/26 1 in the PM. Intermittent, comes and goes, not currently having the pain. It is severe, 7-10 out of 10, does not radiate. Associated with intermittent diaphoresis and nausea. No shortness of breath. States that he is short of breath at baseline. It is not positional, does not notice anything that makes it come or go. Goes away on its own. Has never had pain like this in the past. No DVT or PE risk factors. History was obtained via conversation with patient. On arrival, patient hemodynamically stable, alert, oriented x4, appropriate, GCS 15, moving all extremities spontaneously, pupils equal and reactive to light. Full physical exam performed and significant for chronically ill, morbidly obese patient initially in no acute distress. Nontachypneic, normotensive. During patient's initial physical examination, became tachycardic, pale. Lungs clear to auscultation anterior and posterior bilaterally. Patient has left upper sternal border diastolic murmur that is 2 out of 6 and does not radiate. Abdomen soft, nontender, nondistended. No lower extremity edema. Neurologically intact and ambulatory. Differential includes microvascular coronary artery disease, CHF, ACS, MT, coronary artery dissection, pneumothorax, PE, dissection, pericarditis, myocarditis, pneumothorax, aortic aneurysm, pneumonia, bronchitis, pancreatitis, gastritis, among others. Patient was given 324 mg aspirin for symptomatic management and correction of underlying abnormalities. Patient placed on continuous cardiac monitoring and continuous pulse ox with initial blood pressure 129/92, heart rate 25, saturation 98% on room air. Independent interpretation of EKG shows sinus tachycardia [address] or T wave changes concerning for acute ischemia. No evidence of right heart strain. GA 155, QRS 105, QTc 393. Leftward leaning axis. Workup independently interpreted and significant for leukocytosis 11.7. Normal coags. VBG with normal pH, normal bicarb, normal CO2. Lactate mildly elevated 2.4, nonactionable. Mild hypokalemia 3.2, this was repleted p.o. Glucose elevated 319. Normal kidney function, no elevated anion gap. Troponin and BNP negative. Thyroid studies normal. On independent interpretation of imaging, no obvious PE. No pneumothorax. No evidence of dissection. See radiology read for full review of final results. Heart score 2. On reevaluation, patient states he is feeling much better. Given patient presentation, workup, history, this most likely represents anxiety versus musculoskeletal chest pain versus nonischemic cardiac chest pain. Patient does have risk factors, was recommended that he follow-up with cardiology outpatient. Because patient at baseline without signs or symptoms of clinical decompensation, deemed appropriate for discharge. Results were relayed to patient who voiced understanding and were agreeable to outpatient management and follow up. I discussed my clinical impression with patient and answered all questions. At this time, the evidence for any other entities in the differential is insufficient to warrant any further testing or ED observation. This was explained as well. Advisory was given that persistent or worsening symptoms require further evaluation. I confirmed the understanding of this discussion. Sound Editor disclaimer Much of this encounter note is an electronic associate professor of english spoken language to printed text. Electronic associate professor of english of the spoken language may permit errors. Although I have reviewed the note, some errors may still exist.
[2024-02-29 19:14] LABS: Albumin Level 5.1 g/dl (3.5-5.0); Albumin/Globulin Ratio 1.6 (1.1-1.8); Alkaline Phosphatase 144 U/L (38-126); Anion Gap 11.2 mEq/L (5-15); Bilirubin,Total 0.6 mg/dl (0.2-1.3); Blood Urea Nitrogen 24 mg/dl (9-20); Calcium 9.9 mg/dl (8.4-10.2); Carbon Dioxide 32 mmol/L (22.0-30.0); Chloride 94 mmol/L (98-107); Creatinine Clearance Estimated 198 mL/min (50-200); Estimated Glomerular Filt Rate 82 ml/min (>60); GFR (African American) 99 ML/MIN (>60); Globulin 3.2 g/dL (1.3-3.2); Glucose 319 mg/dl (74-100); Lipase 249 U/L (23-300); Magnesium 1.9 mg/dl (1.6-2.3); Potassium 3.2 mmoL/L (3.5-5.1); Sodium 134 mmol/L (136-145); Total Protein,Serum 8.3 g/dl (6.3-8.2)
[2024-02-29 19:26] LABS: NT Pro Brain Natriuretic Pep. < 20.0 pg/mL (0-125); Troponin I < 0.01 ng/ml (0.00-0.034)
[2024-02-29 19:30] LABS: T4 (Thyroxine) 9.1 ug/dl (5.53-11.0)
[2024-02-29] MEDS: SODIUM CHLORIDE 0.9% 10ML SYR (RAD ONLY) 10 ML IV (19:37)
[2024-02-29] MEDS: 0.9 % SODIUM CHLORIDE 50 ML VIAL IV (19:37)
[2024-02-29] MEDS: IOPAMIDOL-370 (76%);100ML BOTTLE 75 ML IV (19:37)
--- NOTE | 2024-02-29 19:40 | PC.NURSE ---
radiology staff called, patient complaining about being short of breath after receiving contrast, Veronica Chiu RN responding
[2024-02-29 19:45] LABS: Thyroid Stimulating Hormone 3.33 uIU/mL (0.465-4.68)
[2024-02-29 19:46] LABS: Alanine Aminotransferase 31 U/L (12-78); Aspartate Amino Transferase 28 U/L (17-59)
[2024-02-29 20:00] VITALS: BP 119/74; PULSE 113; RESP 14; O2SAT 96
[2024-02-29 20:04] LABS: HIV (1&2) Antibody Rapid NONREACTIVE (NONREACTIVE)
[2024-02-29 20:30] VITALS: BP 105/68; PULSE 113; RESP 17; O2SAT 95
[2024-02-29] MEDS: LACTATED RINGERS 1000ML 1,000 ML 999 ML IV (20:32)
[2024-02-29 20:56] LABS: Benzodiazepines Screen,Urine Negative ng/ml (<200)
[2024-02-29 20:57] LABS: Amphetamine/Metha Screen,Urine Negative ng/ml (<1000); Barbiturates Screen,Urine Negative ng/ml (<200)
[2024-02-29 20:58] LABS: Cannabinoid Screen,Urine Positive ng/ml (<50); Cocaine Screen,Urine Negative ng/ml (<300)
[2024-02-29 20:59] LABS: Methadone Screen,Urine Negative ng/ml (<300)
[2024-02-29 21:00] LABS: Opiate Screen,Urine Negative ng/ml (<300); Phencyclidine Screen,Urine Negative ng/ml (<25)
[2024-02-29] MEDS: POTASSIUM CHLORIDE 20MEQ TAB 60 MEQ PO (21:03)
[2024-02-29 21:12] LABS: Coronavirus 19, PCR Not Detected (NotDetected); Influenza A, PCR Not Detected (NotDetected); Influenza B, PCR Not Detected (NotDetected)
[2024-02-29 21:20] VITALS: BP 125/88; PULSE 11; RESP 25; TEMP 37; O2SAT 95
[2024-03-01 15:02] LABS: Microscopic, Urine URINE MICROSCOPIC (MICROSCOPIC)
[2024-03-01 16:04] LABS: Appearance,Urine CLEAR (Clear); Bilirubin,Urine Negative (Negative); Blood, Urine Negative (Negative); Color,Urine YELLOW (Yellow); Glucose,Urine (UA) 3+ (Negative); Ketones,Urine Negative (Negative); Leukocyte Esterase,Urine Negative (Negative); Nitrate,Urine Negative (Negative); Protein,Urine Negative (Negative); Urobilinogen,Urine 0.2 EU/dl (0.2)
[2024-03-01 17:46] LABS: Bacteria,Urine 1+ /lpf; RBC,Urine Occasional #/hpf (0-3); WBC,Urine Occasional #/hpf (0-3)
[2024-03-02 09:33] LABS: HCV Ab Non Reactive (Non Reactive)
== END 2024-02-29 21:21 | disposition home or self-care (01) ==
PROVIDERS: Emergency Provider Emergency Medicine; PCP Family Medicine
DX: R07.9 Chest pain, unspecified (principal); R10.13 Epigastric pain; R11.2 Nausea with vomiting, unspecified; R06.02 Shortness of breath
CPT/HCPCS: 71275; 80050; 80053; 80307; 81001; 82803; 83690; 83735; 83880; 84436; 84443; 84484; 85025; 85610; 85730; 86803; 87040; 87389; 87636; 93005; 96360; 99285; J7120; Q9967

== ENCOUNTER 2024-03-01 14:11 | Outpatient (CLI) | payer OTHER, SELFPAY | END 2024-03-01 23:59 | disposition home or self-care (01) | LOC: LAB.DROPOF 03-07 14:12 | PROVIDERS: PCP Family Medicine; Visit Provider Family Medicine | DX: N39.0 Urinary tract infection, site not specified (principal); D72.829 Elevated white blood cell count, unspecified | CPT/HCPCS: 87086 ==

== ENCOUNTER 2024-03-07 07:46 | Outpatient (CLI) | payer OTHER, SELFPAY ==
--- NOTE | 2024-03-07 07:50 | CT_ITS ---
PROCEDURE INFORMATION: Exam: CT Abdomen And Pelvis With Contrast Exam date and time: 03/07/2024 8:18 AM Age: 23 years old Clinical indication: Pain and abnormal findings; Mass, lump, or swelling; Other parts of digestive tract; Abdominal pain; Generalized; Additional info: Abd pain, colon lesion TECHNIQUE: Imaging protocol: Computed tomography of the abdomen and pelvis with contrast. Radiation optimization: All CT scans at this facility use at least one of these dose optimization techniques: automated exposure control; mA and/or kV adjustment per patient size (includes targeted exams where dose is matched to clinical indication); or iterative reconstruction. Contrast material: ISOVUE 370; Contrast volume: 75 ml; Contrast route: IV; COMPARISON: CT ABDOMEN PELVIS WO CON 01/04/2019 5:06 AM FINDINGS: Liver: Normal. No mass. Gallbladder and biliary ducts: Normal. No calcified stones. No ductal dilation. Pancreas: Normal. No ductal dilation. Spleen: Normal. No splenomegaly. Adrenal glands: Normal. No mass. Kidneys and ureters: Normal. No hydronephrosis. Stomach and bowel: Unremarkable. No obstruction. No mucosal thickening. Appendix: No evidence of appendicitis. Intraperitoneal space: Unremarkable. No free air. No significant fluid collection. Vasculature: Unremarkable. No abdominal aortic aneurysm. Lymph nodes: Unremarkable. No enlarged lymph nodes. Urinary bladder: Unremarkable as visualized. Reproductive: Unremarkable as visualized. Bones/joints: Unremarkable. No acute fracture. Soft tissues: Unremarkable. IMPRESSION: No acute findings.
[2024-03-07] MEDS: SODIUM CHLORIDE 0.9% 10ML SYR (RAD ONLY) 10 ML IV (08:33)
[2024-03-07] MEDS: IOPAMIDOL-370 (76%);100ML BOTTLE 75 ML IV (08:33)
== END 2024-03-07 23:59 | disposition home or self-care (01) ==
LOC: RAD 07:47
PROVIDERS: PCP Family Medicine; Visit Provider Family Medicine
DX: R19.8 Other specified symptoms and signs involving the digestive system and abdomen (principal); R11.2 Nausea with vomiting, unspecified; K63.9 Disease of intestine, unspecified; R10.9 Unspecified abdominal pain; R93.5 Abnormal findings on diagnostic imaging of other abdominal regions, including retroperitoneum; D72.829 Elevated white blood cell count, unspecified
CPT/HCPCS: 74177; Q9967

== ENCOUNTER 2024-03-23 07:50 | Outpatient (CLI) | payer OTHER, SELFPAY ==
--- NOTE | 2024-03-23 | CA_ITS ---
APPROVED REPORT Exam: Pharmacologic Technologist: Emerita Maldonado Ht: 6 ft 4 in Wt: 282 lbs BSA: 2.56 m2 HR: 61 bpm BP: 135/82 mmHg Rhythm: Nsr, cannot r/o old anterior SD Medical History Medications: Albuterol, Wellbutrin, Vraylar, Farxiga, Colace, Duloxetine, Lisinopril HCTZ, Omeprazole, Ondansetron, Trileptal, Miralax, Trazadone Allergies: Citalopram Stress Test Details Test: Lexiscan Reason for pharmacologic stress test: physical limitation. HR Resting HR: 61 bpm Max Heart Rate (APMHR): 195 bpm Target HR (85% APMHR): 166 bpm Recovery HR: 76 bpm BP Resting BP: 135.0/85.0 mmHg Max BP: 155.0/90.0 mmHg Recovery BP: 140.0/89.0 mmHg ECG Resting ECG: Nsr, cannot r/o old anterior SD Stress ECG Conclusion Pt had mild soa and mild head discmfort No cp No signifcant changes Unremarkable lexiscan stress Electronically signed by : Ciara Schumacher MD 03/23/2024 14:31:12
--- NOTE | 2024-03-23 07:51 | NM_ITS ---
APPROVED REPORT Exam: Nuclear Stress Test Indication: Chest pain, SOB, Syncope, Fatigue, HTN, DM, Family history Patient Location: Outpatient Stress Tech: Emerita Maldonado ND Tech:CeceliaALEXIA Osborn RT(R)(N) Ht: 6 ft 5 in Wt: 297 lbs HR: 71 bpm BP: 135/82 mmHg BSA: 2.65 m2 TID: 1.08 BMI: 35.2 History: Chest pain, SOB, Syncope, Fatigue, HTN, DM, Family history Procedure: Patient received 0.4 mg of intravenous Adenosine Lexiscan, resting heart rate 71 bpm, resting blood pressure 135/82 mmHg, with Lexiscan maximum heart rate achieved was 100 bpm which is % of the maximum predicted heart rate and blood pressure was 155/90 mmHg. With Lexiscan, patient denied any complaint of chest pain. Cardiac Stress and Resting SPECT Images: Cardiac Stress and Resting SPECT images were obtained using technetium 99m Myoview 32.0 mCi stress and 10.71 mCi at rest. Resting and stress imaging in supine and prone positions demonstrate no evidence of fixed or reversible perfusion defects. Gated imaging demonstrates normal global and regional LV systolic function. LVEF is calculated at 54%. Conclusion: No evidence of fixed or reversible perfusion defects. Gated imaging demonstrates normal global and regional LV systolic function. LVEF is calculated at 54%. Electronically signed by : Ciara Schumacher MD 03/23/2024 14:33:14
--- NOTE | 2024-03-23 07:51 | CA_ITS ---
APPROVED REPORT EXAM: Comprehensive 2D, Doppler, and color-flow Echocardiogram Pricing Analyst: Maki Pimentel RVT Ht: 6 ft 4 in Wt: 282lbs BSA: 2.56 BP: 134/93 mmHg Indications: CP,ABN EKG,TACHYCARDIA,DM,SCHIZOPHRENIA 2D Dimensions LA Volume 43.80 mL LA Volume Index 17.04 mL/m2 (M/F) 16-34 M-Mode Dimensions RVDd 2.54 cm (0.9-2.6) LA Diam 4.18 cm (1.9-4.0) LVDd 5.16 cm (3.5-5.7) LVDs 3.34 cm (3.5-5.7) IVSd 0.68 cm (0.6-1.1) PWd 0.60 cm (0.6-1.1) EF (Teich) 64.30% FS 35.30% EDV (Teich) 127.20 mL TAPSE 3.41 (<1.7) ESV (Teich) 45.40 mL LV Diastology E Decel Time 193 (160-240 msec) E/A Ratio 2.0 Aortic Valve PAMELA Index 1.21 cm2/m2 AoV Peak Markus. 145.0 (50-130 cm/s) AO Peak GR. 8.40 mmHg AO Mean GR. 4.20 (<5 mmHg) AO VTI 26.3 (18-25 cm) PAMELA (VTI) 3.17 (2.5-4.5 cm2) Mitral Valve MV E Max Markus. 96.0 (40-130 cm/s) MV A Velocity 48.0 (40-130 cm/s) E/A Ratio 2.01 MV PHT 57.0 ms Pulmonary Valve PV Peak Velocity 95.0 (50-150 cm/s) Tricuspid Valve TR P. Velocity 271.00 cm/s RAP Estimate 10.00 mmHg RVSP 39.30 mmHg Left Ventricle The left ventricle is normal size. The left ventricular systolic function is normal. The left ventricular ejection fraction is within the normal range. There is normal left ventricular wall thickness. There is normal LV segmental wall motion. The left ventricular diastolic function is normal. LVEF is 55%. Right Ventricle Right ventricle is mildly dilated. The right ventricular systolic function is normal. Atria The left atrium size is normal. The right atrium size is normal. There is no Doppler evidence of interatrial shunt. Aortic Valve The aortic valve opens well. There is no aortic valvular stenosis. No aortic regurgitation is present. Mitral Valve The mitral valve is normal in structure. No evidence of mitral valve stenosis. There is no mitral valve regurgitation noted. Tricuspid Valve The tricuspid valve leaflets are thin and pliable. Trace tricuspid regurgitation. There is insufficient TR jet to estimate RVSP. Pulmonic Valve The pulmonary valve is normal in structure. Trace pulmonic regurgitation. Great Vessels The aortic root is normal in size. The ascending aorta is normal in size. IVC is normal in size and collapses >50% with inspiration. Pericardium There is no pericardial effusion. Other Information Study Quality: Fair Conclusion Normal LV systolic function. Mild RV dilation with normal RV function. No significant valvular stenosis or regurgitation. In the setting of young age and mildly dilated RV, further evaluation is recommended with limited TTE with agitated saline administration (bubble study) to evaluate for interatrial shunt, as well as cardiac MRI ([facility] protocol). Electronically signed by : Ciara Schumacher MD 03/23/2024 12:29:27
[2024-03-23] MEDS: ISOTOPE MYOVIEW (PER STUDY) 1 DOSE IV (10:41)
[2024-03-23] MEDS: REGADENOSON 0.4MG/5ML SYRINGE 0.4 MG IV (10:41)
[2024-03-23] MEDS: SODIUM CHLORIDE 0.9% 10ML SYR (RAD ONLY) 10 ML IV ×2 (10:41)
== END 2024-03-23 23:59 | disposition home or self-care (01) ==
LOC: RAD 07:51
PROVIDERS: PCP Family Medicine; Visit Provider Physician Assistant
DX: R07.89 Other chest pain (principal); R06.00 Dyspnea, unspecified
CPT/HCPCS: 78452; 93017; 93018; 93306; A9502; J2785

== ENCOUNTER → 2024-04-05 07:54 | Day surgery (SDC) | payer OTHER, SELFPAY ==
[2024-04-04 10:53] VITALS: BMI 32.5
--- NOTE | 2024-04-05 08:15 | ECG_ITS ---
APPROVED REPORT Exam: Resting ECG HR:73 bpm ECG Measurements Heart Rate 73 AXES IL 165 P 10 QRSd 92 QRS 3 QT 358 T 5 QTc 384 Conclusion SINUS RHYTHM NORMAL ECG UNCONFIRMED REPORT Electronically signed by : Momo Spence MD 04/07/2024 14:14:23
[2024-04-05 08:17] VITALS: BP 98/75; PULSE 74; RESP 18; TEMP 36.1; O2SAT 99
[2024-04-05 08:58] LABS: Basophils # 0.2 K/mm3 (0-0.2); Basophils % 2.4 % (0.1-2.0); Eosinophils # 0.1 K/mm3 (0.0-0.4); Eosinophils % 1.2 % (0.1-12.0); Hematocrit 49.3 % (42.0-52.0); Hemoglobin 16.7 g/dL (14.1-18.0); Lymphocytes # 3.7 K/mm3 (0.7-4.5); Lymphocytes % 40.7 % (10-50); Mean Corpuscular HGB Conc 33.8 g/dL (31.8-35.4); Mean Corpuscular Hemoglobin 28.7 pg (27.0-31.2); Mean Corpuscular Volume 84.8 fl (80-94); Monocytes # 0.4 K/mm3 (0.1-1.0); Monocytes % 4.8 % (1.7-9.3); Neutrophils # 4.6 K/mm3 (1.8-7.8); Platelet Count 258 K/mm3 (142-424); Red Blood Count 5.82 M/mm3 (4.60-6.20); Red Cell Distribution Width 14.6 % (11.5-17.5); White Blood Count 9.1 K/mm3 (4.8-10.8)
[2024-04-05 09:05] LABS: Activated Partial Thrombo Time 29.8 seconds (22.8-30.6); Prothrombin Time 11.2 seconds (10.1-12.5)
[2024-04-05 09:08] LABS: Anion Gap 12.4 mEq/L (5-15); Blood Urea Nitrogen 15 mg/dl (9-20); Calcium 9.4 mg/dl (8.4-10.2); Carbon Dioxide 28 mmol/L (22.0-30.0); Chloride 103 mmol/L (98-107); Creatinine Clearance Estimated 221 mL/min (50-200); Estimated Glomerular Filt Rate 103 ml/min (>60); GFR (African American) 124 ML/MIN (>60); Glucose 165 mg/dl (74-100); Potassium 3.4 mmoL/L (3.5-5.1); Sodium 140 mmol/L (136-145)
--- NOTE | 2024-04-05 13:57 | SUR.PREOP ---
During preop assessment, pt answered yes to questions on suicide-risk assessment tool. After all questions were answered, pt stated to PARIS Palomo I tried to cut myself last week, but there aren't any french. When asking pt about alcohol use, pt stated I was on an alcohol binge last week, but not right now Per protocol, behavioral health consult was placed. Pt was already in a room in clear view of nursing, pt changed into a paper gown, environmental risk assessment performed and all items that can inflict harm were removed. Bonny Murray CMA was contacted regarding behavioral health consult and she stated that Irene Frost was out for the day and that she could possibly arrange for the pt to be admitted at [facility] if he wanted. This RN spoke to the pt and told him that staff could arrange this for him, he politely declined saying I know I can go there if I really need to, but right now I do not. This RN and Nick Murray RN spoke to Dr Schumacher regarding this situation. Dr Schumacher felt that it was necessary to cancel procedure today. Endy stated We can reschedule him once he gets any mental health issues resolved, and then worry about the WADE. At this point, PARIS Palomo and this RN went to PARIS Arguello- Risk Management to come up with some options for pt. Senior Leadership team stated to Contact Keri Brooks in behavioral health to arrange for an appt mac and to also notify his PCP. If BH is not available, consult [facility] to perform a risk assessment PARIS Arguello called Keri Brooks and she stated she can see the pt at any point today to just come into the office. Also, for nursing to come up with a safety plan with pt and pt's father before they are discharged. This RN called Audelia Valenzuela APRN to update her. She told this RN she will help anyway she can and to call her if any other issues arise . Dr Schumacher was told the plan by Aleja Cruz RN and all were in agreeance. At 0951 Dr Schumacher was at bedside and updated pt on cancelling the procedure and why we were cancelling. Pt verbalized understanding but did state If i would have known that this would happen by saying this, I would not have Aleja Cruz RN then spoke to pt and went over safety plan which was as follows: pt will go to see Keri Brooks today. Pt's father will stay with pt the next few days. Pt and pt's father both verbalized understanding that if his feelings of self-harm intensified, they will go straight to the emergency room to be evaluated. This RN went into the preop bay where pt was and removed PIV with catheter intact and reiterated safety plan, pt and pt's father verbalized understanding.
[2024-04-05 15:09] LABS: POC Glucose,Bedside 150 (70-110)
== END | disposition home or self-care (01) ==
PROVIDERS: PCP Family Medicine; Visit Provider Internal Medicine
DX: R07.9 Chest pain, unspecified (principal); F20.9 Schizophrenia, unspecified; E11.9 Type 2 diabetes mellitus without complications; R94.31 Abnormal electrocardiogram [ECG] [EKG]; Z79.899 Other long term (current) drug therapy
CPT/HCPCS: 80048; 82962; 85025; 85610; 85730; 93005; 93270; 93312; 93319

== ENCOUNTER 2024-04-14 10:11 | Outpatient (CLI) | payer OTHER, SELFPAY ==
--- NOTE | 2024-04-14 10:12 | MR_ITS ---
APPROVED REPORT [employer]: CLINICAL INDICATION RV dilation on TTE. Evaluate for ARVC. TECHNIQUE Image Acquisition: Cardiac magnetic resonance (CMR) was performed on Siemens Espree MRI 1.5T scanner. Software platform sequences were performed using the Siemens Tracked.com MR B19 platform. A set of three-plane, low-resolution, large leynf-hj-ybmh localizers were initially acquired. Then axial, coronal, sagittal TrueFISP, as well as axial HASTE images, were obtained. These were followed by gated TrueFISP breathold cinematic sequences obtained in the short axis with 8 mm slices and 2 mm gaps, 2-chamber (vertical long axis), 3-chamber, 4-chamber (horizontal long axis). A bolus of contrast was injected intravenously with first-pass sequences obtained in the short axis and four-chamber planes. After approximately 10 minutes, a TI flexographic press plate setter sequence was performed to determine the optimal TI time. Using the optimized TI time, delayed contrast enhancement segmented inversion???recovery TurboFLASH sequences were obtained in the short axis, 2-chamber, 3-chamber, and 4-chamber projections. 2D-velocity phase mapping was performed. Functional parameters were calculated by offline analysis on an independent workstation ([employer] Se[employer] Imaging Platform, [employer]). Contrast: ProHance??? (Gadoteridol) FINDINGS MORPHOLOGY AND FUNCTION Left ventricle: The left ventricle is normal in size. The indexed left ventricular end-diastolic volume (LVEDVi) is 57 ml/m2 (reference range 57-105 ml/m2 in males, 56-96 ml/m2 in females). Normal left ventricular systolic function is present. There is normal left ventricular wall thickness. There are no regional wall motion abnormalities noted. LVEF is calculated at 62.0% (reference range 57-77%). Right ventricle: The right ventricle is normal in size. The indexed right ventricular end-diastolic volume (RVEDVi) is 56 ml/m2 (reference range 61-121 ml/m2 in males, 48-112 ml/m2 in females). Low-normal right ventricular systolic function is present. RVEF is calculated at 49.0% (reference range 52-72% in males, 51-71% in females). Atria: The left atrium is normal in size. The maximum indexed left atrial volume is 25 ml/m2 (reference range 26-52 ml/m2 in males, 27-53 ml/m2 in females). The right atrium is normal in size. The maximum indexed right atrial volume is 18 ml/m2 (reference range 18-90 ml/m2). Aorta: The diameter of the aortic annulus is normal, measuring 24 mm (coronal view reference range 21-30 mm in males, 19-27 mm in females). The diameter of the aortic sinus is normal, measuring 26 mm (coronal view reference range 25-42 mm in males, 24-36 mm in females). The diameter of the sinotubular junction is normal, measuring 21 mm (coronal view reference range 18-32 mm in males, 18-28 mm in females). The diameters of the ascending and descending thoracic aorta are normal. Main pulmonary artery: The main pulmonary artery diameter is normal. Pericardium: The pericardial thickness is normal. The pericardial thickness measures 1.0 mm (normal < 4.0 mm). There is no pericardial effusion. VALVES The valvular morphologies in the visualized sequences appear normal. There is no significant valvular stenosis or regurgitation of the mitral, aortic, tricuspid, or pulmonic valve noted visually. Systolic anterior motion of the mitral valve is not visualized. Ratio of pulmonary to systemic flow, Qp:Qs ratio = 1.2 (normal < or = 1.2, hemodynamically significant shunt > 1.5), demonstrating no evidence of hemodynamically significant shunt. TISSUE CHARACTERIZATION Resting Perfusion: Normal myocardial blood flow at rest. No evidence of resting hypoperfusion. Myocardial Fibrosis and/or edema: Normal gadolinium kinetics are present. No evidence of late gadolinium enhancement is noted, consistent with absence of myocardial scarring, infarction, or necrosis. T2-weighted imaging demonstrates no evidence of myocardial edema or inflammation. OTHER No other significant findings are noted. However, this exam is focused on the cardiac structure and function. IMPRESSION Normal LV size with normal LV systolic function. LVEDVi= 57 ml/m2 and LVEF= 62.0%. Normal RV size with low-normal RV systolic function. RVEDVi= 56 ml/m2 and RVEF= 49.0%. No atrial enlargement. No CMR evidence of myocardial scarring, infarction, or necrosis. No evidence of myocardial edema or inflammation. Perfusion analysis demonstrates normal blood flow at rest with no evidence of resting hypoperfusion. Ratio of pulmonary to systemic flow, Qp:Qs ratio = 1.2 (normal < or = 1.2, hemodynamically significant shunt > 1.5), demonstrating no evidence of hemodynamically significant shunt. Overall, this CMR demonstrates normal biventricular size and systolic function. No CMR evidence of ARVC. QP:QS ratio is at the upper normal limit, indicating no evidence of hemodynamically significant shunt. COMPARISON None CRITICAL RESULT None COMMUNICATION Per this written report The findings of this cardiac MR were reviewed, reported, and signed by Sina Schumacher MD ([employer]). Conclusion Electronically signed by : Ciara Schumacher MD 04/18/2024 00:32:24
[2024-04-14] MEDS: SODIUM CHLORIDE 0.9% 10ML SYR (RAD ONLY) 10 ML IV (11:46)
[2024-04-14] MEDS: GADOTERIDOL INJ 20ML SYRINGE 20 ML IV (11:46)
[2024-04-14] MEDS: GADOTERIDOL INJ 10ML SYRINGE 8 ML IV (11:46)
[2024-04-14] MEDS: 0.9 % SODIUM CHLORIDE 50 ML VIAL IV (11:46)
== END 2024-04-14 23:59 | disposition home or self-care (01) ==
LOC: RAD 10:12
PROVIDERS: PCP Family Medicine; Visit Provider Physician Assistant
DX: R93.1 Abnormal findings on diagnostic imaging of heart and coronary circulation (principal); R07.89 Other chest pain; R55 Syncope and collapse; I10 Essential (primary) hypertension
CPT/HCPCS: 75561; A9576

== ENCOUNTER 2024-05-22 20:50 | Emergency (ER) | payer OTHER, SELFPAY ==
[2024-05-22 20:51] VITALS: BP 108/73; PULSE 83; RESP 16; TEMP 36.6; O2SAT 96; BMI 47.9
--- NOTE | 2024-05-22 21:12 | CT_ITS ---
PROCEDURE INFORMATION: Exam: CT Lumbar Spine Without Contrast Exam date and time: 05/22/2024 9:45 PM Age: 23 years old Clinical indication: Other: Lumbosacral pain TECHNIQUE: Imaging protocol: Computed tomography of the lumbar spine without contrast. Radiation optimization: All CT scans at this facility use at least one of these dose optimization techniques: automated exposure control; mA and/or kV adjustment per patient size (includes targeted exams where dose is matched to clinical indication); or iterative reconstruction. COMPARISON: CT ABDOMEN PELVIS W CON 03/07/2024 8:18 AM FINDINGS: Bones/joints: No acute fracture. Normal alignment. L1/2: No disc herniation, central canal or neural foraminal narrowing. L2/3: No disc herniation, central canal or neural foraminal narrowing. L3/4: No disc herniation. Facet/ligamentum flavum hypertrophy. Mild central canal narrowing. No neural foraminal narrowing. L4/5: Mild broad-based disc bulge. Facet/ligamentum flavum hypertrophy. [id number] central canal narrowing. Mild bilateral neural foraminal narrowing. L5/S1: Broad-based marginal osteophytosis along adjoining endplates. Moderate to moderately severe central canal narrowing. Moderate bilateral neural foraminal narrowing. Soft tissues: Unremarkable. IMPRESSION: Multilevel central canal and neural foraminal narrowing from combination of facet/ligamentum flavum hypertrophy and at L5/S1 from broad-base marginal osteophytosis. Consider nonurgent MRI scan detailed imaging characterization.
--- NOTE | 2024-05-22 21:14 | HMH.EDGENADL ---
Discharge Plan Disposition Patient Disposition: Home, Self-Care Condition: Good Prescriptions Prescriptions: New naproxen 500 mg tablet 500 mg PO BID Qty: 20 0RF prednisone 20 mg tablet 40 mg PO DAILY 5 Days Qty: 10 0RF No Action lisinopril-hydrochlorothiazide 20-12.5 mg tablet 1 tab PO DAILY Qty: 90 0RF Farxiga 10 mg tablet 10 mg PO DAILY Qty: 90 0RF oxcarbazepine [Trileptal] 300 mg tablet 450 mg PO BID Qty: 90 1RF albuterol sulfate [Proventil HFA] 90 mcg/actuation HFA aerosol inhaler 2 puff inhalation Q6H Qty: 6.7 0RF Auvelity 45-105 mg tablet, IR and ER, biphasic 1 tab PO BID Qty: 60 2RF Vraylar 4.5 mg capsule 4.5 mg PO DAILY Qty: 30 2RF bisoprolol fumarate 5 mg tablet 5 mg PO DAILY Qty: 30 2RF omeprazole 20 mg capsule,delayed release(DR/EC) 20 mg PO DAILY Qty: 30 2RF Linzess 72 mcg capsule 72 mcg PO DAILY Qty: 90 3RF trazodone 50 mg tablet See Rx Instructions .ROUTE .COMPLEX Qty: 30 0RF Dose Instruction: TAKE 1 TABLET BY MOUTH EVERY DAY AT BEDTIME NEEDED FOR SLEEP Rx Instructions: TAKE 1 TABLET BY MOUTH EVERY DAY AT BEDTIME NEEDED FOR SLEEP lorazepam [Ativan] 1 mg tablet 1 mg PO ONCE PRN (Reason: anxiety) Qty: 1 0RF Rx Instructions: Take one hour prior to MRI procedure. duloxetine 60 mg capsule,delayed release(DR/EC) 60 mg PO DAILY Qty: 30 3RF Referrals Follow up/Referrals: Audelia Valenzuela APRN [Primary Care Provider] - See instructions Activity Restrictions/Add. Instructions Additional Instructions/Restrictions: You were evaluated in the emergency department today. Please follow-up closely with your primary care provider over the next 3 days. Please supervisor picking crew your prescriptions at the pharmacy and take them as needed for symptoms. Please also take Tylenol every 4-6 hours at home as needed for pain. Return to the emergency department right away for new or worsening symptoms, such as significant worsening of pain, urinary incontinence, fecal incontinence, inability to walk, or numbness and tingling in your groin/rectal region. Clinical Impressions Clinical Impression: Low back pain with left-sided sciatica Stand Alone Forms Stand Alone Forms: Work/School Release Instructions Patient Instructions: DI for Low Back Pain, DI for Back Pain With Sciatica Print Language Print Language: Hungarian Discharge ED Provider: Deborah Parikh General Adult HPI General Chief complaint: Back Pain/Injury Stated complaint: back pain, abd pain, MURPHY Time Seen by Provider: 05/22/24 21:00 History of Present Illness HPI narrative: This patient is a 23-year-old male who reports a history of extensive psychiatric issues and also has history of hypertension, GERD, obesity presenting to the emergency department for evaluation with concern for low back pain. He states it has been going on for months with no notable significant injury. He notes he did injure it remotely in the past a very long time ago. He states it is mostly in his lumbosacral region but sometimes goes down his left lower extremity. He came in today because the pain seems to be a little bit worse. He has tried stretching at home but has tried no [id number] medications. He also notes experiencing some nausea, vomiting, and diarrhea as of late. No saddle anesthesia, urinary incontinence, urinary retention, fecal incontinence, or other concerns. He does note some tingling in his bilateral feet. He is ambulatory and walked in here today. He has had no fevers or history of IV drug use. Related Data Previous Rx's ?Medication ?Instructions ?Recorded albuterol sulfate 90 mcg/actuation 2 puff inhalation Q6H #6.7 grams 03/29/23 aerosol inhaler (Proventil HFA) dapagliflozin propanediol 10 mg 10 mg PO DAILY #90 tabs 02/14/24 tablet (Farxiga) lisinopril 20 1 tab PO DAILY #90 tabs 02/14/24 mg-hydrochlorothiazide 12.5 mg tablet bisoprolol fumarate 5 mg tablet 5 mg PO DAILY #30 tabs 03/02/24 omeprazole 20 mg capsule,delayed 20 mg PO DAILY #30 caps 03/02/24 release trazodone 50 mg tablet See Rx Instructions .Route 03/02/24 .COMPLEX #30 tabs cariprazine 4.5 mg capsule 4.5 mg PO DAILY #30 caps 03/15/24 (Vraylar) dextromethorphan IR 45 1 tab PO BID #60 tabs 03/15/24 mg-bupropion ER 105 mg biphasic tablet (Auvelity) lorazepam 1 mg tablet (Ativan) 1 mg PO ONCE PRN anxiety #1 tab 03/23/24 linaclotide 72 mcg capsule 72 mcg PO DAILY #90 caps 04/12/24 (Linzess) oxcarbazepine 300 mg tablet 450 mg (1.5 x 300 mg) PO BID #90 04/12/24 (Trileptal) tabs duloxetine 60 mg capsule,delayed 60 mg PO DAILY #30 caps 05/05/24 release naproxen 500 mg tablet 500 mg PO BID #20 tabs 05/22/24 prednisone 20 mg tablet 40 mg (2 x 20 mg) PO DAILY 5 days 05/22/24 #10 tabs Allergies Allergy/AdvReac Type Severity Reaction Status Date / Time citalopram AdvReac Intermediate Vomiting Verified 04/18/24 13:59 [facility] Disclaimer: The information contained in this section may have been updated after the patient was seen, as this information can be updated by other users. Medical History Diabetes Dyspnea Major depressive disorder Bronchitis Sinusitis Insomnia Schizophrenia Dizziness SOB (shortness of breath) GERD with esophagitis Surgical History History of wisdom tooth extraction Family History Other Diabetes Heart attack Substance abuse Social History Smoking Status: Current every day smoker tobacco type: e-cigarettes alcohol intake: current alcohol intake frequency: other substance use type: denies use and marijuana current occupational status: unemployed Travel in the last 8 weeks: None household members: family housing: house number of children: 0 caffeine: Yes Have you lived/traveled outside [place] in past 30 days?: No Contact w/someone who lives/traveled outside US past 30 days?: No Exposure to someone with infectious disease in past 14 days?: No Do you have a fever (greater than 100.4 F or 38 C)?: No Have you tested positive for COVID-19: No Exposed to someone with COVID-19 in past 14 days?: No Do you have a sore throat?: No Do you have a cough?: No Do you have any weakness?: No Do you have any diarrhea?: No Are you experiencing any unusual bleeding?: No Do you have any muscle aches/pain?: Yes Do you have any abdominal pain?: Yes Are you experiencing loss of taste or smell?: No Other Medical History Have you received the Flu Vaccine for this season: No Have you received the Pneumonia Vaccine: No ROS Obtained: Yes All systems reviewed & no additional complaints except as documented Physical Exam General General appearance: alert, in no apparent distress and obese Head Head exam: atraumatic and normocephalic Eye Eye exam: Present normal appearance, PERRL and EOMI ENT ENT exam: Present normal exam, normal oropharynx, mucous membranes moist and normal external ear exam Neck Neck exam: Present normal inspection, full ROM and trachea midline; Absent tenderness Chest Chest inspection: Present normal inspection and symmetric chest wall rise; Absent tenderness Respiratory Respiratory exam: Present normal lung sounds bilaterally; Absent respiratory distress, wheezes, stridor or accessory muscle use Cardiovascular Cardiovascular exam: Present regular rate and normal rhythm Abdominal Exam Abdominal exam: Present soft; Absent distention, tenderness or guarding Extremities Exam Extremities exam: Present normal inspection, full ROM and normal capillary refill; Absent tenderness or edema Back Exam Back exam: Present full ROM and tenderness Back 1 view image: 1. Tenderness palpation with muscle hypertonicity 2. Tenderness to palpation without step-off or deformity Neurological Exam Neurological exam: Present alert, oriented X3, CN II-XII intact and normal gait; Absent motor sensory deficit Psychiatric Psychiatric exam: Present flat affect Skin Skin exam: Present warm and dry Medical Decision Making Medical Records Medical records reviewed: Yes I reviewed the patient's medical records. Screening: Per USPSTF and CDC recommendations, given the prevalence of disease in our region, it is our hospital?s policy to screen for HIV and viral Hepatitis for all patients aged 18 and over and those with ongoing risk factors. [place] Inquiry Pt receiving controlled substance: No Vital Signs: 05/22/24 20:51 05/22/24 21:30 05/22/24 22:01 Temperature 97.9 F Temperature Source Oral Pulse Rate 71 65 Pulse Rate [Right Radial] 83 Respiratory Rate 16 Blood Pressure 121/83 116/75 Blood Pressure [Right Arm] 108/73 L Blood Pressure Mean [Right Arm] 84 Blood Pressure Source [Right Arm] Automatic Cuff Blood Pressure Position [Right Arm] Supine 02 Sat by Pulse Oximetry 96 96 96 Oxygen Delivery Method Room Air Lab Data Lab results reviewed: Yes I reviewed the patient's lab results. Lab Results 05/22/24 21:24: WBC 11.4 H, RBC 5.46, Hgb 15.6, Hct 46.0, MCV 84.2, MCH 28.6, MCHC 33.9, RDW 13.4, Plt Count 265, MPV 9.4, Neut % (Auto) 46.1, Lymph % (Auto) 47.8, Trigg % (Auto) 4.4, Eos % (Auto) 1.1, Baso % (Auto) 0.4, Neut # (Auto) 5.3, Lymph # (Auto) 5.4 H, Trigg # (Auto) 0.5, Eos # (Auto) 0.1, Baso # (Auto) 0.1, Sodium 136, Potassium 3.7, Chloride 101, Carbon Dioxide 31 H, Anion Gap 7.7, BUN 20, Creatinine 0.70, Estimated Creat Clear 146, Estimated GFR 137, Est GFR ( Amer) 166, Glucose 155 H, Calcium 9.5, Total Bilirubin 0.4, AST 27, ALT 25, Alkaline Phosphatase 118, Total Protein 7.4, Albumin 4.4, Globulin 3.0, Albumin/Globulin Ratio 1.5, Lipase 158 05/22/24 22:39: Urine Color Yellow, Urine Appearance Clear, Urine pH 6.0, Ur Specific [place] >= 1.030, Urine Protein Negative, Urine Glucose (UA) 2+, Urine Ketones Trace, Urine Blood Negative, Urine Nitrate Negative, Urine Bilirubin Negative, Urine Urobilinogen 0.2, Ur Leukocyte Esterase Negative, Urine RBC None, Urine WBC None, Ur Squamous Epith Cells 3-5, Urine Bacteria Trace 05/22/24 21:24 05/22/24 21:24 Orders (Tests/Meds): ED MEDICATIONS Discontinued Medications Generic Name Dose Route Start Last Admin Trade Name Freq PRN Reason Stop Dose Admin Acetaminophen 1,000 mg 05/22/24 21:12 05/22/24 21:28 Acetaminophen 500mg Tab PO 05/22/24 21:13 1,000 mg ONCE ONE Administration Ketorolac Tromethamine 15 mg 05/22/24 21:12 05/22/24 21:28 Ketorolac 30mg/Ml Vial IV 05/22/24 21:13 15 mg ONCE ONE Administration Lidocaine 1 each 05/22/24 21:12 05/22/24 21:28 Lidocaine 5% Transdermal Patch TP 05/22/24 21:13 1 each ONCE ONE Administration Methocarbamol 500 mg 05/22/24 21:13 05/22/24 21:28 Methocarbamol 500mg Tablet PO 05/22/24 21:14 500 mg ONCE ONE Administration ORDERS Category Date Time Status CT lumbar spine wo con Stat Cat Scan 05/22/24 21:12 Taken Complete Blood Count Auto Diff Stat Lab 05/22/24 21:24 Completed Comprehensive Metabolic Panel Stat Lab 05/22/24 21:24 Completed Lipase Stat Lab 05/22/24 21:24 Completed UA [Urinalysis and Microscopic] Stat Lab 05/22/24 22:39 Completed Medical Decision Narrative: In summary, this patient is a 23-year-old male presenting to the Emergency Department for evaluation of low back pain symptoms radiating down his left leg. Differential diagnoses considered include but are not limited to musculoskeletal strain/pain, disc herniation, lumbar radiculopathy, sciatica, spinal cord compression. Ruling out the most morbid conditions drove assessment. It should be noted patient's history includes obesity, hypertension, GERD, mental health history which may or may not be at goal therapy. This complicates all aspects of care by increasing patient's risk for morbidity. I reviewed patient's past medical records and noted previous behavioral health evaluations and diagnosis of schizophrenia and insomnia as well as major depressive disorder. On exam, the patient has flat affect. He has some lumbosacral tenderness to palpation as well as left paraspinal tenderness to palpation of the lumbar spine. He is neurologically intact in his lower extremities and was ambulatory into the emergency department. He lacks fevers, history of IV drug use, or other alarm history/findings concerning for spinal cord compression/cauda equina syndrome. Given this, I do not feel that emergent MRI is indicated. Workup included CBC, CMP, lipase, urinalysis, CT lumbar spine without IV contrast. He is given oral Tylenol, IV Toradol, oral Robaxin, and topical Lidoderm patch for symptomatic improvement. I independently interpreted CT scan prior to the radiologist read and noted bulging disc at L5/S1 with some osteophyte formation but no obvious acute fracture. Please see their read for final interpretation. On reassessment, patient is feeling better. He remains neurologically intact in his lower extremities and is ambulatory with no concern for cauda equina syndrome, spinal cord compression based on history or exam. Given this, I feel it is appropriate for discharge with close outpatient follow-up for further evaluation and management, as I advised him that he may benefit from outpatient MRI if he continues to have pain. He was given prescriptions for naproxen and prednisone for symptomatic improvement as well as instructions for close follow-up. Strict return precautions were given at time of discharge Critical Care Critical Care Time Critical Care Time: No
[2024-05-22] MEDS: LIDOCAINE 5% TRANSDERMAL PATCH 1 EACH TP (21:28)
[2024-05-22] MEDS: ACETAMINOPHEN 500MG TAB 1000 MG PO (21:28)
[2024-05-22] MEDS: METHOCARBAMOL 500MG TABLET 500 MG PO (21:28)
[2024-05-22] MEDS: KETOROLAC 30MG/ML VIAL 15 MG IV (21:28)
[2024-05-22 21:30] VITALS: BP 121/83; PULSE 71; O2SAT 96
[2024-05-22 21:39] LABS: Albumin Level 4.4 g/dl (3.5-5.0); Basophils # 0.1 K/mm3 (0-0.2); Basophils % 0.4 % (0.1-2.0); Chloride 101 mmol/L (98-107); Eosinophils # 0.1 K/mm3 (0.0-0.4); Eosinophils % 1.1 % (0.1-12.0); Hemoglobin 15.6 g/dL (14.1-18.0); Lymphocytes # 5.4 K/mm3 (0.7-4.5); Lymphocytes % 47.8 % (10-50); Mean Corpuscular HGB Conc 33.9 g/dL (31.8-35.4); Mean Corpuscular Hemoglobin 28.6 pg (27.0-31.2); Mean Corpuscular Volume 84.2 fl (80-94); Mean Platelet Volume 9.4 fl (7.4-10.4); Monocytes # 0.5 K/mm3 (0.1-1.0); Monocytes % 4.4 % (1.7-9.3); Neutrophils # 5.3 K/mm3 (1.8-7.8); Neutrophils % 46.1 % (37.0-80.0); Platelet Count 265 K/mm3 (142-424); Potassium 3.7 mmoL/L (3.5-5.1); Red Blood Count 5.46 M/mm3 (4.60-6.20); Red Cell Distribution Width 13.4 % (11.5-17.5); Sodium 136 mmol/L (136-145); White Blood Count 11.4 K/mm3 (4.8-10.8)
[2024-05-22 21:42] LABS: Alanine Aminotransferase 25 U/L (12-78); Albumin/Globulin Ratio 1.5 (1.1-1.8); Alkaline Phosphatase 118 U/L (38-126); Anion Gap 7.7 mEq/L (5-15); Aspartate Amino Transferase 27 U/L (17-59); Bilirubin,Total 0.4 mg/dl (0.2-1.3); Blood Urea Nitrogen 20 mg/dl (9-20); Carbon Dioxide 31 mmol/L (22.0-30.0); Creatinine Clearance Estimated 146 mL/min (50-200); Estimated Glomerular Filt Rate 137 ml/min (>60); GFR (African American) 166 ML/MIN (>60); Lipase 158 U/L (23-300); Total Protein,Serum 7.4 g/dl (6.3-8.2)
[2024-05-22 21:43] LABS: Calcium 9.5 mg/dl (8.4-10.2); Glucose 155 mg/dl (74-100)
[2024-05-22 22:01] VITALS: BP 116/75; PULSE 65; O2SAT 96
[2024-05-22 22:46] LABS: Microscopic, Urine URINE MICROSCOPIC (MICROSCOPIC)
[2024-05-22 22:54] LABS: Appearance,Urine CLEAR (Clear); Bilirubin,Urine Negative (Negative); Blood, Urine Negative (Negative); Color,Urine YELLOW (Yellow); Glucose,Urine (UA) 2+ (Negative); Ketones,Urine TRACE (Negative); Leukocyte Esterase,Urine Negative (Negative); Nitrate,Urine Negative (Negative); Protein,Urine Negative (Negative); Specific Gravity, Urine >= 1.030 (1.005-1.030); Urobilinogen,Urine 0.2 EU/dl (0.2)
[2024-05-22 23:21] LABS: Bacteria,Urine Trace /lpf
[2024-05-22 23:53] VITALS: BP 116/75; PULSE 90; RESP 16; TEMP 36.6; O2SAT 97
--- NOTE | 2024-05-22 23:58 | PC.NURSE ---
IV removed. Catheter tip intact. Bleeding controlled.
== END 2024-05-22 23:59 | disposition home or self-care (01) ==
PROVIDERS: Emergency Provider Emergency Medicine; PCP Family Medicine
DX: M54.42 Lumbago with sciatica, left side (principal); M79.662 Pain in left lower leg; R11.2 Nausea with vomiting, unspecified; R19.7 Diarrhea, unspecified; R20.0 Anesthesia of skin
CPT/HCPCS: 72131; 80053; 81001; 83690; 85025; 96374; 99284; J1885

== ENCOUNTER 2024-06-09 15:30 | Outpatient (CLI) | payer OTHER, SELFPAY ==
[2024-06-09 18:03] LABS: Creatinine,Urine Random 127 mg/dL (Not Estab.)
[2024-06-09 18:13] LABS: Microalbumin < 6.000 mg/L (0-16.7)
[2024-06-09 19:13] LABS: Chol/HDL Ratio 5.1 (1-3.5); Cholesterol 199 mg/dl (140-200); HDL Cholesterol 39 mg/dl (40-60); Triglycerides 159 mg/dl (30-150); VLDL Cholesterol 32 mg/dL (0-40)
[2024-06-09 19:24] LABS: Direct LDL Cholesterol 127.53 mg/dL (100-129)
[2024-06-09 20:04] LABS: Vitamin B12 344 pg/mL (239-931)
== END 2024-06-09 23:59 | disposition home or self-care (01) ==
LOC: LAB.DROPOF 06-10 08:43
PROVIDERS: PCP Family Medicine; Visit Provider Family Medicine
DX: I10 Essential (primary) hypertension (principal); E11.9 Type 2 diabetes mellitus without complications; E66.01 Morbid (severe) obesity due to excess calories; Z68.38 Body mass index [BMI] 38.0-38.9, adult; Z79.84 Long term (current) use of oral hypoglycemic drugs
CPT/HCPCS: 80061; 82043; 82570; 82607; 83036

== ENCOUNTER 2024-06-30 15:35 | Outpatient (CLI) | payer OTHER, SELFPAY ==
[2024-06-30 16:56] LABS: Blood Urea Nitrogen 12 mg/dl (9-20); Estimated Glomerular Filt Rate 137 ml/min (>60); GFR (African American) 166 ML/MIN (>60)
== END 2024-06-30 23:59 | disposition home or self-care (01) ==
PROVIDERS: PCP Family Medicine; Visit Provider Family Medicine
DX: Z01.812 Encounter for preprocedural laboratory examination (principal)
CPT/HCPCS: 36415; 82565; 84520

== ENCOUNTER 2024-07-12 13:44 | Outpatient (CLI) | payer OTHER, SELFPAY ==
--- NOTE | 2024-07-12 13:45 | MR_ITS ---
FINAL REPORT CLINICAL HISTORY: back pain, NKI COMPARISON: None FINDINGS: MRI THORACIC SPINE, WITHOUT AND WITH CONTRAST TECHNIQUE: Multiplanar MR without and with contrast administration. FINDINGS: No acute fracture is present. Alignment is normal. The marrow signal pattern is normal. Thoracic spinal cord shows normal signal and contour. At the T4-5 level, there is a small far lateral disc protrusion which contacts the left nerve root at that level. At the T5-6 level, there is a small right paracentral protrusion without evidence of cord contact. At the T6-7 level there is a moderate right paracentral disc extrusion, which contacts the cord. The remainder of the thoracic disc levels are unremarkable. There is no abnormal enhancement. IMPRESSION: Degenerative changes in the mid thoracic spine as described above, most prominent at the T6-7 level. Reviewed, Interpreted and Dictated by Rosalinda Dominique MD Transcribed by Zandra Monique Authenticated and [facility]
[2024-07-12] MEDS: GADOTERIDOL INJ 10ML SYRINGE 7 ML IV (14:52)
[2024-07-12] MEDS: GADOTERIDOL INJ 20ML SYRINGE 20 ML IV (14:52)
== END 2024-07-12 23:59 | disposition home or self-care (01) ==
LOC: RAD 13:45
PROVIDERS: PCP Family Medicine; Visit Provider Family Medicine
DX: M48.061 Spinal stenosis, lumbar region without neurogenic claudication (principal); M54.42 Lumbago with sciatica, left side
CPT/HCPCS: 72157; A9576

== ENCOUNTER 2024-08-26 17:40 | Emergency (ER) | payer OTHER, SELFPAY ==
[2024-08-26 17:48] VITALS: BP 126/96; PULSE 98; RESP 15; TEMP 36.6; O2SAT 97; BMI 35.5
--- NOTE | 2024-08-26 17:52 | CT_ITS ---
PROCEDURE INFORMATION: Exam: CT Cervical Spine Without Contrast Exam date and time: 08/26/2024 6:00 PM Age: 24 years old Clinical indication: Neck pain TECHNIQUE: Imaging protocol: Computed tomography of the cervical spine without contrast. Radiation optimization: All CT scans at this facility use at least one of these dose optimization techniques: automated exposure control; mA and/or kV adjustment per patient size (includes targeted exams where dose is matched to clinical indication); or iterative reconstruction. COMPARISON: MR THORACIC SPINE WO/W CON 07/12/2024 1:51 PM FINDINGS: Bones: No acute fracture. Normal alignment. No significant disc bulge or herniation. No severe spinal canal stenosis. No significant neural foraminal narrowing. Lungs: Lung apices are normal. Soft tissues: Unremarkable. IMPRESSION: No acute findings.
--- NOTE | 2024-08-26 17:54 | ED_ITS ---
Discharge Plan Disposition Patient Disposition: Home, Self-Care Prescriptions Prescriptions: No Action haloperidol 10 mg tablet 10 mg PO BID Qty: 60 2RF albuterol sulfate [Proventil HFA] 90 mcg/actuation HFA aerosol inhaler 2 puff inhalation Q6H Qty: 6.7 0RF omeprazole 20 mg capsule,delayed release(DR/EC) 20 mg PO DAILY Qty: 30 2RF Farxiga 10 mg tablet 10 mg PO DAILY Qty: 90 0RF duloxetine 60 mg capsule,delayed release(DR/EC) 60 mg PO DAILY Qty: 30 3RF lorazepam [Ativan] 1 mg tablet 1 mg PO DAILY Qty: 1 0RF bisoprolol fumarate 5 mg tablet 5 mg PO DAILY Qty: 30 2RF lisinopril-hydrochlorothiazide 20-12.5 mg tablet 1 tab PO DAILY Qty: 90 0RF benztropine 0.5 mg tablet 0.5 mg PO BID Qty: 60 2RF divalproex [Depakote] 500 mg tablet,delayed release (DR/EC) 500 mg PO BID Qty: 60 2RF Referrals Follow up/Referrals: Audelia Valenzuela APRN [Primary Care Provider] - See instructions Clinical Impressions Clinical Impression: Strain of neck muscle Instructions Patient Instructions: DI for Neck Pain Print Language Print Language: Syriac Discharge ED Provider: Miko Mendoza General Adult HPI <Nikole Feldman (ED)ABIEL - Last Filed: 08/26/24 19:18> General Chief complaint: Neck Pain/Injury Stated complaint: neck pain Time Seen by Provider: 08/26/24 17:44 Mode of Arrival: Ambulatory Source of Information: Patient Description of Symptoms (Recalled from ER Triage Doc. by RN): patient states he has had neck pain for one month that is causing him to have headaches. denies any injuries History of Present Illness HPI narrative: This is a 24-year-old male who presents to the ED today for complaint of neck pain for the past month. Patient states he has no fevers, no chills, no nausea or vomiting. No other symptoms. He has not taken any medications for the pain. He says that temperature change outside this seems to hurt his neck. He says moving does hurt. Related Data Previous Rx's ?Medication ?Instructions ?Recorded albuterol sulfate 90 mcg/actuation 2 puff inhalation Q6H #6.7 grams 03/29/23 aerosol inhaler (Proventil HFA) omeprazole 20 mg capsule,delayed 20 mg PO DAILY #30 caps 03/02/24 release duloxetine 60 mg capsule,delayed 60 mg PO DAILY #30 caps 05/05/24 release dapagliflozin propanediol 10 mg 10 mg PO DAILY #90 tabs 06/09/24 tablet (Farxiga) haloperidol 10 mg tablet 10 mg PO BID #60 tabs 06/27/24 lorazepam 1 mg tablet (Ativan) 1 mg PO DAILY #1 tab 07/04/24 bisoprolol fumarate 5 mg tablet 5 mg PO DAILY #30 tabs 07/24/24 lisinopril 20 1 tab PO DAILY #90 tabs 07/24/24 mg-hydrochlorothiazide 12.5 mg tablet benztropine 0.5 mg tablet 0.5 mg PO BID #60 tabs 08/16/24 divalproex 500 mg tablet,delayed 500 mg PO BID #60 tabs 08/16/24 release (Depakote) Allergies Allergy/AdvReac Type Severity Reaction Status Date / Time citalopram AdvReac Intermediate Vomiting Verified 07/31/24 15:00 PFS <Nikole Feldman (ED), CAR INSTALLATIONS SUPERVISOR - Last Filed: 08/26/24 19:18> PFS Disclaimer: The information contained in this section may have been updated after the patient was seen, as this information can be updated by other users. Medical History Diabetes Dyspnea Major depressive disorder Bronchitis Sinusitis Insomnia Schizophrenia Dizziness SOB (shortness of breath) GERD with esophagitis Surgical History History of wisdom tooth extraction Family History Other Diabetes Heart attack Substance abuse Social History Smoking Status: Never smoker alcohol intake: current alcohol intake frequency: other substance use type: denies use and marijuana current occupational status: unemployed Travel in the last 8 weeks: None household members: family housing: house number of children: 0 caffeine: Yes Have you lived/traveled outside US in past 30 days?: No Contact w/someone who lives/traveled outside US past 30 days?: No Exposure to someone with infectious disease in past 14 days?: No Do you have a fever (greater than 100.4 F or 38 C)?: No Have you tested positive for COVID-19: No Exposed to someone with COVID-19 in past 14 days?: No Do you have a sore throat?: No Do you have a cough?: No Do you have any weakness?: No Do you have any diarrhea?: No Are you experiencing any unusual bleeding?: No Do you have any muscle aches/pain?: Yes Do you have any abdominal pain?: No Are you experiencing loss of taste or smell?: No Other Medical History Have you received the Flu Vaccine for this season: No Have you received the Pneumonia Vaccine: No <Nikole Feldman (ED), CAR INSTALLATIONS SUPERVISOR - Last Filed: 08/26/24 19:18> ROS Obtained: Yes Systems reviewed as appropriate & no additional complaints except as documented Constitutional Constitutional: Reports as per HPI Physical Exam <Nikole Feldman (ED), CAR INSTALLATIONS SUPERVISOR - Last Filed: 08/26/24 19:18> General General appearance: alert and in no apparent distress Head Head exam: atraumatic and normocephalic Eye Eye exam: Present PERRL and EOMI ENT ENT exam: Present normal oropharynx and mucous membranes moist Neck Neck exam: Present normal inspection, full ROM and trachea midline Respiratory Respiratory exam: Present normal lung sounds bilaterally Cardiovascular Cardiovascular exam: Present regular rate, normal rhythm, normal heart sounds, +S1 and +S2 Extremities Exam Extremities exam: Present full ROM and normal capillary refill Neurological Exam Neurological exam: Present alert and oriented X3 Skin Skin exam: Present warm, dry and intact Medical Decision Making <Nikole Feldman (ED), CAR INSTALLATIONS SUPERVISOR - Last Filed: 08/26/24 19:18> Medical Records Screening: Per USPSTF and CDC recommendations, given the prevalence of disease in our region, it is our hospital?s policy to screen for HIV and viral Hepatitis for all patients aged 18 and over and those with ongoing risk factors. Haroon Inquiry Pt receiving controlled substance: No Haroon was queried for this patient: No Vital Signs: 08/26/24 17:48 08/26/24 19:12 Temperature 97.8 F 98.0 F Temperature Source Oral Oral Pulse Rate 99 H Pulse Rate [Right Radial] 98 H Respiratory Rate 15 16 Blood Pressure 126/76 Blood Pressure [Right Arm] 126/96 H Blood Pressure Mean [Right Arm] 106 Blood Pressure Source Automatic Cuff Blood Pressure Source [Right Arm] Automatic Cuff Blood Pressure Position [Right Arm] Sitting 02 Sat by Pulse Oximetry 97 Oxygen Delivery Method Room Air Room Air Orders (Tests/Meds): ED MEDICATIONS Discontinued Medications Generic Name Dose Route Start Last Admin Trade Name Carlito PRN Reason Stop Dose Admin Ibuprofen 800 mg 08/26/24 18:11 08/26/24 18:22 Ibuprofen 800 Mg Tablet PO 08/26/24 18:12 800 mg ONCE ONE Administration Lidocaine 1 each 08/26/24 18:09 08/26/24 18:22 Lidocaine 5% Transdermal Patch TD 08/26/24 18:10 1 each ONCE ONE Administration Orphenadrine Citrate 60 mg 08/26/24 17:52 08/26/24 17:58 Orphenadrine Citrate 60mg/2ml Vial IM 08/26/24 17:53 60 mg ONCE ONE Administration ORDERS Category Date Time Status CT cervical spine wo con Stat Cat Scan 08/26/24 17:52 Completed Medical Decision Narrative: Insert review patient is a 24-year-old male presenting to the emergency department for evaluation of neck pain that has been going on for 1 month. He has had no fevers, no nausea or vomiting and no other symptoms.. Patient is hemodynamically stable and nontoxic-appearing upon arrival, afebrile. Differential diagnosis includes neck strain or sprain, fracture among others. Workup will be conducted with CT scan of cervical spine. Initial inventions include Norflex for pain with lidocaine patch and ibuprofen. Formal imaging read remarkable for nothing acute. Upon repeat evaluation patient's pain is improved. Patient however does not want to wait on the CT scan result so he did leave before that it resulted. I talked to him before he left and told him that we would let him know if anything came from the CT scan. He says he will get it from the portal. Patient safe for discharge home. <Miko Mendoza MD - Last Filed: 08/26/24 23:23> Vital Signs: 08/26/24 17:48 08/26/24 19:12 Temperature 97.8 F 98.0 F Temperature Source Oral Oral Pulse Rate 99 H Pulse Rate [Right Radial] 98 H Respiratory Rate 15 16 Blood Pressure 126/76 Blood Pressure [Right Arm] 126/96 H Blood Pressure Mean [Right Arm] 106 Blood Pressure Source Automatic Cuff Blood Pressure Source [Right Arm] Automatic Cuff Blood Pressure Position [Right Arm] Sitting 02 Sat by Pulse Oximetry 97 Oxygen Delivery Method Room Air Room Air Orders (Tests/Meds): ED MEDICATIONS Discontinued Medications Generic Name Dose Route Start Last Admin Trade Name Carlito PRN Reason Stop Dose Admin Ibuprofen 800 mg 08/26/24 18:11 08/26/24 18:22 Ibuprofen 800 Mg Tablet PO 08/26/24 18:12 800 mg ONCE ONE Administration Lidocaine 1 each 08/26/24 18:09 08/26/24 18:22 Lidocaine 5% Transdermal Patch TD 08/26/24 18:10 1 each ONCE ONE Administration Orphenadrine Citrate 60 mg 08/26/24 17:52 08/26/24 17:58 Orphenadrine Citrate 60mg/2ml Vial IM 08/26/24 17:53 60 mg ONCE ONE Administration ORDERS Category Date Time Status CT cervical spine wo con Stat Cat Scan 08/26/24 17:52 Completed Medical Decision Narrative: Insert review patient is a 24-year-old male presenting to the emergency department for evaluation of neck pain that has been going on for 1 month. He has had no fevers, no nausea or vomiting and no other symptoms.. Patient is hemodynamically stable and nontoxic-appearing upon arrival, afebrile. Differential diagnosis includes neck strain or sprain, fracture among others. Workup will be conducted with CT scan of cervical spine. Initial inventions include Norflex for pain with lidocaine patch and ibuprofen. Formal imaging read remarkable for nothing acute. Upon repeat evaluation patient's pain is improved. Patient however does not want to wait on the CT scan result so he did leave before that it resulted. I talked to him before he left and told him that we would let him know if anything came from the CT scan. He says he will get it from the portal. Patient safe for discharge home. I was consulted by the RAD[facility], and we discussed the complexity of the problems being addressed. I approved the treatment and management plan for this patient's care in the emergency department, thus performing a substantive portion of the medical decision making. Miko Mendoza MD Critical Care <Nikole Feldman (ED), CAR INSTALLATIONS SUPERVISOR - Last Filed: 08/26/24 19:18> Critical Care Time Critical Care Time: No
[2024-08-26] MEDS: ORPHENADRINE CITRATE 60MG/2ML VIAL 60 MG IM (17:58)
[2024-08-26] MEDS: IBUPROFEN 800 MG TABLET PO (18:22)
[2024-08-26] MEDS: LIDOCAINE 5% TRANSDERMAL PATCH 1 EACH TD (18:22)
--- NOTE | 2024-08-26 18:57 | PC.NURSE ---
Report received from Jefferson TOLEDO Pt restig quietly in bed Skin pink warm and dry Resp full and easy Speech clear and appropriate. Pt anxious for discharge
--- NOTE | 2024-08-26 19:11 | PC.NURSE ---
Pt left without discharge instructions. States he will look up results later MD aware
[2024-08-26 19:12] VITALS: BP 126/76; PULSE 99; RESP 16; TEMP 36.7; O2SAT 96
== END 2024-08-26 19:15 | disposition home or self-care (01) ==
PROVIDERS: Emergency Provider Emergency Medicine; PCP Family Medicine
DX: S16.1XXA Strain of muscle, fascia and tendon at neck level, initial encounter (principal); M54.2 Cervicalgia; R51.9 Headache, unspecified; X58.XXXA Exposure to other specified factors, initial encounter
CPT/HCPCS: 72125; 96372; 99284; J2360

== ENCOUNTER 2024-09-04 16:00 | Outpatient (CLI) | payer OTHER, SELFPAY ==
[2024-09-04 18:51] LABS: Valproic Acid, (Depakene) 91.2 ug/ml (50-100)
== END 2024-09-04 23:59 | disposition home or self-care (01) ==
LOC: LAB.DROPOF 09-05 13:05
PROVIDERS: PCP Family Medicine; Visit Provider Family Medicine
DX: Z79.899 Other long term (current) drug therapy (principal)
CPT/HCPCS: 80164

== ENCOUNTER 2024-10-30 16:22 | Outpatient (CLI) | payer OTHER, SELFPAY ==
--- OUTSIDE RECORDS SUMMARY | 2024-10-30 16:24 | XMS_ITS | Encounter Summary ---
Author Organization Healthcare Address [address] [place] [address] Care Team Providers Care Assistant Director Of Residence Life Name Role Phone Esteban Ya MD Primary Care Provider [phone] Encounter Details Date Type Department Care Team (Late st Contact Info) Description 06/19/2024 Lab Requisition [facility] [address] [place] [address] Lida Quintero MD [address] [place] [phone] Routine general medical examination at a health care facility Social History Tobacco Use Types Packs/Day Years Used Date Smoking Tobacco: Former Cigarettes 0.5 10.5 2 - 11/2022 Passive Smoke Exposure: Never Smokeless Tobacco: Never Alcohol Use Standard Drinks/Week Comments Not Currently 0 (1 standard drink = 0.6 oz pure alcohol) Alcoholic Drinks/day: Occasional alcohol use Sex and Gender Information Value Date Recorded Sex Assigned at Not on file Legal Sex Male 8:51 PM EDT Gender Identity Not on file Sexual Orientation Choose not to disclose 2021 4:55 AM EST documented as of this encounter Plan of Treatment Upcoming Encounters Date Type Department Care Team (Late st Contact Info) Description 11/28/2024 8:45 AM EDT Consult [place] [facility] [address] [place] [address] Janie Liz MD [address] [place] [address] 02/01/2025 1:30 PM EDT Office Visit [facility] [address] [place] [address] Flex Rogers MD [address] [place] [address] documented as of this encounter Visit Diagnoses Diagnosis Routine general medical examination at a health care facility documented in this encounter Additional Health Concerns Assessment Noted Time A fall risk assessment has been complete d for the patient 02/03/2024 1:48 PM EDT A Body Mass Index follow-up plan has been documented for the patient 02/03/2024 3:34 PM EDT documented as of this encounter Care Teams Assistant Director Of Residence Life Relationship Specialty Start Date End Date Esteban Ya MD [address] [place] [address] PCP - General 09/20/20 documented as of this encounter
--- OUTSIDE RECORDS SUMMARY | 2024-10-30 16:24 | XMS_ITS | Encounter Summary ---
Author Organization Healthcare Address [address] [place] [address] Care Team Providers Care Ice Cream Machine Operator Name Role Phone Esteban Ya MD Primary Care Provider [phone] Encounter Details Date Type Department Care Team (Late st Contact Info) Description 06/20/2024 Lab Requisition [facility] [address] [place] [address] Lida Quintero MD [address] [place] [phone] Routine general medical examination at a [...] [address] [place] [address] Janie Liz MD [address] [place] [address] 02/01/2025 1:30 PM EDT Office Visit [facility] [address] [place] [address] Flex Rogers MD [address] [place] [address] documented as of this encounter [...] documented as of this encounter Care Teams Ice Cream Machine Operator Relationship Specialty Start Date End Date Esteban Ya MD [address] [place] [address] PCP - General 09/20/20 documented as of this encounter
--- OUTSIDE RECORDS SUMMARY | 2024-10-30 16:24 | XMS_ITS | Clinical Summary ---
Author Organization [facility] Address [address] [place] [address] Care Team Providers Care Soft Water Mechanic Name Role Phone Esteban Ya MD Primary Care Provider [phone] Allergies Active Allergy Reactions Criticality Noted Date Comments Citalopram Vomiting High 02/14/2023 Medications * This document contains information received from the source organization and may not represent a complete record from that organization. bisoprolol (Zebeta) 5 MG tabletIndicatio ns:Hypertension Take 1 tablet (5 mg) by mouth 1 (one) time each day. Active lisinopril 10 MG tabletIndicatio ns:Hypertension Take 2 tablets (20 mg) by mouth 1 (one) time each day. Active traZODone (Desyrel) 50 MG tablet Take 2 tablets (100 mg) by mouth at night if needed for sleep or depression. 3 Active ARIPiprazole (Abilify) 10 MG tablet Take 10 mg by mouth every night. 3 Active Lybalvi 15-10 MG tablet Take 1 tablet by mouth every night. 2 Active Rexulti 2 MG tablet tablet Take 1.5 tablets (3 mg) by mouth 1 (one) time each day. 3 Active cyclobenzaprine (Flexeril) 10 MG tablet Take 1 tablet (10 mg) by mouth if needed. 3 Active glipiZIDE XL (Glucotrol XL) 10 MG 24 hr tablet Take 1 tablet (10 mg) by mouth 1 (one) time each day. 3 Active Ozempic, 0.25 or 0.5 MG/DOSE, 2 MG/3ML solution pen-injector Inject 1 Insert into the muscle 1 (one) time per week. 3 Active Ventolin HFA 108 (90 Base) MCG/ACT inhaler Inhale if needed for wheezing or shortness of breath. 3 Active ergocalciferol 1.25 MG (81534 UT) capsule Take 1 capsule (50,000 Units) by mouth 1 (one) time per week. 3 Active sertraline (Zoloft) 50 MG tablet Take 3 tablets (150 mg) by mouth 1 (one) time each day. 4 Active Farxiga 10 MG tablet Take 1 tablet (10 mg) by mouth 1 (one) time each day. 3 Active OXcarbazepine (Trileptal) 300 MG tablet Take 1 tablet (300 mg) by mouth 2 (two) times a day. 4 Active DULoxetine (Cymbalta) [address] capsule Take 1 capsule (60 mg) by mouth 1 (one) time each day. 4 Active buPROPion XL (Wellbutrin XL) 150 MG 24 hr tablet Take 1 tablet (150 mg) by mouth 1 (one) time each day. 4 Active Vraylar 4.5 MG capsule 4 Active Active Problems Problem Noted Date Diagnosed Date Acute gastroenteritis 03/16/2023 03/16/2023 Acute maxillary sinusitis 03/16/20232022 Anxiety 03/16/2023 03/16/2023 Atypical chest pain 03/16/2023 03/16/2023 Chest wall pain 03/16/2023 03/16/2023 Bronchitis 03/16/2023 03/16/2023 Colitis 03/16/2023 03/16/2023 Costochondritis 03/16/2023 03/16/2023 Diabetes 03/16/2023 03/16/2023 Difficult bowel movements 03/16/20232022 Dizziness 03/16/2023 03/16/2023 GERD with esophagitis 03/16/2023 03/16/2023 HTN (hypertension) 03/16/2023 03/16/2023 Impacted ear wax 03/16/2023 03/16/2023 Insomnia 03/16/2023 03/16/2023 Low back pain 03/16/2023 03/16/2023 Lumbar strain 03/16/2023 03/16/2023 Nausea & vomiting 03/16/2023 03/16/2023 Non-compliance 03/16/2023 03/16/2023 Otitis media 03/16/2023 03/16/2023 Overweight 03/16/2023 03/16/2023 Poison isaias 03/16/2023 03/16/2023 Preseptal cellulitis of right eye 03/16/2023 03/16/2023 Puncture wound of foot without foreign body 11/202203/16/2023 Rectal bleeding 03/16/2023 03/16/2023 Schizophrenia 03/16/2023 03/16/2023 Sinusitis 03/16/2023 03/16/2023 SOB (shortness of breath) 03/16/20232022 Sore throat 03/16/2023 03/16/2023 Depression 12/02/2016 Intractable migraine without aura and without status migrainosus 12/02/2016 Obesity 12/02/2016 Headache 12/25/2015 Encounters * This document contains information received from the source organization and may not represent a complete record from that organization. 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 type 1 diabetes mellitus ([facility]); Choroidal neovascular membrane of both eyes 08/03/2024 7:55 AM EDT Ancillary Procedure [facility] [address] [place] [address] 08/03/2024 Travel from Last 3 Months Immunizations Immunization Administration Dates Next Due Influenza, seasonal, injectable, preservative fr ee 02/25/2018 Meningococcal MCV4, Unspecified 08/26/2009 Tdap 08/26/2009 Family History Medical History Relation Name Comments Asthma Father Schizophrenia Father Schizophrenia Father's Brother Heart disease Maternal Grandfather Diabetes Maternal Grandmother Heart disease Maternal Grandmother Diabetes Mother Diabetes type II Mother Hypertension Mother Cancer Mother's Brother Breast cancer Mother's Sister Schizophrenia Paternal Grandmother Relation Name Status Comments Father Father's Brother Maternal Grandfather Maternal Grandmother Mother Mother's Brother Mother's Sister Paternal Grandmother Social History Tobacco Use Types Packs/Day Years Used Date Smoking Tobacco: Former Cigarettes 0.5 10.5 2 11/2022 Passive Smoke Exposure: Never Smokeless Tobacco: Never Tobacco Cessation:Counseling Given: Not Answered Alcohol Use Standard Drinks/Week Comments Not Currently 0 (1 standard drink = 0.6 oz pure alcohol) Alcoholic Drinks/day: Occasional alcohol use Sex and Gender Information Value Date Recorded Sex Assigned at Not on file Legal Sex Male 8:51 PM EDT Gender Identity Not on file Sexual Orientation Choose not to disclose 2021 4:55 AM EST Last Filed Vital Signs Vital Sign Reading Time Taken Comments Blood Pressure 144/97 04/17/2022 11:37 AM EST Pulse 58 04/17/2022 5:35 AM EST Temperature 37.2 C (98.9 F) 04/16/2022 5:51 PM EST Respiratory Rate 16 04/16/2022 5:51 PM EST Oxygen Saturation 94% 04/17/2022 5:35 AM EST Inhaled Oxygen Concentration - - Weight 142 kg (313 lb) 04/15/2022 10:24 PM EST Height 195.6 cm (6' 5 ) 04/15/2022 10:24 PM EST Body Mass Index 37.12 04/15/2022 10:24 PM EST Plan of Treatment Upcoming Encounters Date Type Department Care Team (Late st Contact Info) Description 11/28/2024 8:45 AM EDT Consult [place] [facility] [address] [place] [address] Janie Liz MD [address] [place] [address] 02/01/2025 1:30 PM EDT Office Visit [facility] [address] [place] [address] Flex Rogers MD [address] [place] [address] Health Maintenance Due Date Last Done Comments [facility]-Depression Screening 1998 [facility]-HIV Screening 1998 [facility]-Hepatitis C Screening 1998 [facility]-/Child/Adol SDOH Screenings 1998 Diabetes: Dental Exam 2008 [facility]-Varicella Vaccines (1 of 2 - 13+ 2-dose series) 08/20/2011 HPV Vaccines (1 - Male 3-dose series) 2013 [facility]- SDOH Screenings 2016 [facility]-Adult SDOH Screenings 2016 [facility]-Hepatitis B Vaccines (1 of 3 - 19+ 3-dose series) 2017 [facility]-Pneumococcal Vaccine: Pediatrics (0 to 5 Years) and At-Risk Patients (6 to 49 Years) (1 of 2 - PCV) 2017 [facility]-DTaP,Tdap,and Td Vaccines (2 - Td or Tdap) 08/27/2019 08/26/2009 [facility]-Diabetes: Hemoglobin A1C 10/14/2022 04/16/2022 [id number]-19 Vaccine (3 - 2023- season) 2024 02/08/2021, 01/12/2021 [facility]-Influenza Vaccine (Season Ended) 2025 02/25/2018 [facility]-Zoster Vaccines (1 of 2) 2048 [facility]-Obesity Intervention Completed 025, 02/03/2024, 09/30/2023, Additional history exists [facility]-HIB Vaccines Aged Out No longer e ligible based on patient's age to complete this topic [facility]-Hepatitis A Vaccines Aged Out No longer eligible based on patient's age to complete this topic [facility]-IPV Vaccines Aged Out No longer e ligible based on patient's age to complete this topic [facility]-Rotavirus Vaccines Aged Out No lo nger eligible based on patient's age to complete this topic Procedures Procedure Name Priority Date/Time Associated Diagnosis Comments OCT, RETINA - OU - BOTH EYES Routine 08/03/2024 3:00 PM EDT NPDR (nonproliferative diabetic retinopathy) ([facility]) 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 type 1 diabetes mellitus ([facility]) Choroidal neovascular membrane of both eyes HEMOGLOBIN A1C STAT 04/16/2022 1:43 AM EST from Last 3 Months or Most Recently Relevant to Health Maintenance Results * OCT, Retina - OU - Both Eyes (08/03/2024 3:00 PM EDT) Anatomical Region Laterality Modality Head Optical Coherenc e Tomography Narrative 08/03/2024 3:00 PM EDT Right eye (OD) -- dry with staphyloma Left eye (OS) - dry Flex Rogers MD OPHTH TOMOGRAPHY Final Resu lt * (ABNORMAL) Hemoglobin A1c (04/16/2022 1:43 AM EST) Hemoglobin A1c 10.5(H) <5.7 % 04/16/2022 4:07 AM EST [facility] Blood Venous blood specimen / Unknown Venipuncture / Unknown 04/16/2022 1:43 AM EST 04/16/2022 1:50 AM EST Narrative [facility] - 04/16/2022 4:07 AM EST HA1C Interpretive Data: Diagnosis of Diabetes: Diabetic > or = 6.5% Pre-diabetic 5.7 to 6.4% Non-diabetic < or = 5.6% Glycemic Targets for Type I and Type II Diabetics: Non- Adults <7.0% Adults <6.0% Children and Adolescents <7.5% Source: [place] [employer]. Standards of medical care in diabetes,2017. Diabetes Care.2017:40 (suppl 1):S1-S135. HbA1c assay performed by an ion-exchange chromatography method that is certified traceable to the DCCT. us Tita Cochran MD LAB BLOOD ORDERABLES Final Re sult [facility] [address] [place] [address] from Last 3 Months or Most Recently Relevant to Health Maintenance Insurance [employer] [facility] MEDICAID Care Teams Soft Water Mechanic Relationship Specialty Start Date End Date Esteban Ya MD [address] [place] [address] PCP - General 09/20/20
--- OUTSIDE RECORDS SUMMARY | 2024-10-30 16:25 | XMS_ITS | Encounter Summary ---
Author Organization Healthcare Address [address] [place] [address] Care Team Providers Care Rodding Machine Tender Name Role Phone Esteban Ya MD Primary Care Provider [phone] Encounter Details Date Type Department Care Team (Late st Contact Info) Description 07/12/2024 Orders Only External Location [address] [place] [address] Provider, External Social History Tobacco Use Types Packs/Day Years Used Date Smoking Tobacco: Former Cigarettes 0.5 10.5 2 013 - 11/2022 Passive Smoke Exposure: Never Smokeless [...] Info) Description 11/28/2024 8:45 AM EDT Consult [place] [facility] [address], [address] [place] [address] Janie Liz MD [address] [place] [address] 02/01/2025 1:30 PM EDT Office Visit [facility] [address] [place] [address] Flex Rogers MD [address] [address] documented as of this encounter Procedures Procedure Name Priority Date/Time Associated Diagnosis Comments MR THORACIC OUTSIDE IMAGES 07/12/2024 1:51 PM EST documented in this encounter Results * MR THORACIC OUTSIDE IMAGES (07/12/2024 1:51 PM EST) Anatomical Region Laterality Modality Magnetic Resonan ce 07/12/2024 1:51 PM EST us External Provider IMG MRI PROCEDURES Final Resul t documented in this encounter Visit Diagnoses Not on filedocumented in this encounter Additional Health Concerns Assessment Noted Time A fall risk assessment has been complete d for the patient 02/03/2024 1:48 PM EDT A Body Mass Index follow-up plan has been documented for the patient 02/03/2024 3:34 PM EDT documented as of this encounter Care Teams Rodding Machine Tender Relationship Specialty Start Date End Date Esteban Ya MD [address] [place] [address] PCP - General 09/20/20 documented as of this encounter
--- OUTSIDE RECORDS SUMMARY | 2024-10-30 16:25 | XMS_ITS | Encounter Summary ---
Author Organization Healthcare Address [address] [place] [address] Care Team Providers Care Lockstitch Hemmer Name Role Phone Esteban Ya MD Primary Care Provider [phone] Reason for Visit * Reason Onset Date Comments HCN - Patient Message 09/26/2024 Rs 09/26 Encounter Details Date Type Department Care Team (Late st Contact Info) Description 09/26/2024 Telephone [place] [facility] [address] [place] [address] Janie Liz MD [address] [place] [address] HCN - Patient Message (Rs 09/26) Social History Tobacco Use Types Packs/Day Years [...] AM EST documented as of this encounter Miscellaneous Notes * Telephone Encounter - Austin Beckera - 09/26/2024 8:10 AM EDT Patient Phone Message Reason for Call: Rs 09/26 Best contact number and optimal time of day to reach caller: [phone] / pt Note: Please do not reply to this message. Follow-up communication and further actions as a result of this message need to be communicated with the patient directly, if the patient is not active onMyChart. If the patient is active on MyChart, they will receive notification of the communication/outcome via MyChart. documented in this encounter Plan of Treatment Upcoming Encounters Date Type Department Care Team (Late st Contact Info) Description 11/28/2024 8:45 AM EDT Consult [place] [facility] [address] [place] [address] Janie Liz MD [address] [place] [address] 02/01/2025 1:30 PM EDT Office Visit [facility] [address] [facility] [place] [address] Flex Rogers MD [address] [place] [address] documented as of this encounter Visit Diagnoses Not on filedocumented in this encounter Additional Health Concerns Assessment Noted Time A fall risk assessment has been complete d for the patient 08/03/2024 2:04 PM EDT A Body Mass Index follow-up plan has been documented for the patient 08/03/2024 3:10 PM EDT documented as of this encounter Care Teams Lockstitch Hemmer Relationship Specialty Start Date End Date Esteban Ya MD [address] [place] [address] PCP - General 09/20/20 documented as of this encounter
[2024-10-30 17:25] LABS: Basophils # 0.1 K/mm3 (0-0.2); Basophils % 0.8 % (0.1-2.0); Eosinophils # 0.2 Kmm3 (0.0-0.4); Eosinophils % 2.3 % (0.1-12.0); Hematocrit 44.9 % (42.0-52.0); Hemoglobin 14.6 g/dL (14.1-18.0); Immature Granulocytes # 0.02 10^3uL; Immature Granulocytes % 0.2 %; Lymphocytes # 4.3 K/mm3 (0.7-4.5); Lymphocytes % 41.7 % (10-50); Mean Corpuscular HGB Conc 32.5 g/dL (31.8-35.4); Mean Corpuscular Hemoglobin 28.5 pg (27.0-31.2); Mean Corpuscular Volume 87.5 fl (80-94); Mean Platelet Volume 9.9 fl (7.4-10.4); Monocytes # 0.5 K/mm3 (0.1-1.0); Monocytes % 5.1 % (1.7-9.3); Neutrophils # 5.1 K/mm3 (1.8-7.8); Neutrophils % 49.9 % (37.0-80.0); Nucleated Red Blood Cells # 0 10^3/uL; Nucleated Red Blood Cells % 0 %; Platelet Count 219 K/mm3 (142-424); Red Blood Count 5.13 M/mm3 (4.60-6.20); Red Cell Distribution Width 13.2 % (11.5-17.5); Red Cell Distribution Width-SD 42.5 fL; White Blood Count 10.2 K/mm3 (4.8-10.8)
[2024-10-30 17:51] LABS: Albumin Level 4.7 g/dl (3.5-5.0); Chloride 94 mmol/L (98-107)
[2024-10-30 17:52] LABS: Potassium 4.1 mmoL/L (3.5-5.1); Sodium 140 mmol/L (136-145)
[2024-10-30 17:54] LABS: Alanine Aminotransferase 13 U/L (12-78); Anion Gap 17.1 mEq/L (5-15); Aspartate Amino Transferase 22 U/L (17-59); Blood Urea Nitrogen 15 mg/dl (9-20); Carbon Dioxide 33 mmol/L (22.0-30.0); Estimated Glomerular Filt Rate 102 ml/min (>60); GFR (African American) 123 ML/MIN (>60)
[2024-10-30 17:55] LABS: Albumin/Globulin Ratio 1.5 (1.1-1.8); Alkaline Phosphatase 86 U/L (38-126); Bilirubin,Total 0.3 mg/dl (0.2-1.3); Calcium 9.6 mg/dl (8.4-10.2); Chol/HDL Ratio 4.8 (1-3.5); Cholesterol 218 mg/dl (140-200); Globulin 3.2 g/dL (1.3-3.2); Glucose 177 mg/dl (74-100); HDL Cholesterol 45 mg/dl (40-60); Total Protein,Serum 7.9 g/dl (6.3-8.2); Triglycerides 272 mg/dl (30-150); VLDL Cholesterol 54 mg/dL (0-40)
[2024-10-30 18:06] LABS: Direct LDL Cholesterol 118.71 mg/dL (100-129)
[2024-10-30 18:24] LABS: Thyroid Stimulating Hormone 3.13 uIU/mL (0.465-4.68)
[2024-10-30 18:27] LABS: Hemoglobin A1C 8.1 % (4.0-6.0)
[2024-10-30 18:50] LABS: Free T4 (Free Thyroxine) 0.96 ng/dl (0.78-2.19)
[2024-11-02 16:16] LABS: Free Valproic Acid (Depakote) 3.6 ug/mL (6.0-22.0)
== END 2024-10-30 23:59 | disposition home or self-care (01) ==
PROVIDERS: PCP Family Medicine; Visit Provider Nurse Practitioner Acute Care
DX: F32.9 Major depressive disorder, single episode, unspecified (principal); G47.00 Insomnia, unspecified; F20.9 Schizophrenia, unspecified; E66.9 Obesity, unspecified; E11.9 Type 2 diabetes mellitus without complications; Z51.81 Encounter for therapeutic drug level monitoring
CPT/HCPCS: 36415; 80053; 80061; 80165; 83036; 84439; 84443; 85025

== ENCOUNTER 2024-10-31 14:27 | Outpatient (CLI) | payer OTHER, SELFPAY ==
--- NOTE | 2024-10-31 14:29 | XR_ITS ---
FINAL REPORT CLINICAL HISTORY: Right Foot Pain FINDINGS: Three views show no evidence of acute displaced fracture or dislocation of the visualized bony architecture. The joint spaces appear normal. IMPRESSION: Unremarkable exam. Reviewed, Interpreted and Dictated by Rosalinda Dominique MD Transcribed by Keri Marrero Authenticated and [facility]
--- NOTE | 2024-10-31 14:29 | XR_ITS ---
FINAL REPORT CLINICAL HISTORY: Left Foot Pain FINDINGS: Three views show no evidence of acute displaced fracture or dislocation of the visualized bony architecture. The joint spaces appear normal. IMPRESSION: Unremarkable exam. Reviewed, Interpreted and Dictated by Rosalinda Dominique MD Transcribed by Keri Marrero Authenticated and [facility]
--- OUTSIDE RECORDS SUMMARY | 2024-10-31 14:31 | XMS_ITS | Clinical Summary ---
Author Organization [facility] Address [address] [place] [address] Care Team Providers Care Coat Repair Inspector Name Role Phone Esteban Ya MD Primary Care Provider [phone] Allergies Active Allergy Reactions Criticality Noted Date [...] of breath. 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 ([facility]); Choroidal neovascular membrane of both eyes 08/03/2024 7:55 AM EDT Ancillary Procedure [facility] [address] [place] [address] 08/03/2024 Travel from Last 3 [...] [facility] [place] [facility] [address] [place] [address] Janie Liz MD [address] [place] [address] 02/01/2025 1:30 PM EDT Office Visit [facility] [address] [place] [address] Flex Rogers MD [address] [place] [address] Health Maintenance Due Date Last [...] 08/27/2019 08/26/2009 [facility]-Diabetes: Hemoglobin A1C 10/14/2022 04/16/2022 [id number] Vaccine (3 - 2023- season) 2024 02/08/2021, [...] 3:00 PM EDT NPDR (nonproliferative diabetic retinopathy) ([facility]) 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 Standards of medical care in diabetes,2017. Diabetes Care.2017:40 (suppl 1):S1-S135. HbA1c assay performed by an ion-exchange chromatography method that is certified traceable to the DCCT. us Tita Cochran MD LAB BLOOD ORDERABLES Final Re sult [facility] [address] [place] [address] from Last 3 Months or Most Recently Relevant to Health Maintenance Insurance [employer] [facility] MEDICAID Care Teams Coat Repair Inspector Relationship Specialty Start Date End Date Esteban Ya MD [address] [place] [address] PCP - General 09/20/20
--- OUTSIDE RECORDS SUMMARY | 2024-10-31 14:31 | XMS_ITS | Encounter Summary ---
Author Organization Healthcare Address [address] [place] [address] Care Team Providers Care Coffin Maker Name Role Phone Esteban Ya MD Primary Care Provider [phone] Encounter Details Date Type Department Care Team (Late st Contact Info) Description 06/20/2024 Lab Requisition [facility] [address] [place] [address] Lida Quintero MD [address] [place] [address] Routine general medical examination at a [...] [address] [place] [address] Janie Liz MD [address] [place] [address] 02/01/2025 1:30 PM EDT Office Visit [facility] [address] [place] [address] Flex Rogers MD [address] [place] [address] documented as of this encounter [...] documented as of this encounter Care Teams Coffin Maker Relationship Specialty Start Date End Date Esteban Ya MD [address] [place] [address] PCP - General 09/20/20 documented as of this encounter
--- OUTSIDE RECORDS SUMMARY | 2024-10-31 14:31 | XMS_ITS | Encounter Summary ---
Author Organization Healthcare Address [address] [place] [address] Care Team Providers Care Combatant Swimmer Name Role Phone Esteban Ya MD Primary Care Provider [phone] Reason for Visit * Reason Onset Date Comments HCN - Patient Message 09/26/2024 Rs 09/26 Encounter Details Date Type Department Care Team (Late st Contact Info) Description 09/26/2024 Telephone [place] [facility] [address], [address] [place] [address] Janie Liz MD [address] [place] [address] HCN - Patient Message (Rs [...] optimal time of day to reach caller: [phone] / pt Note: Please do not reply [...] Info) Description 11/28/2024 8:45 AM EDT Consult [place] [facility] [address] [place] [address] Janie Liz MD [address] [place] [address] 02/01/2025 1:30 PM EDT Office Visit [facility] [address] [facility] [place] [address] Flex Rogers MD [address] [place] [address] documented as of this encounter Visit Diagnoses Not on filedocumented in this encounter Additional Health Concerns Assessment Noted Time A fall risk assessment has been complete d for the patient 08/03/2024 2:04 PM EDT A Body Mass Index follow-up plan has been documented for the patient 08/03/2024 3:10 PM EDT documented as of this encounter Care Teams Combatant Swimmer Relationship Specialty Start Date End Date Esteban Ya MD [address] [place] [address] PCP - General 09/20/20 documented as of this encounter
--- OUTSIDE RECORDS SUMMARY | 2024-10-31 14:31 | XMS_ITS | Encounter Summary ---
Author Organization Healthcare Address [address] [place] [address] Care Team Providers Care Bank Cashier Name Role Phone Esteban Ya MD Primary Care Provider [phone] Encounter Details Date Type Department Care Team (Late st Contact Info) Description 06/19/2024 Lab Requisition [facility] [address] [place] [address] Lida Quintero MD [address] [place] [address] Routine general medical examination at a [...] [address] [place] [address] Janie Liz MD [address] [place] [address] 02/01/2025 1:30 PM EDT Office Visit [facility] [address] [place] [address] Flex Rogers MD [address] [place] [address] documented as of this encounter [...] documented as of this encounter Care Teams Bank Cashier Relationship Specialty Start Date End Date Esteban Ya MD [address] [place] [address] PCP - General 09/20/20 documented as of this encounter
--- OUTSIDE RECORDS SUMMARY | 2024-10-31 14:31 | XMS_ITS | Encounter Summary ---
Author Organization Healthcare Address [address] [place] [address] Care Team Providers Care Casino Games Dealer Name Role Phone Esteban Ya MD Primary Care Provider [phone] Encounter Details Date Type Department Care Team (Late st Contact Info) Description 07/12/2024 Orders Only External Location [address] [place] [address] Provider, External Social History Tobacco Use Types [...] Info) Description 11/28/2024 8:45 AM EDT Consult [place] [facility] [address] [place] [address] Janie Liz MD [address] [place] [address] 02/01/2025 1:30 PM EDT Office Visit [facility] [place] [facility] [address] [place] [address] Flex Rogers MD [address] [address] documented as of this encounter Procedures Procedure [...] documented as of this encounter Care Teams Casino Games Dealer Relationship Specialty Start Date End Date Esteban Ya MD [address] [place] [address] PCP - General 09/20/20 documented as of this encounter
== END 2024-10-31 23:59 | disposition home or self-care (01) ==
LOC: RAD 14:27
PROVIDERS: PCP Family Medicine; Visit Provider Podiatrist
DX: M79.671 Pain in right foot (principal); M79.672 Pain in left foot
CPT/HCPCS: 73630

== ENCOUNTER 2024-11-22 15:53 | Emergency (ER) | payer OTHER, SELFPAY ==
[2024-11-22 16:14] VITALS: BP 122/85; PULSE 94; O2SAT 98
--- OUTSIDE RECORDS SUMMARY | 2024-11-22 16:15 | XMS_ITS | Encounter Summary ---
Author Organization Healthcare Address [address] [place] [address] Care Team Providers Care Ediphone Operator Name Role Phone Esteban Ya MD Primary Care Provider [phone] Reason for Visit * Reason Onset Date Comments HCN - Patient Message 09/26/2024 Rs 09/26 Encounter Details Date Type Department Care Team (Late st Contact Info) Description 09/26/2024 Telephone [place] [facility] [address] [place] [address] Janie Liz MD [address] [place] [address] HCN - Patient Message (Rs [...] optimal time of day to reach caller: [phone] / pt Note: Please do not reply [...] Info) Description 11/28/2024 8:45 AM EDT Consult [place] [facility] [address] [place] [address] Janie Liz MD [address] [place] [address] 02/01/2025 1:30 PM EDT Office Visit [facility] [address] [facility] [place] [address] Flex Rogers MD [address] [place] [address] documented as of this encounter Visit Diagnoses Not on filedocumented in this encounter Additional Health Concerns Assessment Noted Time A fall risk assessment has been complete d for the patient 08/03/2024 2:04 PM EDT A Body Mass Index follow-up plan has been documented for the patient 08/03/2024 3:10 PM EDT documented as of this encounter Care Teams Ediphone Operator Relationship Specialty Start Date End Date Esteban Ya MD [address] [place] [address] PCP - General 09/20/20 documented as of this encounter
--- OUTSIDE RECORDS SUMMARY | 2024-11-22 16:15 | XMS_ITS | Encounter Summary ---
Author Organization Healthcare Address [address] [place] [address] Care Team Providers Care Wildlife Conservationist Name Role Phone Esteban Ya MD Primary Care Provider [phone] Encounter Details Date Type Department Care Team (Late st Contact Info) Description 06/19/2024 Lab Requisition [facility] [address] [place] [address] Lida Quintero MD [address] [place] [address] Routine general medical examination at a [...] [address] [place] [address] Janie Liz MD [address] [place] [address] 02/01/2025 1:30 PM EDT Office Visit [facility] [address] [place] [address] Flex Rogers MD [address] [place] [address] documented as of this encounter [...] documented as of this encounter Care Teams Wildlife Conservationist Relationship Specialty Start Date End Date Estebna Ya MD [address] [place] [address] PCP - General 09/20/20 documented as of this encounter
--- OUTSIDE RECORDS SUMMARY | 2024-11-22 16:15 | XMS_ITS | Encounter Summary ---
Author Organization Healthcare Address [address] [place] [address] Care Team Providers Care Chrome Plater Name Role Phone Esteban Ya MD Primary Care Provider [phone] Encounter Details Date Type Department Care Team (Late st Contact Info) Description 06/20/2024 Lab Requisition [facility] [address] [place] [address] Lida Quintero MD [address] [place] [address] Routine general medical examination at a [...] [address] [place] [address] Janie Liz MD [address] [place] [address] 02/01/2025 1:30 PM EDT Office Visit [facility] [address] [place] [address] Flex Rogers MD [address] [place] [address] documented as of this encounter [...] documented as of this encounter Care Teams Chrome Plater Relationship Specialty Start Date End Date Esteban Ya MD [address] [place] [address] PCP - General 09/20/20 documented as of this encounter
--- OUTSIDE RECORDS SUMMARY | 2024-11-22 16:15 | XMS_ITS | Encounter Summary ---
Author Organization Healthcare Address [address] [place] [address] Care Team Providers Care Dental Technician Apprentice Name Role Phone Esteban Ya MD Primary Care Provider [phone] Encounter Details Date Type Department Care Team (Late st Contact Info) Description 07/12/2024 Orders Only External Location [address] [place] [address] Provider, External Social History Tobacco Use Types [...] Info) Description 11/28/2024 8:45 AM EDT Consult [place] [facility] [address] [place] [address] Janie Liz MD [address] [place] [address] 02/01/2025 1:30 PM EDT Office Visit [facility] [address] [place] [address] Flex Rogers MD [address] [address] documented as of this encounter Procedures Procedure [...] documented as of this encounter Care Teams Dental Technician Apprentice Relationship Specialty Start Date End Date Esteban Ya MD [address] [place] [address] PCP - General 09/20/20 documented as of this encounter
--- OUTSIDE RECORDS SUMMARY | 2024-11-22 16:15 | XMS_ITS | Clinical Summary ---
Author Organization [facility] Address [address] [place] [address] Care Team Providers Care Jinriksha Driver Name Role Phone Esteban Ya MD Primary Care Provider [phone] Allergies Active Allergy Reactions Criticality Noted Date [...] of breath. 3 Active ergocalciferol 1.25 MG (08334 UT) capsule Take 1 capsule (50,000 Units) [...] Type Department Care Team Description 09/26/2024 Telephone [place] [facility] [address] 1st [place] [address] Janie Liz MD HCN - Patient Message (Rs 09/26) from Last 3 Months Immunizations Immunization Administration [...] Info) Description 11/28/2024 8:45 AM EDT Consult [place] [facility] [address] [place] [address] Janie Liz MD [address] [place] [address] 02/01/2025 1:30 PM EDT Office Visit [facility] [address] [place] [address] Flex Rogers MD [address] [place] [address] Health Maintenance Due Date Last [...] 08/27/2019 08/26/2009 [facility]-Diabetes: Hemoglobin A1C 10/14/2022 04/16/2022 [id number] Vaccine (3 - 2023- season) 2024 02/08/2021, 01/12/2021 [facility]-Influenza Vaccine (#1) 2025 02/25/2018 [facility]-Zoster Vaccines (1 of 2) [...] Procedure Name Priority Date/Time Associated Diagnosis Comments HEMOGLOBIN A1C STAT 04/16/2022 1:43 AM EST from Last 3 Months or Most Recently Relevant to Health Maintenance Results * (ABNORMAL) Hemoglobin A1c (04/16/2022 1:43 AM [...] Adults <6.0% Children and Adolescents <7.5% Source: [place] [employer]. Standards of medical care in diabetes,2017. Diabetes Care.2017:40 (suppl 1):S1-S135. HbA1c assay performed by an ion-exchange chromatography method that is certified traceable to the DCCT. us Tita Cochran MD LAB BLOOD ORDERABLES Final Re sult [facility] [address] [place] [address] from Last 3 Months or Most Recently Relevant to Health Maintenance Insurance Care Teams Jinriksha Driver Relationship Specialty Start Date End Date Esteban Ya MD [address] [place] [address] PCP - General 09/20/20
[2024-11-22 16:17] VITALS: BP 122/85; PULSE 86; RESP 16; TEMP 36.6; O2SAT 97; BMI 33.9
[2024-11-22 16:30] VITALS: BP 118/87; PULSE 90; O2SAT 95
--- NOTE | 2024-11-22 16:30 | ED_ITS ---
Discharge Plan Disposition Patient Disposition: Home, Self-Care Condition: Good Prescriptions Prescriptions: No Action duloxetine 60 mg capsule,delayed release(DR/EC) 60 mg PO DAILY Qty: 30 3RF Farxiga 10 mg tablet 10 mg PO DAILY Qty: 90 4RF albuterol sulfate [Proventil HFA] 90 mcg/actuation HFA aerosol inhaler 2 puff inhalation Q6H Qty: 6.7 0RF melatonin 5 mg tablet 5 mg PO Patient Comments: TAKE 1 TABLET BY MOUTH ONCE DAILY AT BEDTIME NEEDED FOR INSOMNIA omeprazole 20 mg capsule,delayed release(DR/EC) 20 mg PO DAILY Qty: 90 2RF divalproex [Depakote] 250 mg tablet,delayed release (DR/EC) 250 mg PO HS Qty: 30 2RF Rx Instructions: Take with Depakote 500 mg at bedtime. duloxetine 30 mg capsule,delayed release(DR/EC) 30 mg PO DAILY Qty: 30 2RF Rx Instructions: Take with Duloxetine 60 mg daily. benztropine 0.5 mg tablet 0.5 mg PO BID Qty: 60 2RF bisoprolol fumarate 5 mg tablet 5 mg PO DAILY Qty: 30 2RF lisinopril-hydrochlorothiazide 20-12.5 mg tablet 1 tab PO DAILY Qty: 90 0RF divalproex [Depakote] 500 mg tablet,delayed release (DR/EC) 500 mg PO BID Qty: 60 2RF paliperidone [Invega] 3 mg tablet extended release 24hr 3 mg PO DAILY Qty: 30 0RF Invega Sustenna 234 mg/1.5 mL syringe 234 mg IM Q30D Qty: 1.5 2RF Referrals Follow up/Referrals: Audelia Valenzuela APRN [Primary Care Provider, Family Practice] - See instructions Activity Restrictions/Add. Instructions Additional Instructions/Restrictions: You were evaluated in the emergency department today. As instructed by your behavioral health provider, please stop taking your Haldol but continue taking your paliperidone. Follow-up with your behavioral health specialist as well as your primary care provider for further evaluation and management. Return to the emergency department for new or worsening symptoms. Clinical Impressions Clinical Impression: Unintentional misuse of medication Print Language Print Language: Georgian Discharge ED Provider: Deborah Parikh General Adult HPI General Chief complaint: Recheck/Abnormal Lab/Rx Stated complaint: sent by [facility] for tests Time Seen by Provider: 11/22/24 16:24 Mode of Arrival: Ambulatory Source of Information: Patient Description of Symptoms (Recalled from ER Triage Doc. by RN): Patient presents to ED for recheck of condition per psychiatrist. Concerns for overusage of haldol. History of Present Illness HPI narrative: This patient is a 24-year-old male with a history of schizophrenia presenting to the emergency department for evaluation with concern for possible medication toxicity. According to his behavioral health provider who called the hospital, he was previously managed on Haldol but was switched to paliperidone with plan to transition to Invega Sustenna if he tolerated this well about 1 week ago, however he had been taking both the paliperidone and his Haldol. He went to follow-up today and was noted to have flat affect, slightly low blood pressure, and was clammy. Given this, he was referred to the emergency department for assessment of labs and EKG patient states that he has been feeling in the setting of possible antipsychotic toxicity. Patient states that he has been feeling a little bit shaky but denies any other concerns or complaints. He denies SI, HI, or AVH. He also denies any chest pain, shortness of breath, abdominal pain, changes bowel movements, urinary retention, or other concerns. Related Data Home Medications ?Medication ?Instructions ?Recorded ?Confirmed melatonin 5 mg tablet 5 mg PO 09/04/24 11/22/24 Previous Rx's ?Medication ?Instructions ?Recorded albuterol sulfate 90 mcg/actuation 2 puff inhalation Q 6H #6.7 grams 03/29/23 aerosol inhaler (Proventil HFA) bisoprolol fumarate 5 mg tablet 5 mg PO DAILY #30 tabs 07/24/24 lisinopril 20 1 tab PO DAILY #90 tabs 07/0825 mg-hydrochlorothiazide 12.5 mg tablet duloxetine 60 mg capsule,delayed 60 mg PO DAILY #30 ca ps 09/04/24 release omeprazole 20 mg capsule,delayed 20 mg PO DAILY #90 ca ps 09/04/24 release divalproex 500 mg tablet,delayed 500 mg PO BID #60 tab s 09/22/24 release (Depakote) dapagliflozin propanediol 10 mg 10 mg PO DAILY #90 tab s 09/25/24 tablet (Farxiga) divalproex 250 mg tablet,delayed 250 mg PO HS #30 tabs 10/03/24 release (Depakote) duloxetine 30 mg capsule,delayed 30 mg PO DAILY #30 ca ps 10/03/24 release benztropine 0.5 mg tablet 0.5 mg PO BID #60 tabs 10/30 paliperidone 3 mg tablet,extended 3 mg PO DAILY #30 ta bs 11/13/24 release 24 hr (Invega) paliperidone palmitate 234 mg/1.5 234 mg (1.5 mL) IM Q 30D #1.5 mL 11/13/24 mL intramuscular syringe (Invega Sustenna) Allergies Allergy/AdvReac Type Severity Reaction Status Date / Time citalopram AdvReac Intermediate Vomiting Verified 11/22/24 15:28 [facility] Disclaimer: The information contained in this section may have been updated after the patient was seen, as this information can be updated by other users. Medical History Diabetes Dyspnea Major depressive disorder Bronchitis Sinusitis Insomnia Schizophrenia Dizziness SOB (shortness of breath) GERD with esophagitis Surgical History History of wisdom tooth extraction Family History Other Diabetes Heart attack Substance abuse Social History Smoking Status: Never smoker alcohol intake: current alcohol intake frequency: other substance use type: denies use and marijuana current occupational status: unemployed Travel in the last 8 weeks?: None household members: family housing: house number of children: 0 caffeine: Yes Have you lived/traveled outside US in past 30 days?: No Contact w/someone who lives/traveled outside US past 30 days?: No Exposure to someone with infectious disease in past 14 days?: No Do you have a fever (greater than 100.4 F or 38 C)?: No Have you tested positive for COVID-19?: No Exposed to someone with COVID-19 in past 14 days?: No Do you have a sore throat?: No Do you have a cough?: No Do you have any weakness?: No Do you have any diarrhea?: No Are you experiencing any unusual bleeding?: No Do you have any muscle aches/pain?: No Do you have any abdominal pain?: No Are you experiencing loss of taste or smell?: No Other Medical History Have you received the Flu Vaccine for this season: No Have you received the Pneumonia Vaccine: No ROS Obtained: Yes All systems reviewed & no additional complaints except as documented Physical Exam General General appearance: alert and in no apparent distress Head Head exam: atraumatic and normocephalic Eye Eye exam: Present normal appearance, PERRL and EOMI ENT ENT exam: Present normal exam, normal oropharynx, mucous membranes moist and normal external ear exam Neck Neck exam: Present normal inspection, full ROM and trachea midline; Absent tenderness Chest Chest inspection: Present normal inspection and symmetric chest wall rise; Absent tenderness Respiratory Respiratory exam: Present normal lung sounds bilaterally; Absent respiratory distress, wheezes, stridor or accessory muscle use Cardiovascular Cardiovascular exam: Present regular rate and normal rhythm Abdominal Exam Abdominal exam: Present soft; Absent distention, tenderness or guarding Extremities Exam Extremities exam: Present normal inspection, full ROM and normal capillary refill; Absent tenderness or edema Back Exam Back exam: Present normal inspection and full ROM; Absent tenderness Neurological Exam Neurological exam: Present alert, oriented X3, CN II-XII intact and normal gait; Absent motor sensory deficit Psychiatric Psychiatric exam: Present flat affect Skin Skin exam: Present warm and dry Medical Decision Making Medical Records Medical records reviewed: Yes I reviewed the patient's medical records. Screening: Per USPSTF and CDC recommendations, given the prevalence of disease in our region, it is our hospital?s policy to screen for HIV and viral Hepatitis for all patients aged 18 and over and those with ongoing risk factors. Har[place] Inquiry Pt receiving controlled substance: No Vital Signs: 11/22/24 16:14 11/22/24 16:17 11/22/24 16:17 Temperature 97.9 F 97.9 F Temperature Source Oral Oral Pulse Rate 94 H 86 Pulse Rate [Right Radial] 86 Respiratory Rate 16 16 Blood Pressure 122/85 122/85 Blood Pressure [Right Arm] 122/85 Blood Pressure Mean [Right Arm] 97 02 Sat by Pulse Oximetry 98 97 97 Oxygen Delivery Method Room Air Room Air 11/22/24 16:30 11/22/24 17:00 11/22/24 17:41 Temperature 98.2 F Temperature Source Pulse Rate 90 85 76 Pulse Rate [Right Radial] Respiratory Rate 18 Blood Pressure 118/87 133/86 128/76 Blood Pressure [Right Arm] Blood Pressure Mean [Right Arm] 02 Sat by Pulse Oximetry 95 95 Oxygen Delivery Method Room Air Lab Data Lab results reviewed: Yes I reviewed the patient's lab results. Lab Results 11/22/24 17:00: WBC 8.9, RBC 4.93, Hgb 14.3, Hct 41.9 L, MCV 85.0, MCH 29.0, MCHC 34.1, RDW 12.7, Plt Count 244, MPV 9.2, Neut % (Auto) 46.7, Lymph % (Auto) 44.8, [place] % (Auto) 5.0, Eos % (Auto) 2.5, Baso % (Auto) 0.8, Neut # (Auto) 4.2, Lymph # (Auto) 4.0, [place] # (Auto) 0.5, Eos # (Auto) 0.2, Baso # (Auto) 0.1, S odium 135 L, Potassium 4.0, Chloride 100, Carbon Dioxide 26, Anion Gap 13.0, BUN 16, Creatinine 0.70, Estimated Creat Clear 293, Estimated GFR 136, Est GFR ( Amer) 165, Glucose 148 H, Calcium 9.5, Magnesium 1.7, Total Bilirubin 0.5, AST 21, ALT 14, Alkaline Phosphatase 77, Total Protein 7.5, Albumin 4.4, Globulin 3.1, Albumin/Globulin Ratio 1.4 11/22/24 17:00 11/22/24 17:00 Orders (Tests/Meds): ED MEDICATIONS Discontinued Medications Generic Name Dose Route Start Last Admin Trade Name Freq PRN Reason Stop Dose Admin Lactated Ringer's 1,000 mls @ 999 mls/hr 11/22/24 16:37 11/22/24 16:57 Lactated Ringer's 1000 Ml Bag IV 11/22/24 17:37 999 mls/hr .Q1H1M ONE Administration ORDERS Category Date Time Status Complete Blood Count Auto Diff Stat Lab 11/22/24 17:00 Completed Comprehensive Metabolic Panel Stat Lab 11/22/24 17:00 Completed MAG [Magnesium] Stat Lab 11/22/24 17:00 Completed ECG Data Tracing #1: I reviewed this ECG and interpreted as documented below: Sinus rhythm with a ventricular rate of [address] changes concerning for ischemia. Normal QT/QTc with a QTc of 382 ms. Normal QRS of 89 ms. ECG initial impression date: 11/22/24 ECG initial impression time: 16:42 Medical Decision Narrative: In summary, this patient is a 24-year-old male presenting to the Emergency Department for evaluation of possible antipsychotic toxicity since he has been taking both paliperidone and Haldol. Ruling out the most morbid conditions drove assessment. It should be noted patient's history includes schizophrenia which may or may not be at goal therapy. This complicates all aspects of care by increasing patient's risk for morbidity. I reviewed patient's past medical records and noted evaluations outpatient by behavioral health with medication management as detailed in HPI. On exam, the patient has a flat affect but is sitting upright in no acute distress. Vitals are normal on cardiac telemetry. He denies SI, HI, or AVH or any other acute symptoms aside from slight shakiness. Workup included CBC, CMP, magnesium, EKG. He was given a bolus of IV fluids. On reassessment, the patient is resting comfortably with normal vitals on cardiac telemetry. EKG obtained is reassuring, labs are also reassuring. I advised that he stop taking the Haldol and continue taking the paliperidone per his behavioral health provider's notes. It is felt he is appropriate for discharge with close follow-up outpatient. Strict return precautions given Critical Care Critical Care Time Critical Care Time: No
--- NOTE | 2024-11-22 16:40 | ECG_ITS ---
APPROVED REPORT Exam: Resting ECG HR:92 bpm ECG Measurements Heart Rate 92 AXES [place] 153 P 61 QRSd 89 QRS -7 QT 332 T 30 QTc 382 Conclusion SINUS RHYTHM NORMAL ECG Electronically signed by : KALPESH VALERIO, 11/22/2024 20:47:53
[2024-11-22] MEDS: LACTATED RINGERS 1000ML 1,000 ML 999 ML IV (16:57)
[2024-11-22 17:00] VITALS: BP 133/86; PULSE 85; O2SAT 95
[2024-11-22 17:07] LABS: Hematocrit 41.9 % (42.0-52.0); Hemoglobin 14.3 g/dL (14.1-18.0); Immature Granulocytes % 0.2 %; Mean Corpuscular HGB Conc 34.1 g/dL (31.8-35.4); Mean Corpuscular Hemoglobin 29.0 pg (27.0-31.2); Mean Corpuscular Volume 85.0 fl (80-94); Nucleated Red Blood Cells % 0 %; Platelet Count 244 K/mm3 (142-424); Red Blood Count 4.93 M/mm3 (4.60-6.20); Red Cell Distribution Width-SD 39.0 fL; White Blood Count 8.9 K/mm3 (4.8-10.8)
[2024-11-22 17:19] LABS: Alanine Aminotransferase 14 U/L (12-78); Albumin Level 4.4 g/dl (3.5-5.0); Albumin/Globulin Ratio 1.4 (1.1-1.8); Alkaline Phosphatase 77 U/L (38-126); Anion Gap 13.0 mEq/L (5-15); Aspartate Amino Transferase 21 U/L (17-59); Bilirubin,Total 0.5 mg/dl (0.2-1.3); Blood Urea Nitrogen 16 mg/dl (9-20); Calcium 9.5 mg/dl (8.4-10.2); Carbon Dioxide 26 mmol/L (22.0-30.0); Chloride 100 mmol/L (98-107); Creatinine Clearance Estimated 293 mL/min (50-200); Creatinine,Serum 0.70 mg/dl (0.66-1.25); Estimated Glomerular Filt Rate 136 ml/min (>60); GFR (African American) 165 ML/MIN (>60); Globulin 3.1 g/dL (1.3-3.2); Glucose 148 mg/dl (74-100); Potassium 4.0 mmoL/L (3.5-5.1); Sodium 135 mmol/L (136-145); Total Protein,Serum 7.5 g/dl (6.3-8.2)
[2024-11-22 17:20] LABS: Magnesium 1.7 mg/dl (1.6-2.3)
[2024-11-22 17:41] VITALS: BP 128/76; PULSE 76; RESP 18; TEMP 36.8; O2SAT 98
== END 2024-11-22 17:43 | disposition home or self-care (01) ==
PROVIDERS: Emergency Provider Emergency Medicine; PCP Family Medicine
DX: F20.9 Schizophrenia, unspecified (principal)
CPT/HCPCS: 80053; 83735; 85025; 93005; 96360; 99283; 99284; J7120

== ENCOUNTER 2025-02-16 00:36 | Emergency (ER) | payer OTHER, SELFPAY ==
--- OUTSIDE RECORDS SUMMARY | 2025-02-01 07:55 | XMS_ITS | Encounter Summary ---
Author Organization [facility] Address [address] [place] [address] Care Team Providers Care Lawyer Probate Name Role Phone Esteban Ya MD Primary Care Provider [phone] Encounter Details Date Type Department Care Team (Late st Contact Info) Description 02/01/2025 7:55 AM EDT Ancillary Procedure [facility] [address] [place] [address] Social History Tobacco Use Types Packs/Day Years [...] Care Team (Late st Contact Info) Description 08/14/2025 3:45 PM EDT Office Visit [facility] [address] [place] [address] Flex Rogers MD [address] [address] documented as of this encounter Procedures Procedure Name Priority Date/Time Associated Diagnosis Comments OCT, RETINA - OU - BOTH EYES Routine 02/01/2025 2:12 PM EDT NPDR (nonproliferative diabetic retinopathy) documented in this encounter Results * OCT, Retina - OU - Both Eyes (02/01/2025 2:12 PM EDT) Anatomical Region Laterality Modality Head Optical Coherenc e Tomography Narrative 02/01/2025 2:12 PM EDT Myopic fundus Staphyloma right eye (OD) Left eye (OS) -- dry Felx Rogers MD OPHTH TOMOGRAPHY Final Resu lt documented in this encounter Visit Diagnoses Not on filedocumented in this encounter Additional Health Concerns Assessment Noted Time A fall risk assessment has been complete d for the patient 11/28/2024 9:31 AM EDT A Body Mass Index follow-up plan has been documented for the patient 02/01/2025 2:21 PM EDT documented as of this encounter Care Teams Lawyer Probate Relationship Specialty Start Date End Date Esteban Ya MD [address] [place] [address] PCP - General 09/20/20 documented as of this encounter
--- OUTSIDE RECORDS SUMMARY | 2025-02-01 13:30 | XMS_ITS | Encounter Summary ---
Author Organization [facility] Address [address] [place] [address] Care Team Providers Care Hand Coke Drawer Name Role Phone Esteban Ya MD Primary Care Provider [phone] Encounter Details Date Type Department Care Team (Late st Contact Info) Description 02/01/2025 1:30 PM EDT Office Visit [facility] [address] [place] [address] Flex Rogers MD [address] [address] NPDR (nonproliferative diabetic retinopathy) (Primary Dx) Social History Tobacco Use Types Packs/Day Years [...] as of this encounter Miscellaneous Notes * Progress Notes - Flex Rogers MD - 02/01/2025 1:30 PM EDT [facility] Note CHIEF COMPLAINT Patient presents for No chief complaint on file. HISTORY OF PRESENT ILLNESS: Domo Leahy Juan is a 24 y.o. male who presents to the clinic today for: HPI 24 year old (YO) male presents to clinic for 5 month follow up for NPDR (nonproliferative diabetic retinopathy) ([facility]). He states no changes in vision since last visit. Denies flashes, floaters, and pain. Denies using eye drops. Last edited by Darin Childers on 02/01/2025 1:21 PM. REVIEW OF SYSTEMS: ROS Positive for: Eyes Negative for: Constitutional, Gastrointestinal, Neurological, Skin, Genitourinary, Musculoskeletal,HENT, Endocrine, Cardiovascular, Respiratory, Psychiatric, Allergic/Imm, Heme/Lymph Last edited by Darin Childers on 02/01/2025 1:20 PM. Negative except for ROS Positive for: Eyes Negative for: Constitutional, Gastrointestinal, Neurological, Skin, Genitourinary, Musculoskeletal,HENT, Endocrine, Cardiovascular, Respiratory, Psychiatric, Allergic/Imm, Heme/Lymph Last edited by Darin Childers on 02/01/2025 1:20 PM. Referring physician: No referring provider defined for this encounter. HISTORICAL INFORMATION: Selected notes from the medical record: CURRENT MEDICATIONS: No current outpatient medications on file. (Ophthalmic Drugs) No current facility-administered medications for this visit. (Ophthalmic Drugs) Current Outpatient Medications (Other) Medication Sig lamoTRIgine (LaMICtal) 25 MG tablet ARIPiprazole (Abilify) 10 MG tablet Take 10 mg by mouth every night. (Patient not taking: Reported on 11/28/2024) benztropine (Cogentin) 0.5 MG tablet Take 1 tablet by mouth 2 times a day. bisoprolol (Zebeta) 5 MG tablet Take 1 tablet (5 mg) by mouth 1 (one) time each day. cyclobenzaprine (Flexeril) 10 MG tablet Take 1 tablet (10 mg) by mouth if needed. (Patient not taking: Reported on 11/28/2024) divalproex (Depakote) [address] tablet TAKE 1 TABLET BY MOUTH AT BEDTIME NIGHTLY TAKE WITH SIDYAGZE217NI AT BEDTIME DULoxetine (Cymbalta) [address] capsule TAKE 1 CAPSULE BY MOUTH ONCE DAILY TAKE WITH 60MG DAILY ergocalciferol 1.25 MG (88355 UT) capsule Take 1 capsule (50,000 Units) by mouth 1 (one) time per week. Farxiga 5 MG tablet Take 1 tablet by mouth daily. glipiZIDE XL (Glucotrol XL) 10 MG 24 hr tablet Take 1 tablet (10 mg) by mouth 1 (one) time each day. (Patient not taking: Reported on 11/28/2024) haloperidol (Haldol) 10 MG tablet Take 1 tablet by mouth 2 times a day. (Patient not taking: Reported on 11/28/2024) lisinopril 10 MG tablet Take 2 tablets (20 mg) by mouth 1 (one) time each day. lisinopril-hydroCHLOROthiazide 20-12.5 MG tablet Take 1 tablet by mouth daily. LORazepam (Ativan) 1 MG tablet Take 1 tablet by mouth daily. Lybalvi 15-10 MG tablet Take 1 tablet by mouth every night. (Patient not taking: Reported on 11/28/2024) Melatonin 5 MG tablet tablet TAKE 1 TABLET BY MOUTH ONCE DAILY AT BEDTIME NEEDED FOR INSOMNIA omeprazole (PriLOSEC) [address] capsule Take 1 capsule by mouth daily. OXcarbazepine (Trileptal) 300 MG tablet Take 1 tablet (300 mg) by mouth 2 (two) times a day. Ozempic, 0.25 or 0.5 MG/DOSE, 2 MG/3ML solution pen-injector Inject 1 Insert into the muscle 1 (one) time per week. (Patient not taking: Reported on 11/28/2024) paliperidone (Invega) 3 MG 24 hr tablet Rexulti 2 MG tablet tablet Take 1.5 tablets (3 mg) by mouth 1 (one) time each day. sertraline (Zoloft) 50 MG tablet Take 3 tablets (150 mg) by mouth 1 (one) time each day. traZODone (Desyrel) 50 MG tablet Take 2 tablets (100 mg) by mouth at night if needed for sleep or depression. Ventolin HFA 108 (90 Base) MCG/ACT inhaler Inhale if needed for wheezing or shortness of breath. Vraylar 4.5 MG capsule No current facility-administered medications for this visit. (Other) ALLERGIES Allergies[1] PAST MEDICAL HISTORY Past Medical History[2] Surgical History[3] FAMILY HISTORY Family History[4] SOCIAL HISTORY Social History[5] GENERAL EXAM: General Exam: Neuro: Alert and Oriented x 3, normal mood and affect OPHTHALMIC EXAM: Base Eye Exam Visual Acuity (Snellen - Linear) Right Left Dist cc 20/125 -1 20/30 -2 Dist ph cc 20/125 NI Correction: Glasses Tonometry (Tonopen, 1:27 PM) Right Left Pressure 19 23 Pupils Pupils APD Right PERRL None Left PERRL None Neuro/Psych Oriented x3: Yes Mood/Affect: Normal Dilation Both eyes: 1% Tropicamide, 2.5% Phenylephrine @ 1:27 PM IMAGING AND PROCEDURES OCT, Retina - OU - Both Eyes Myopic fundus Staphyloma right eye (OD) Left eye (OS) -- dry OCT, Retina - OU - Both Eyes Myopic fundus Staphyloma right eye (OD) Left eye (OS) -- dry VISIT DIAGNOSES 1. NPDR (nonproliferative diabetic retinopathy) OCT, Retina - OU - Both Eyes ASSESSMENT AND PLAN: PVD OD Pathologic myopia OU - RD precautions given 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 type1 diabetes mellitus (CMS/HCC) - Stable Observe for now Recheck in 6 months - Plan: OCT, Retina - OU - Both Eyes, Stable Follow Choroidal neovascular membrane of both eyes - Not active. Return precautions provided. Follow Recheck in 6 months RTC 6 months Explained the diagnoses, plan, and follow up with the patient and they expressed understanding. Patient expressed understanding of the importance of proper follow up care. Follow up in about 6 months (around 08/01/2025). There are no Patient Instructions on file for this visit. Electronically signed by: Flex Rogers MD 02/01/2025 2:13 PM Tobacco Cessation Initiative: Tobacco Use: Medium Risk (02/01/2025) Patient History Smoking Tobacco Use: Former Smokeless Tobacco Use: Never Passive Exposure: Never The patient has been counseled on tobacco cessation: Not Applicable [1] Allergies Allergen Reactions Citalopram Vomiting [2] Past Medical History: Diagnosis Date Anxiety Bronchitis 03/16/23 Central auditory processing disorder Auditory processing disorder Conversions - Other Headache Degenerative myopia, bilateral Pathologic myopia, bilateral Hallucination Major depressive disorder, single episode, unspecified Depression Migraine without aura, intractable, without status migrainosus Intractable migraine without aura and without status migrainosus 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 type1 diabetes mellitus Nausea & vomiting 03/16/23 Obesity, unspecified Obesity Otitis media 03/16/23 Personal history of other diseases of the respiratory system History of asthma Personal history of other endocrine, nutritional and metabolic disease History of diabetes mellitus Retinal neovascularization, unspecified, unspecified eye 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 Sinusitis 03/16/23 Sore throat 03/16/23 Substance abuse Suicidal behavior Vitreous degeneration, bilateral PVD (posterior vitreous detachment), both eyes [3] Past Surgical History: Procedure Laterality Date CIRCUMCISION, PRIMARY N/A Elective Circumcision from [employer] TESTICLE SURGERY N/A Surgery Testis from [employer] [4] Family History Problem Relation Name Age of Onset Diabetes Mother Hypertension Mother Diabetes type II Mother Schizophrenia Father Asthma Father Breast cancer Mother's Sister Cancer Mother's Brother Schizophrenia Father's Brother Diabetes Maternal Grandmother Heart disease Maternal Grandmother Heart disease Maternal Grandfather Schizophrenia Paternal Grandmother [5] Social History Tobacco Use Smoking status: Former Current packs/day: 0.00 Average packs/day: 0.5 packs/day for 10.5 years (5.2 ttl pk-yrs) Types: Cigarettes Start date: 2012 Quit date: 11/2022 Years since quittin.2 Passive exposure: Never Smokeless tobacco: Never Vaping Use Vaping status: Former Substance Use Topics Alcohol use: Not Currently Comment: Alcoholic Drinks/day: Occasional alcohol use Drug use: Unknown Types: Marijuana Comment: Drug use: Marijuana documented in this encounter Plan of Treatment Upcoming Encounters Date Type Department Care Team (Late st Contact Info) Description 08/14/2025 3:45 PM EDT Office Visit [facility] [address] [place] [address] Flex Rogers MD [address] [phone] documented as of this encounter Procedures Procedure [...] eye (OD) Left eye (OS) -- dry Flex Rogers MD OPHTH TOMOGRAPHY Final Resu lt documented in this encounter Visit Diagnoses Diagnosis NPDR (nonproliferative diabetic retinopathy)- Primary documented in this encounter Additional Health Concerns Assessment Noted Time A fall risk assessment has been complete d for the patient 11/28/2024 9:31 AM EDT A Body Mass Index follow-up plan has been documented for the patient 02/01/2025 2:21 PM EDT documented as of this encounter Care Teams Hand Coke Drawer Relationship Specialty Start Date End Date Esteban Ya MD [address] [place] [address] PCP - General 09/20/20 documented as of this encounter
[2025-02-16 00:41] VITALS: BP 153/78; PULSE 97; RESP 17; TEMP 36.6; O2SAT 97; BMI 36.1
--- NOTE | 2025-02-16 00:50 | XR_ITS ---
PROCEDURE INFORMATION: Exam: XR Chest Exam date and time: 02/16/2025 12:53 AM Age: 24 years old Clinical indication: Cough TECHNIQUE: Imaging protocol: Radiologic exam of the chest. Views: 2 views. COMPARISON: CT ANGIO CHEST PE PROTOCOL 02/29/2024 7:35 PM FINDINGS: Lungs: Unremarkable. No consolidation. Pleural spaces: Unremarkable. No pleural effusion. No pneumothorax. Heart/Mediastinum: Unremarkable. No cardiomegaly. Vasculature: Unremarkable. Bones/joints: Unremarkable. IMPRESSION: No acute findings.
--- NOTE | 2025-02-16 00:50 | CT_ITS ---
PROCEDURE INFORMATION: Exam: CT Head Without Contrast Exam date and time: 02/16/2025 1:11 AM Age: 24 years old Clinical indication: Pain; Headache; Additional info: Migraine TECHNIQUE: Imaging protocol: Computed tomography of the head without contrast. Radiation optimization: All CT scans at this facility use at least one of these dose optimization techniques: automated exposure control; mA and/or kV adjustment per patient size (includes targeted exams where dose is matched to clinical indication); or iterative reconstruction. COMPARISON: CT CERVICAL SPINE WO CON 08/26/2024 6:00 PM FINDINGS: Brain: Normal. No hemorrhage. Unremarkable white matter. No mass effect. Cerebral ventricles: No ventriculomegaly. Paranasal sinuses: Visualized sinuses are unremarkable. No fluid levels. Mastoid air cells: Visualized mastoid air cells are well aerated. Orbital cavities: The globes are elongated bilaterally, right slightly greater than left, with scleral thinning posteriorly consistent with staphylomas. Bones: Unremarkable. No acute fracture. Soft tissues: Unremarkable. IMPRESSION: 1. No acute intracranial abnormality. 2. 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
--- OUTSIDE RECORDS SUMMARY | 2025-02-16 00:52 | XMS_ITS | Encounter Summary ---
Author Organization Healthcare Address [address] [place] [address] Care Team Providers Care Labor Crew Supervisor Name Role Phone Esteban Ya MD Primary Care Provider [phone] Encounter Details Date Type Department Care Team (Late Contact Info) Description 05/22/2024 Orders Only External Location [address] [place] [address] Provider, External Social History Tobacco Use Types [...] Description 08/14/2025 3:45 PM EDT Office Visit [facility] [address] [place] [address] Flex Rogers MD [address] [address] documented as of this encounter Procedures Procedure Name Priority Date/Time Associated Diagnosis Comments CT OUTSIDE IMAGES 05/22/2024 9:45 PM EST documented in this encounter Results * CT OUTSIDE IMAGES (05/22/2024 9:45 PM EST) Anatomical Region Laterality Modality Computed Tomogra phy 05/22/2024 9:45 PM EST us External Provider IMG CT PROCEDURES Final Result documented in this encounter Visit Diagnoses Not on filedocumented in this encounter Additional Health Concerns Assessment Noted Time A fall risk assessment has been complete d for the patient 02/03/2024 1:48 PM EDT A Body Mass Index follow-up plan has been documented for the patient 02/03/2024 3:34 PM EDT documented as of this encounter Care Teams Labor Crew Supervisor Relationship Specialty Start Date End Date Esteban Ya MD [address] [place] [address] PCP - General 09/20/20 documented as of this encounter
--- OUTSIDE RECORDS SUMMARY | 2025-02-16 00:52 | XMS_ITS | Encounter Summary ---
Author Organization Healthcare Address [address] [place] [address] Care Team Providers Care Office Professional Name Role Phone Esteban Ya MD Primary Care Provider [phone] Encounter Details Date Type Department Care Team (Late st Contact Info) Description 06/19/2024 Lab Requisition [facility] [address] [place] [address] Lida Quintero MD [address] [place] [phone] Routine general medical examination at a [...] Description 08/14/2025 3:45 PM EDT Office Visit [facility] [address] [place] [address] Flex Rogers MD [address] [address] documented as of this encounter Visit [...] documented as of this encounter Care Teams Office Professional Relationship Specialty Start Date End Date Esteban Ya MD [address] [place] [address] PCP - General 09/20/20 documented as of this encounter
--- OUTSIDE RECORDS SUMMARY | 2025-02-16 00:52 | XMS_ITS | Encounter Summary ---
Author Organization Healthcare Address [address] [place] [address] Care Team Providers Care Insurance Office Manager Name Role Phone Esteban Ya MD Primary Care Provider [phone] Encounter Details Date Type Department Care Team (Late Contact Info) Description 08/26/2024 Orders Only External Location [address] [place] [address] Provider, External Social History Tobacco Use Types [...] Description 08/14/2025 3:45 PM EDT Office Visit [facility] [address] [place] [address] Flex Rogers MD [address] [address] documented as of this encounter Procedures Procedure Name Priority Date/Time Associated Diagnosis Comments CT OUTSIDE IMAGES 08/26/2024 6:00 PM EDT documented in this encounter Results * CT OUTSIDE IMAGES (08/26/2024 6:00 PM EDT) Anatomical Region Laterality Modality Computed Tomogra phy 08/26/2024 6:00 PM EDT us External Provider IMG CT PROCEDURES Final [...] documented as of this encounter Care Teams Insurance Office Manager Relationship Specialty Start Date End Date Esteban Ya MD [address] [place] [address] PCP - General 09/20/20 documented as of this encounter
--- OUTSIDE RECORDS SUMMARY | 2025-02-16 00:52 | XMS_ITS | Clinical Summary ---
Author Organization [facility] Address [address] [place] [address] Care Team Providers Care Marketing Compliance Manager Name Role Phone Esteban Ya MD Primary Care Provider [phone] Allergies Active Allergy Reactions Criticality Noted Date [...] of breath. 3 Active ergocalciferol 1.25 MG (73782 UT) capsule Take 1 capsule (50,000 Units) by mouth 1 (one) time per week. 3 Active sertraline (Zoloft) 50 MG tablet Take 3 tablets (150 mg) by mouth 1 (one) time each day. 4 Active OXcarbazepine (Trileptal) 300 MG tablet Take 1 tablet (300 mg) by mouth 2 (two) times a day. 4 Active Vraylar 4.5 MG capsule 4 Active DULoxetine (Cymbalta) [address] capsule TAKE 1 CAPSULE BY MOUTH ONCE DAILY TAKE WITH 60MG DAILY 5 Active paliperidone (Invega) 3 MG 24 hr tablet 5 Active lisinopril-hydr oCHLOROthiazide 20-12.5 MG tablet Take 1 tablet by mouth daily. 5 Active haloperidol (Haldol) 10 MG tablet Take 1 tablet by mouth 2 times a day. 5 Active divalproex (Depakote) [address] tablet TAKE 1 TABLET BY MOUTH AT BEDTIME NIGHTLY TAKE WITH DEPAKOTE 500MG AT BEDTIME 5 Active benztropine (Cogentin) 0.5 MG tablet Take 1 tablet by mouth 2 times a day. 5 Active LORazepam (Ativan) 1 MG tablet Take 1 tablet by mouth daily. 5 Active Melatonin 5 MG tablet tablet TAKE 1 TABLET BY MOUTH ONCE DAILY AT BEDTIME NEEDED FOR INSOMNIA 5 Active omeprazole (PriLOSEC) [address] capsule Take 1 capsule by mouth daily. 5 Active Farxiga 5 MG tablet Take 1 tablet by mouth daily. 5 Active lamoTRIgine (LaMICtal) 25 MG tablet 5 Active Active Problems Problem Noted Date Diagnosed Date Anxiety 03/16/2023 03/16/2023 Atypical chest pain 03/16/2023 03/16/2023 Chest wall pain 03/16/2023 03/16/2023 Costochondritis 03/16/2023 03/16/2023 Diabetes 03/16/2023 03/16/2023 Difficult bowel movements 03/16/20232022 Dizziness 03/16/2023 03/16/2023 GERD with esophagitis 03/16/2023 03/16/2023 HTN (hypertension) 03/16/2023 03/16/2023 Impacted ear wax 03/16/2023 03/16/2023 Low back pain 03/16/2023 03/16/2023 Lumbar strain 03/16/2023 03/16/2023 Non-compliance 03/16/2023 03/16/2023 Poison isaias 03/16/2023 03/16/2023 Preseptal cellulitis of right eye 03/16/2023 03/16/2023 Puncture wound of foot without foreign body 11/202203/16/2023 Rectal bleeding 03/16/2023 03/16/2023 Schizophrenia 03/16/2023 03/16/2023 SOB (shortness of breath) 03/16/20232022 Depression 12/02/2016 Intractable migraine without aura and without status migrainosus 12/02/2016 Obesity 12/02/2016 Headache 12/25/2015 Resolved Problems Problem Noted Date Diagnosed Date Resolved Date Acute gastroenteritis 03/16/2023 03/16/20232024 Acute maxillary sinusitis 03/16/2023 03/16/2023 Bronchitis 03/16/2023 03/16/2023 01/28/2025 Colitis 03/16/2023 03/16/2023 01/28/2025 Insomnia 03/16/2023 03/16/2023 01/28/2025 Nausea & vomiting 03/16/2023 03/16/2023 01/28/2025 Otitis media 03/16/2023 03/16/2023 01/28/2025 Overweight 03/16/2023 03/16/2023 01/28/2025 Sinusitis 03/16/2023 03/16/2023 01/28/2025 Sore throat 03/16/2023 03/16/2023 01/28/2025 Encounters Date Type Department Care Team Description 02/01/2025 1:30 PM EDT Office Visit [facility] [address] [place] [address] Flex Rogers MD NPDR (nonproliferative diabetic retinopathy) (Primary Dx) 02/01/2025 7:55 AM EDT Ancillary Procedure [facility] [address] [place] [address] 02/01/2025 Travel 11/28/2024 8:45 AM EDT - 11/28/2024 11:59 PM EDT Hospital Encounter [facility] [address], [address] [place] [phone] Thoracic radiculopathy; Acute bilateral low back pain with bilateral sciatica Discharge Disposition: Home or Self Care 11/28/2024 8:45 AM EDT Consult [facility] [address], [address] [place] [address] Janie Liz MD Thoracic radiculopathy (Primary Dx); Acute bilateral low back pain with bilateral sciatica; Lumbar radiculopathy; Paresthesias; Myelopathy (CMS/HCC) 11/28/2024 8:44 AM EDT Hospital Encounter [facility] [address], [address] [place] [address] Acute bilateral low back pain with bilateral sciatica Discharge Disposition: Home or Self Care 11/28/2024 Travel from Last 3 Months Immunizations Immunization [...] Sign Reading Time Taken Comments Blood Pressure 114/78 11/28/2024 9:18 AM EDT Pulse 58 04/17/2022 5:35 AM EST Temperature 37.2 C (98.9 F) 04/16/2022 5:51 PM EST Respiratory Rate 16 04/16/2022 5:51 PM EST Oxygen Saturation 94% 04/17/2022 5:35 AM EST Inhaled Oxygen Concentration - - Weight 132 kg (291 lb 14.2 oz) 11/28/2024 9:18 A M EDT Height 195.6 cm (6' 5 ) 11/28/2024 9:18 AM EDT Body Mass Index 34.61 11/28/2024 9:18 AM EDT Plan of Treatment Upcoming Encounters Date Type Department Care Team (Late st Contact Info) Description 08/14/2025 3:45 PM EDT Office Visit [facility] [address] [place] [address] Flex Rogers MD [address] [address] Health Maintenance Due Date Last Done Comments [facility]-Depression Screening 1998 [facility]-HIV Screening 1998 [facility]-Hepatitis C Screening 1998 [facility]-Infant/Child/Adol SDOH Screenings 1998 Diabetes: Dental Exam 2008 [...] 08/27/2019 08/26/2009 [facility]-Diabetes: Hemoglobin A1C 10/14/2022 04/16/2022 [id number] Vaccine (3 - season) 2025 02/08/2021, 01/12/2021 [facility]-Influenza Vaccine (#1) 2025 02/25/2018 [facility]-Zoster Vaccines (1 of 2) 2048 [facility]-Obesity Intervention Completed 025, 11/28/2024, 08/03/2024, Additional history exists [facility]-HIB Vaccines Aged Out [...] 2:12 PM EDT NPDR (nonproliferative diabetic retinopathy) XR SCOLIOSIS ENTIRE SPINE 2 OR 3 VIEWS Routine 11/28/2024 9:13 AM EDT Thoracic radiculopathy Acute bilateral low back pain with bilateral sciatica XR LUMBAR SPINE 4 VIEWS TO INCLUDE FLEXION EXTENSION Routine 11/28/2024 9:13 AM EDT Acute bilateral low back pain with bilateral sciatica HEMOGLOBIN A1C STAT 04/16/2022 1:43 AM EST from Last 3 Months or Most Recently Relevant to Health Maintenance Results * OCT, Retina - OU - Both Eyes (02/01/2025 2:12 PM EDT) Anatomical Region Laterality Modality Head Optical Coherenc e Tomography Narrative 02/01/2025 2:12 PM EDT Myopic fundus Staphyloma right eye (OD) Left eye (OS) -- dry us Flex Rogers MD OPHTH TOMOGRAPHY Final Resu lt * XR Scoliosis Entire Spine 2 or 3 Views (11/28/2024 9:13 AM EDT) Anatomical Region Laterality Modality Spine Digital Radiogra phy Impressions 11/28/2024 9:43 AM EDT No acute findings in the lumbar spine. No evidence of degenerative instability. Mild loss of intervertebral disc height at L5-S1. No acute findings in the visualized portions of the cervical and thoracic spine. Degenerative changes as described above. CRITICAL RESULT: No. COMMUNICATION: Per this written report. By electronically signing this report, I, the attending physician, attest that I have personally reviewed the images/data for the above examination(s) and agree with the final edited report. Drafted by Gaetano Paige MD on 11/28/2024 9:24 AM Final report signed by Meaghan Hsieh MD on 11/28/2024 9:43 AM Narrative 11/28/2024 9:43 AM EDT CLINICAL INDICATION: back pain TECHNIQUE: XR LUMBAR SPINE 4 VIEWS TO INCLUDE FLEXION EXTENSION, XR SCOLIOSIS ENTIRE SPINE 2 OR 3 VIEWS COMPARISON: Outside MRI thoracic spine 07/12/2024 FINDINGS: Lumbar spine: There are 5 lumbar type vertebrae. Grade 1 retrolisthesis of L1 on L2, and minimal retrolisthesis of L2 on L3, which are unchanged during flexion/extension maneuvers. Mild anterolisthesis of L5 on S1, which is unchanged during flexion/extension maneuvers. No fracture or dislocation. Mild loss of intervertebral disc height at L5-S1. Minimal multilevel endplate degenerative change. Multilevel facet arthropathy. No significant soft tissue abnormality. Scoliosis series: Cervical spine is poorly visualized on the lateral view due to exam technique, though is likely straightened in alignment. C1-C4 is probably visualized on the frontal view due to overlying mandible. Likely mild uncovertebral hypertrophy and facet arthropathy at C5-C7, though visualization is limited due to large samyq-fi-onpk. Superior portion of the thoracic spine is poorly visualized on lateral view. Grossly normal thoracic kyphosis without significant listhesis. Multilevel ghds-pq-atqjuicw loss of intervertebral disc height with associated endplate degenerative changes at the mid and distal thoracic spine. No spondylolisthesis in the mid and distal thoracic spine. The lungs are grossly clear. No significant soft tissue abnormality. Procedure Note Meaghan Hsieh MD - 11/28/2024 CLINICAL INDICATION: back pain TECHNIQUE: XR LUMBAR SPINE 4 VIEWS TO INCLUDE FLEXION EXTENSION, XR SCOLIOSIS ENTIRESPINE 2 OR 3 VIEWS COMPARISON: Outside MRI thoracic spine 07/12/2024 FINDINGS: Lumbar spine: There are 5 lumbar type vertebrae. Grade 1 retrolisthesis ofL1 on L2, and minimal retrolisthesis of L2 on L3, which are unchangedduring flexion/extension maneuvers. Mild anterolisthesis of L5 on S1,which is unchanged during flexion/extension maneuvers. No fracture ordislocation. Mild loss of intervertebral disc height at L5-S1. Minimalmultilevel endplate degenerative change. Multilevel facet arthropathy. Nosignificant soft tissue abnormality. Scoliosis series: Cervical spine is poorly visualized on the lateral view due to examtechnique, though is likely straightened in alignment. C1-C4 is probablyvisualized on the frontal view due to overlying mandible. Likely milduncovertebral hypertrophy and facet arthropathy at C5-C7, thoughvisualization is limited due to large guizo-fj-znyl. Superior portion of the thoracic spine is poorly visualized on lateralview. Grossly normal thoracic kyphosis without significant listhesis.Multilevel orsg-ir-yivyyjtt loss of intervertebral disc height withassociated endplate degenerative changes at the mid and distal thoracicspine. No spondylolisthesis in the mid and distal thoracic spine. The lungs are grossly clear. No significant soft tissue abnormality. IMPRESSION: No acute findings in the lumbar spine. No evidence of degenerativeinstability. Mild loss of intervertebral disc height at L5-S1. No acute findings in the visualized portions of the cervical and thoracicspine. Degenerative changes as described above. CRITICAL RESULT: No. COMMUNICATION: Per this written report. By electronically signing this report, I, the attending physician, attestthat I have personally reviewed the images/data for the aboveexamination(s) and agree with the final edited report. Drafted by Gaetano Paige MD on 11/28/2024 9:24 AM Final report signed by Meaghan Hsieh MD on 11/28/2024 9:43 AM us Samantha Almeida APPRENTICE JOCKEY, DNP IMG XR PROCEDURES Amy l Result * XR Lumbar Spine 4+ Views w Flexion Extension (11/28/2024 9:13 AM EDT) Anatomical Region Laterality Modality Spine, L-spine Digital Radiogra phy Impressions 11/28/2024 9:43 AM EDT No acute findings in the lumbar spine. No evidence of degenerative instability. Mild loss of intervertebral disc height at L5-S1. No acute findings in the visualized portions of the cervical and thoracic spine. Degenerative changes as described above. CRITICAL RESULT: No. COMMUNICATION: Per this written report. By electronically signing this report, I, the attending physician, attest that I have personally reviewed the images/data for the above examination(s) and agree with the final edited report. Drafted by Gaetano Paige MD on 11/28/2024 9:24 AM Final report signed by Meaghan Hsieh MD on 11/28/2024 9:43 AM Narrative 11/28/2024 9:43 AM EDT CLINICAL INDICATION: back pain TECHNIQUE: XR LUMBAR SPINE 4 VIEWS TO INCLUDE FLEXION EXTENSION, XR SCOLIOSIS ENTIRE SPINE 2 OR 3 VIEWS COMPARISON: Outside MRI thoracic spine 07/12/2024 FINDINGS: Lumbar spine: There are 5 lumbar type vertebrae. Grade 1 retrolisthesis of L1 on L2, and minimal retrolisthesis of L2 on L3, which are unchanged during flexion/extension maneuvers. Mild anterolisthesis of L5 on S1, which is unchanged during flexion/extension maneuvers. No fracture or dislocation. Mild loss of intervertebral disc height at L5-S1. Minimal multilevel endplate degenerative change. Multilevel facet arthropathy. No significant soft tissue abnormality. Scoliosis series: Cervical spine is poorly visualized on the lateral view due to exam technique, though is likely straightened in alignment. C1-C4 is probably visualized on the frontal view due to overlying mandible. Likely mild uncovertebral hypertrophy and facet arthropathy at C5-C7, though visualization is limited due to large asznt-xp-icyb. Superior portion of the thoracic spine is poorly visualized on lateral view. Grossly normal thoracic kyphosis without significant listhesis. Multilevel mtvu-pz-jywklecm loss of intervertebral disc height with associated endplate degenerative changes at the mid and distal thoracic spine. No spondylolisthesis in the mid and distal thoracic spine. The lungs are grossly clear. No significant soft tissue abnormality. Procedure Note Meaghan Hsieh MD - 11/28/2024 CLINICAL INDICATION: back pain TECHNIQUE: XR LUMBAR SPINE 4 VIEWS TO INCLUDE FLEXION EXTENSION, XR SCOLIOSIS ENTIRESPINE 2 OR 3 VIEWS COMPARISON: Outside MRI thoracic spine 07/12/2024 FINDINGS: Lumbar spine: There are 5 lumbar type vertebrae. Grade 1 retrolisthesis ofL1 on L2, and minimal retrolisthesis of L2 on L3, which are unchangedduring flexion/extension maneuvers. Mild anterolisthesis of L5 on S1,which is unchanged during flexion/extension maneuvers. No fracture ordislocation. Mild loss of intervertebral disc height at L5-S1. Minimalmultilevel endplate degenerative change. Multilevel facet arthropathy. Nosignificant soft tissue abnormality. Scoliosis series: Cervical spine is poorly visualized on the lateral view due to examtechnique, though is likely straightened in alignment. C1-C4 is probablyvisualized on the frontal view due to overlying mandible. Likely milduncovertebral hypertrophy and facet arthropathy at C5-C7, thoughvisualization is limited due to large pzvgz-qx-npuz. Superior portion of the thoracic spine is poorly visualized on lateralview. Grossly normal thoracic kyphosis without significant listhesis.Multilevel abbp-mn-jaxifnnw loss of intervertebral disc height withassociated endplate degenerative changes at the mid and distal thoracicspine. No spondylolisthesis in the mid and distal thoracic spine. The lungs are grossly clear. No significant soft tissue abnormality. IMPRESSION: No acute findings in the lumbar spine. No evidence of degenerativeinstability. Mild loss of intervertebral disc height at L5-S1. No acute findings in the visualized portions of the cervical and thoracicspine. Degenerative changes as described above. CRITICAL RESULT: No. COMMUNICATION: Per this written report. By electronically signing this report, I, the attending physician, ken I have personally reviewed the images/data for the aboveexamination(s) and agree with the final edited report. Drafted by Gaetano Paige MD on 11/28/2024 9:24 AM Final report signed by Meagahn Hsieh MD on 11/28/2024 9:43 AM us Samantha Almeida APPRENTICE JOCKEY, DNP IMG XR PROCEDURES Amy l Result * (ABNORMAL) Hemoglobin A1c (04/16/2022 1:43 AM [...] Adults <6.0% Children and Adolescents <7.5% Source: [place] [employer]. Standards of medical care in diabetes,2017. Diabetes Care.2017:40 (suppl 1):S1-S135. HbA1c assay performed by an ion-exchange chromatography method that is certified traceable to the DCCT. us Tita Cochran MD LAB BLOOD ORDERABLES Final Re sult [facility] [address] [place] [address] from Last 3 Months or Most Recently Relevant to Health Maintenance Insurance [employer] [facility] MEDICAID Care Teams Marketing Compliance Manager Relationship Specialty Start Date End Date Esteban Ya MD [address] [place] [address] PCP - General 09/20/20
--- OUTSIDE RECORDS SUMMARY | 2025-02-16 00:52 | XMS_ITS | Encounter Summary ---
Author Organization Healthcare Address [address] [place] [address] Care Team Providers Care Helicopter Crew Chief Name Role Phone Esteban Ya MD Primary Care Provider [phone] Encounter Details Date Type Department Care Team (Late Contact Info) Description 07/12/2024 Orders Only External Location [address] [place] [address] Provider, External Social History Tobacco Use Types [...] Description 08/14/2025 3:45 PM EDT Office Visit [facility] [address] [place] [address] Flex Rogers MD [address] [address] documented as of this encounter [...] documented as of this encounter Care Teams Helicopter Crew Chief Relationship Specialty Start Date End Date Esteban Ya MD [address] [place] [address] PCP - General 09/20/20 documented as of this encounter
--- OUTSIDE RECORDS SUMMARY | 2025-02-16 00:52 | XMS_ITS | Encounter Summary ---
Author Organization Healthcare Address [address] [place] [address] Care Team Providers Care Taffy Candy Maker Name Role Phone Esteban Ya MD Primary Care Provider [phone] Encounter Details Date Type Department Care Team (Late st Contact Info) Description 06/20/2024 Lab Requisition [facility] [address] [place] [address] Lida Quintero MD [address] [place] [phone] Routine general medical examination at a [...] Description 08/14/2025 3:45 PM EDT Office Visit [facility] [address] [place] [address] Flex Rogers MD [address] [address] documented as of this encounter [...] documented as of this encounter Care Teams Taffy Candy Maker Relationship Specialty Start Date End Date Esteban Ya MD [address] [place] [address] PCP - General 09/20/20 documented as of this encounter
--- OUTSIDE RECORDS SUMMARY | 2025-02-16 00:52 | XMS_ITS | Encounter Summary ---
Author Organization [facility] Address [address] [place] [address] Care Team Providers Care Toll Repairer Central Office Name Role Phone Esteban Ya MD Primary Care Provider [phone] Encounter Details Date Type Department Care Team (Latest Contact Info) Description 02/01/2025 Travel Social History Tobacco Use Types Packs/Day Years [...] Description 08/14/2025 3:45 PM EDT Office Visit [facility] [address] [facility] [place] [address] Flex Rogers MD [address] [facility] [place] [phone] documented as of this encounter Visit Diagnoses Not on filedocumented in this encounter Additional Health Concerns Assessment Noted Time A fall risk assessment has been complete d for the patient 11/28/2024 9:31 AM EDT A Body Mass Index follow-up plan has been documented for the patient 02/01/2025 2:21 PM EDT documented as of this encounter Care Teams Toll Repairer Central Office Relationship Specialty Start Date End Date Esteban Ya MD [address] [phone] PCP - General 09/20/20 documented as of this encounter
[2025-02-16 01:00] VITALS: BP 134/95; PULSE 85; O2SAT 96
--- NOTE | 2025-02-16 01:00 | ECG_ITS ---
APPROVED REPORT Exam: Resting ECG HR:82 bpm ECG Measurements Heart Rate 82 AXES WI 147 P 34 QRSd 92 QRS -8 QT 350 T 7 QTc 388 Conclusion SINUS RHYTHM WITH MARKED SINUS ARRHYTHMIA MODERATE VOLTAGE CRITERIA FOR LVH, CONSIDER NORMAL VARIANT [MEETS CRITERIA IN ONE OF: R(aVL), S(V1), R(V5), R(V5/V6)+S(V1)] No STEMI Electronically signed by : DELLA FARIAS, 02/16/2025 07:57:50
[2025-02-16 01:14] LABS: Hematocrit 45.9 % (42.0-52.0); Hemoglobin 15.2 g/dL (14.1-18.0); Immature Granulocytes % 0.3 %; Mean Corpuscular HGB Conc 33.1 g/dL (31.8-35.4); Mean Corpuscular Hemoglobin 27.6 pg (27.0-31.2); Mean Corpuscular Volume 83.3 fl (80-94); Nucleated Red Blood Cells % 0 %; Platelet Count 263 K/mm3 (142-424); Red Blood Count 5.51 M/mm3 (4.60-6.20); Red Cell Distribution Width-SD 39.4 fL; White Blood Count 11.9 K/mm3 (4.8-10.8)
[2025-02-16 01:25] LABS: Alanine Aminotransferase 53 U/L (12-78); Albumin Level 4.6 g/dl (3.5-5.0); Albumin/Globulin Ratio 1.4 (1.1-1.8); Alkaline Phosphatase 163 U/L (38-126); Anion Gap 17.5 mEq/L (5-15); Aspartate Amino Transferase 37 U/L (17-59); Bilirubin,Total 0.8 mg/dl (0.2-1.3); Blood Urea Nitrogen 9 mg/dl (9-20); Calcium 9.7 mg/dl (8.4-10.2); Carbon Dioxide 25 mmol/L (22.0-30.0); Chloride 97 mmol/L (98-107); Creatinine Clearance Estimated 313 mL/min (50-200); Creatinine,Serum 0.70 mg/dl (0.66-1.25); Estimated Glomerular Filt Rate 136 ml/min (>60); GFR (African American) 165 ML/MIN (>60); Globulin 3.2 g/dL (1.3-3.2); Glucose 305 mg/dl (74-100); Potassium 3.5 mmoL/L (3.5-5.1); Sodium 136 mmol/L (136-145); Total Protein,Serum 7.8 g/dl (6.3-8.2)
[2025-02-16 01:29] LABS: D-Dimer 0.63 ug/mL (0.0-0.5)
[2025-02-16 01:30] VITALS: BP 142/92; PULSE 98; O2SAT 95
--- NOTE | 2025-02-16 01:35 | HMH.EDGENADL ---
Discharge Plan Disposition Patient Disposition: Home, Self-Care Condition: Good Prescriptions Prescriptions: New ondansetron 4 mg tablet,disintegrating 4 mg PO Q6H PRN (Reason: nausea and vomiting) Qty: 5 0RF No Action Farxiga 10 mg tablet 10 mg PO DAILY Qty: 90 4RF albuterol sulfate [Proventil HFA] 90 mcg/actuation HFA aerosol inhaler 2 puff inhalation Q6H Qty: 6.7 0RF melatonin 5 mg tablet 5 mg PO Patient Comments: TAKE 1 TABLET BY MOUTH ONCE DAILY AT BEDTIME NEEDED FOR INSOMNIA omeprazole 20 mg capsule,delayed release(DR/EC) 20 mg PO DAILY Qty: 90 2RF duloxetine 60 mg capsule,delayed release(DR/EC) 60 mg PO DAILY Qty: 30 2RF lamotrigine [Lamictal] 25 mg tablet 50 mg PO DAILY Qty: 60 2RF Invega Sustenna 234 mg/1.5 mL syringe 234 mg IM Q30D Qty: 1.5 2RF bisoprolol fumarate 5 mg tablet 5 mg PO DAILY Qty: 30 2RF lisinopril-hydrochlorothiazide 20-12.5 mg tablet 1 tab PO DAILY Qty: 90 0RF Referrals Follow up/Referrals: Audelia Valenzuela APRN [Primary Care Provider, Family Practice] - See instructions Referral Note: Reevaluate headache, blood glucose, lymphocytosis, right upper quadrant abdominal pain Activity Restrictions/Add. Instructions Additional Instructions/Restrictions: You were evaluated in the ER and are believed to be appropriate for discharge at this time. Continue taking your home medications as prescribed. Drink plenty of water, Gatorade, Pedialyte to stay hydrated which will help with headache. Take Tylenol or ibuprofen if needed for pain, do not exceed the recommended dose on the bottle. Drink water and eat a small snack each time you take these medications to avoid side effects. Do not take ibuprofen for more than 1 week straight. Call your primary care doctor first thing this morning and make an appointment for reevaluation in the next 1 to 2 days. She should recheck your headache symptoms, recheck your blood work including your lymphocytes, recheck your right sided abdominal pain, as well as follow-up on your high blood sugar and further discuss your diabetes. If you continue having headache problems she may want to refer you to neurology as well. As discussed, call your psychiatrist and discussed the possibility of your symptoms being related to a medication side effect. Return to the ER with any new, worsening, or otherwise concerning symptoms. Clinical Impressions Clinical Impression: Headache, Nausea & vomiting, Lymphocytosis, Abdominal pain, RUQ (right upper quadrant) Print Language Print Language: Namibian Discharge ED Provider: Nicolasa Javier General Adult HPI General Chief complaint: Headache Stated complaint: migraine Time Seen by Provider: 02/16/25 00:52 Mode of Arrival: Ambulatory Description of Symptoms (Recalled from ER Triage Doc. by RN): Patient states he has had a headache for over a week. states 9/10 pain, states pain is generalized. States today he coughed up blood and thought it was related to the migraine: patient has not had hematemsis since the occurance. States it has happened before. History of Present Illness HPI narrative: 24-year-old male with history of anxiety, depression, mood instability, schizophrenia presents to the ER complaining of 2 weeks of gradually progressive headache. Patient reports he was recently started on a new injection that starts with an L and is supposed to stop my hallucinations . He reports his first treatment with this was on 02/04 and since that time he has had gradually worsening headache that feels like pressure throughout the head and worse behind the eyes. He does report sensitivity to sounds and lights. He does state hallucinations are improved. He states he has had some nausea and a few episodes of emesis with his gradually worsening headache. He states he has taken ibuprofen a few times without improvement. Patient reports tonight he had nausea from the headache and had an episode of emesis that contained a small amount of blood. On questioning he specifically describes the vomit as blood-streaked, not frankly bloody. Nursing had received report that he coughed up blood but patient states he is not coughing and has not coughed up blood but that it was slightly blood-streaked vomit and this only happened once. He does report mild epigastric/right upper quadrant pain that he states is better with eating. He is not having any chest pain or difficulty breathing, no cough or congestion, no numbness, tingling, or weakness. Patient denies suicidal or homicidal ideation. He states he is taking all of his home medications as prescribed. No vision changes, no ringing in the ears, no fevers or chills, no other complaints or concerns at this time. No history of abdominal surgeries. Related Data Home Medications ?Medication ?Instructions ?Recorded ?Confirmed melatonin 5 mg tablet 5 mg PO 09/04/24 02/05/25 Previous Rx's ?Medication ?Instructions ?Recorded albuterol sulfate 90 mcg/actuation 2 puff inhalation Q6H #6.7 grams 03/29/23 aerosol inhaler (Proventil HFA) bisoprolol fumarate 5 mg tablet 5 mg PO DAILY #30 tabs 07/24/24 lisinopril 20 1 tab PO DAILY #90 tabs 07/24/24 mg-hydrochlorothiazide 12.5 mg tablet omeprazole 20 mg capsule,delayed 20 mg PO DAILY #90 caps 09/04/24 release dapagliflozin propanediol 10 mg 10 mg PO DAILY #90 tabs 09/25/24 tablet (Farxiga) duloxetine 60 mg capsule,delayed 60 mg PO DAILY #30 caps 01/29/25 release lamotrigine 25 mg tablet (Lamictal) 50 mg (2 x 25 mg) PO DAILY #60 tabs 02/05/25 paliperidone palmitate 234 mg/1.5 234 mg (1.5 mL) IM Q30D #1.5 mL 02/05/25 mL intramuscular syringe (Invega Sustenna) ondansetron 4 mg disintegrating 4 mg PO Q6H PRN nausea and 02/16/25 tablet vomiting #5 tabs Allergies Allergy/AdvReac Type Severity Reaction Status Date / Time citalopram AdvReac Intermediate Vomiting Verified 02/05/25 15:27 [facility] Disclaimer: The information contained in this section may have been updated after the patient was seen, as this information can be updated by other users. Medical History Diabetes Dyspnea Major depressive disorder Bronchitis Sinusitis Insomnia Schizophrenia Dizziness SOB (shortness of breath) GERD with esophagitis Surgical History History of wisdom tooth extraction Family History Other Diabetes Heart attack Substance abuse Social History Smoking Status: Current every day smoker tobacco type: e-cigarettes alcohol intake: current alcohol intake frequency: other substance use type: denies use and marijuana current occupational status: unemployed Travel in the last 8 weeks?: None household members: family housing: house number of children: 0 caffeine: Yes Have you lived/traveled outside US in past 30 days?: No Contact w/someone who lives/traveled outside US past 30 days?: No Exposure to someone with infectious disease in past 14 days?: No Do you have a fever (greater than 100.4 F or 38 C)?: No Have you tested positive for COVID-19?: No Exposed to someone with COVID-19 in past 14 days?: No Do you have a sore throat?: No Do you have a cough?: No Do you have any weakness?: No Do you have any diarrhea?: No Are you experiencing any unusual bleeding?: No Do you have any muscle aches/pain?: No Do you have any abdominal pain?: No Are you experiencing loss of taste or smell?: No Other Medical History Have you received the Flu Vaccine for this season: No Have you received the Pneumonia Vaccine: No ROS Obtained: Yes Systems reviewed as appropriate & no additional complaints except as documented Per HPI Physical Exam General General appearance: alert and in no apparent distress Head Head exam: atraumatic and normocephalic Eye Eye exam: Present PERRL and EOMI; Absent conjunctival redness or nystagmus ENT ENT exam: Present mucous membranes moist and mucous membranes dry Neck Neck exam: Present normal inspection and full ROM Chest Chest inspection: Present symmetric chest wall rise Respiratory Respiratory exam: Present normal lung sounds bilaterally; Absent respiratory distress, wheezes or stridor Cardiovascular Cardiovascular exam: Present regular rate and normal rhythm Abdominal Exam Abdominal exam: Present soft and tenderness (Very mild right upper quadrant and epigastric); Absent distention, guarding, rebound or rigidity Extremities Exam Extremities exam: Present full ROM and normal capillary refill; Absent tenderness or edema Neurological Exam Neurological exam: Present alert, oriented X3 and other (No cerebellar findings); Absent motor sensory deficit Psychiatric Psychiatric exam: Present normal affect and normal mood; Absent homicidal ideation or suicidal ideation Skin Skin exam: Present warm and dry Medical Decision Making Medical Records Medical records reviewed: Yes I reviewed the patient's medical records. Screening: Per USPSTF and CDC recommendations, given the prevalence of disease in our region, it is our hospital?s policy to screen for HIV and viral Hepatitis for all patients aged 18 and over and those with ongoing risk factors. [place] Inquiry Pt receiving controlled substance: No Vital Signs: 02/16/25 00:41 02/16/25 01:00 02/16/25 01:30 Temperature 97.8 F Temperature Source Oral Pulse Rate 85 98 H Pulse Rate [Right] 97 H Respiratory Rate 17 Blood Pressure 134/95 H 142/92 H Blood Pressure [Right Radial Artery] 153/78 H Blood Pressure Mean [Right Radial Artery] 103 02 Sat by Pulse Oximetry 97 96 95 Oxygen Delivery Method Room Air 02/16/25 02:00 Temperature Temperature Source Pulse Rate 101 H Pulse Rate [Right] Respiratory Rate Blood Pressure 145/98 H Blood Pressure [Right Radial Artery] Blood Pressure Mean [Right Radial Artery] 02 Sat by Pulse Oximetry 95 Oxygen Delivery Method Lab Data Lab Results 02/16/25 00:28: Acetone Level None detected 02/16/25 00:46: WBC 11.9 H, RBC 5.51, Hgb 15.2, Hct 45.9, MCV 83.3, MCH 27.6, MCHC 33.1, RDW 13.1, Plt Count 263, MPV 9.2, Neut % (Auto) 43.5, Lymph % (Auto) 50.3 H, Marin % (Auto) 3.9, Eos % (Auto) 1.6, Baso % (Auto) 0.4, Neut # (Auto) 5.2, Lymph # (Auto) 6.0 H, Marin # (Auto) 0.5, Eos # (Auto) 0.2, Baso # (Auto) 0.1, Total Counted 100, Neutrophils % (Manual) 40 L, Lymphocytes % (Manual) 58 H, Monocytes % (Manual) 1 L, Eosinophils % (Manual) 1, Platelet Estimate Normal, RBC Morphology Normal, D-Dimer 0.63 H, Sodium 136, Potassium 3.5, Chloride 97 L, Carbon Dioxide 25, Anion Gap 17.5 H, BUN 9, Creatinine 0.70, Estimated Creat Clear 313 H, Estimated GFR 136, Est GFR ( Amer) 165, Glucose 305 H, Calcium 9.7, Magnesium 1.8, Total Bilirubin 0.8, AST 37, ALT 53, Alkaline Phosphatase 163 H, Troponin I < 0.01, Total Protein 7.8, Albumin 4.6, Globulin 3.2, Albumin/Globulin Ratio 1.4, Lipase 135 02/16/25 00:46 02/16/25 00:46 Orders (Tests/Meds): ED MEDICATIONS Generic Name Dose Route Start Last Admin Trade Name Carlito PRN Reason Stop Dose Admin Sodium Chloride 10 ml 02/16/25 02:24 02/16/25 02:24 Sodium Chloride 0.9% 10ml Syr (Rad Only) IV 03/18/25 02:23 10 ml NEEDED PRN Administration Maintain IV Site Discontinued Medications Generic Name Dose Route Start Last Admin Trade Name Carlito PRN Reason Stop Dose Admin Acetaminophen 1,000 mg 02/16/25 01:34 02/16/25 01:42 Acetaminophen 500mg Tab PO 02/16/25 01:35 1,000 mg ONCE ONE Administration Diphenhydramine HCl 50 mg 02/16/25 01:34 02/16/25 01:42 Diphenhydramine 50mg/Ml Vial IV 02/16/25 01:35 50 mg ONCE ONE Administration Lactated Ringer's 1,000 mls @ 999 mls/hr 02/16/25 01:34 02/16/25 01:42 Lactated Ringer's 1000 Ml Bag IV 02/16/25 02:34 999 mls/hr .Q1H1M ONE Administration Iopamidol 75 ml 02/16/25 02:24 02/16/25 02:24 Iopamidol-370 (76%);100ml Bottle IV 02/16/25 02:25 75 ml ONCE ONE Administration Ketorolac Tromethamine 30 mg 02/16/25 01:34 02/16/25 01:42 Ketorolac 30mg/Ml Vial IV 02/16/25 01:35 30 mg ONCE ONE Administration Prochlorperazine Maleate 10 mg 02/16/25 01:34 02/16/25 01:42 Prochlorperazine 10mg Tablet PO 02/16/25 01:35 10 mg ONCE ONE Administration ORDERS Category Date Time Status CT abdomen pelvis w con Stat Cat Scan 02/16/25 02:[address] head/brain wo con Stat Cat Scan 02/16/25 00:50 Completed CXR 2 view (NOT portable) [XR chest 2V] Stat Exams 02/16/25 00:50 Completed POCUS Point of Care (ER Only) Stat Exams 02/16/25 01:34 Completed Acetone, Serum (Rapid) Stat Lab 02/16/25 00:28 Completed CBC w/Auto Diff [Complete Blood Count Auto Diff] Stat Lab 02/16/25 00:46 Completed CMP [Comprehensive Metabolic Panel] Stat Lab 02/16/25 00:46 Completed D-Dimer Stat Lab 02/16/25 00:46 Completed Lipase Stat Lab 02/16/25 00:46 Completed Magnesium Stat Lab 02/16/25 00:46 Completed Trop I [Troponin I] Stat Lab 02/16/25 00:46 Completed Troponin I Q3H Lab 02/16/25 04:00 Ordered Troponin I Q3H Lab 02/16/25 07:00 Ordered ECG Request Stat Y 02/16/25 00:50 Ordered Medical Decision Narrative: In summary, this 24-year-old male with comorbidities described in the HPI presents to the emergency department today with headache, nausea, vomiting, single episode of small blood-streaked emesis. On initial evaluation patient is hemodynamically stable, afebrile, GCS 15, no neurologic deficits, mild right upper quadrant and epigastric tenderness to palpation without rebound or guarding. No peritonitic findings. Cardiopulmonary exam benign. No SI or HI. Remainder of exam benign. Differential diagnosis includes but is not limited to tension headache, migraine, electrolyte abnormality, medication reaction, intracranial lesion, I considered the possibility of cholelithiasis, cholecystitis, pancreatitis, because patient had reported possible hemoptysis to nursing though he denied it to me, I did consider the possibility of ACS, PE, also considered Jenna-Smallwood tear, considered Boerhaave's but patient does not appear toxic and has no chest pain so very low suspicion for this. Based on these concerns, I ordered hematologic and serum labs, lipase, right upper quadrant ultrasound, cardiac workup, D-dimer. ECG personally interpreted demonstrates sinus rhythm, rate 82, normal axis, normal IL and QTc, no STEMI. Patient received IV fluids, Tylenol, Toradol, Benadryl, Compazine for treatment of headache. Labs personally reviewed demonstrate mild leukocytosis, no anemia, D-dimer 0.63 by years criteria PE excluded, CMP slightly elevated anion gap and hyperglycemia but serum acetone negative, no evidence of DKA, troponin undetectably low less than 0.01. In the setting of patient's duration of symptoms and nonischemic ECG I do not believe serial troponins are indicated at this time. Lipase normal at 135. Alk phos elevated but no other transaminitis. [id number] ultrasound personally performed and interpreted as nondiagnostic due to body habitus and bowel gas so CT abdomen pelvis was added to workup.. XR personally interpreted demonstrates no acute intrathoracic abnormality, see radiology read for final interpretation. CT head personally interpreted demonstrate no acute intracranial abnormality, see radiology read for final interpretation. Radiology comments on ocular abnormalities of which the patient is already aware and patient does not have any acute complaints or changes with these at this time. CT abdomen pelvis personally interpreted demonstrates no acute intra-abdominal pathology, specifically no right upper quadrant pathology appreciated. See radiology read for final interpretation. On reassessment patient is reporting improvement of symptoms, resting more comfortably. Patient is appropriate for discharge at this time. He is reassured by the workup that has been performed and remains stable. Patient reports a good relationship with his primary care physician and I instructed him to follow-up closely with her in the next few days to reevaluate lymphocytosis, blood glucose, right side abdominal pain, headache, and his ER visit. Additionally I recommended the patient reach back out to his psychiatrist to discuss possible medication side effects from his recent injection contributing to his presentation tonight. Ondansetron prescribed for outpatient management of nausea if needed. Patient was given instructions on symptomatic monitoring and management, follow up instructions, and return precautions for the emergency department. Patient indicated understanding and was discharged in stable condition. Procedures Miscellaneous Procedure Procedure Performed: Limited RUQ ultrasound Indication: Right upper quadrant abdominal pain, nausea, vomiting Identified structures: Liver. Unable to identify gallbladder or other right upper quadrant structures due to body habitus and bowel gas Findings: Sonographic Kellogg sign: Absent Gallstones: Unable to assess Sludge: Unable to assess Pericholecystic fluid: Unable to assess Maximal GB wall thickness (mm): [normal is </= 3mm] Unable to assess Common bile duct width (mm): [normal is </= 6mm] Unable to assess Gallbladder width (cm): [normal is < 4cm] Unable to assess Gallbladder length (cm): [normal is < 10cm] Unable to assess Impression: Nondiagnostic right upper quadrant ultrasound Images were saved to permanent archive The study was not technically adequate CPT 81580-65 This study was performed by me, and I personally interpreted all images/videos. Based on my clinical judgement, these images were inadequate and did necessitate further imaging. Critical Care Critical Care Time Critical Care Time: No
[2025-02-16 01:39] LABS: Troponin I < 0.01 ng/ml (0.00-0.034)
[2025-02-16] MEDS: KETOROLAC 30MG/ML VIAL 30 MG IV (01:42)
[2025-02-16] MEDS: LACTATED RINGERS 1000ML 1,000 ML 999 ML IV (01:42)
[2025-02-16] MEDS: ACETAMINOPHEN 500MG TAB 1000 MG PO (01:42)
[2025-02-16] MEDS: PROCHLORPERAZINE 10MG TABLET 10 MG PO (01:42)
[2025-02-16 01:48] LABS: Lipase 135 U/L (23-300)
[2025-02-16 01:50] LABS: Magnesium 1.8 mg/dl (1.6-2.3)
[2025-02-16 02:00] VITALS: BP 145/98; PULSE 101; O2SAT 95
--- NOTE | 2025-02-16 02:05 | CT_ITS ---
PROCEDURE INFORMATION: Exam: CT Abdomen And Pelvis With Contrast Exam date and time: 02/16/2025 2:20 AM Age: 24 years old Clinical indication: Abdominal pain; Additional info: Ruq and eipgastric pain, n/v TECHNIQUE: Imaging protocol: Computed tomography of the abdomen and pelvis with contrast. Radiation optimization: All CT scans at this facility use at least one of these dose optimization techniques: automated exposure control; mA and/or kV adjustment per patient size (includes targeted exams where dose is matched to clinical indication); or iterative reconstruction. Contrast material: ISOVUE; Contrast volume: 75 ml; Contrast route: IV; COMPARISON: CT ABDOMEN PELVIS W CON 03/07/2024 8:18 AM FINDINGS: Lungs: No acute finding. Liver: Hepatic steatosis is noted. Gallbladder and biliary ducts: Normal. No calcified stones. No ductal dilation. Pancreas: Normal. No ductal dilation. Spleen: Normal. No splenomegaly. Adrenal glands: Normal. No mass. Kidneys and ureters: Normal. No hydronephrosis. Stomach and bowel: Unremarkable. No obstruction. No mucosal thickening. Appendix: No evidence of appendicitis. Intraperitoneal space: Unremarkable. No free air. No significant fluid collection. Vasculature: Unremarkable. No abdominal aortic aneurysm. Lymph nodes: Unremarkable. No enlarged lymph nodes. Urinary bladder: Unremarkable as visualized. Reproductive: Unremarkable as visualized. Bones/joints: There are [id number] degenerative changes of the lower thoracic spine and at the L5-S1 level. No acute fracture. No Soft tissues: Unremarkable. IMPRESSION: There is no acute process evident within the abdomen or pelvis.
[2025-02-16 02:09] LABS: Total Cells Counted 100
[2025-02-16 02:10] LABS: RBC Morphology Normal
[2025-02-16] MEDS: IOPAMIDOL-370 (76%);100ML BOTTLE 75 ML IV (02:24)
[2025-02-16] MEDS: SODIUM CHLORIDE 0.9% 10ML SYR (RAD ONLY) 10 ML IV (02:24)
[2025-02-16 02:33] LABS: Acetone, Serum (Rapid) None Detected (None Detect)
[2025-02-16 03:01] VITALS: BP 145/78; PULSE 74; RESP 18; TEMP 36.4; O2SAT 96
== END 2025-02-16 03:03 | disposition home or self-care (01) ==
PROVIDERS: Emergency Provider Emergency Medicine; PCP Family Medicine
DX: R51.9 Headache, unspecified (principal); R10.811 Right upper quadrant abdominal tenderness; R11.2 Nausea with vomiting, unspecified; D72.820 Lymphocytosis (symptomatic); F20.9 Schizophrenia, unspecified; E11.65 Type 2 diabetes mellitus with hyperglycemia; F17.290 Nicotine dependence, other tobacco product, uncomplicated; H15.833 Staphyloma posticum, bilateral
CPT/HCPCS: 70450; 71046; 74177; 80053; 82009; 83690; 83735; 84484; 85007; 85025; 85378; 93005; 96361; 96374; 96375; 99285; J1200; J1885; J7120; Q0164; Q9967

== ENCOUNTER 2025-02-28 08:53 | Outpatient (CLI) | payer OTHER, SELFPAY ==
[2025-02-28 19:23] LABS: Hematocrit 43.4 % (42.0-52.0); Hemoglobin 14.5 g/dL (14.1-18.0); Immature Granulocytes % 0.2 %; Mean Corpuscular HGB Conc 33.4 g/dL (31.8-35.4); Mean Corpuscular Hemoglobin 27.8 pg (27.0-31.2); Mean Corpuscular Volume 83.1 fl (80-94); Nucleated Red Blood Cells % 0 %; Platelet Count 282 K/mm3 (142-424); Red Blood Count 5.22 M/mm3 (4.60-6.20); Red Cell Distribution Width-SD 38.7 fL; White Blood Count 8.6 K/mm3 (4.8-10.8)
[2025-02-28 19:57] LABS: Albumin Level 3.8 g/dl (3.5-5.0); Chloride 101 mmol/L (98-107); Potassium 4.0 mmoL/L (3.5-5.1); Sodium 135 mmol/L (136-145)
[2025-02-28 20:00] LABS: Alanine Aminotransferase 44 U/L (12-78); Albumin/Globulin Ratio 1.3 (1.1-1.8); Alkaline Phosphatase 131 U/L (38-126); Anion Gap 12.0 mEq/L (5-15); Aspartate Amino Transferase 38 U/L (17-59); Bilirubin,Total 0.6 mg/dl (0.2-1.3); Blood Urea Nitrogen 11 mg/dl (9-20); Calcium 8.8 mg/dl (8.4-10.2); Carbon Dioxide 26 mmol/L (22.0-30.0); Creatinine,Serum 0.60 mg/dl (0.66-1.25); Estimated Glomerular Filt Rate 163 ml/min (>60); GFR (African American) 197 ML/MIN (>60); Globulin 2.9 g/dL (1.3-3.2); Glucose 271 mg/dl (74-100); Total Protein,Serum 6.7 g/dl (6.3-8.2)
[2025-02-28 20:10] LABS: Hemoglobin A1C 10.1 % (4.0-6.0)
== END 2025-02-28 23:59 ==
LOC: LAB.DROPOF 03-02 08:54
PROVIDERS: PCP Family Medicine; Visit Provider Family Medicine
DX: E11.9 Type 2 diabetes mellitus without complications (principal)
CPT/HCPCS: 80053; 83036; 85025

== ENCOUNTER 2025-04-18 15:35 | Outpatient (CLI) | payer OTHER, SELFPAY | END 2025-04-18 23:59 | disposition home or self-care (01) | LOC: RT 15:36 | PROVIDERS: PCP Family Medicine; Visit Provider Nurse Practitioner | DX: R93.1 Abnormal findings on diagnostic imaging of heart and coronary circulation (principal); R94.31 Abnormal electrocardiogram [ECG] [EKG]; R00.0 Tachycardia, unspecified | CPT/HCPCS: 93270 ==

== ENCOUNTER 2025-04-25 16:41 | Outpatient (CLI) | payer OTHER, SELFPAY ==
[2025-04-25 20:44] LABS: Hematocrit 40.0 % (42.0-52.0); Hemoglobin 13.2 g/dL (14.1-18.0); Immature Granulocytes % 0.3 %; Mean Corpuscular HGB Conc 33.0 g/dL (31.8-35.4); Mean Corpuscular Hemoglobin 27.8 pg (27.0-31.2); Mean Corpuscular Volume 84.2 fl (80-94); Nucleated Red Blood Cells % 0 %; Platelet Count 310 K/mm3 (142-424); Red Blood Count 4.75 M/mm3 (4.60-6.20); Red Cell Distribution Width-SD 40.1 fL; White Blood Count 11.2 K/mm3 (4.8-10.8)
[2025-04-25 21:07] LABS: Alanine Aminotransferase 23 U/L (12-78); Albumin Level 4.5 g/dl (3.5-5.0); Albumin/Globulin Ratio 1.7 (1.1-1.8); Alkaline Phosphatase 115 U/L (38-126); Anion Gap 13.8 mEq/L (5-15); Aspartate Amino Transferase 24 U/L (17-59); Bilirubin,Total 0.6 mg/dl (0.2-1.3); Blood Urea Nitrogen 16 mg/dl (9-20); Carbon Dioxide 24 mmol/L (22.0-30.0); Chloride 104 mmol/L (98-107); Creatinine,Serum 0.70 mg/dl (0.66-1.25); Estimated Glomerular Filt Rate 136 ml/min (>60); GFR (African American) 165 ML/MIN (>60); Globulin 2.6 g/dL (1.3-3.2); Potassium 4.8 mmoL/L (3.5-5.1); Sodium 137 mmol/L (136-145); Total Protein,Serum 7.1 g/dl (6.3-8.2)
[2025-04-25 21:19] LABS: Calcium 8.8 mg/dl (8.4-10.2); Glucose 159 mg/dl (74-100)
[2025-04-25 21:55] LABS: Vitamin B12 696 pg/mL (239-931)
--- OUTSIDE RECORDS SUMMARY | 2025-04-26 11:42 | XMS_ITS | Encounter Summary ---
Author Organization Healthcare Address [address] [place] [address] Care Team Providers Care Configuration Technician Name Role Phone Esteban Ya MD Primary Care Provider [phone] Encounter Details Date Type Department Care Team (Late st Contact Info) Description 06/19/2024 Lab Requisition [facility] [address] [place] [address] Lida Quintero MD [address] [place] [phone] Routine general medical examination at a [...] Description 08/14/2025 3:45 PM EDT Office Visit [facility] [address] [place] [address] Flex Rogers MD [address] [phone] documented as of this encounter [...] documented as of this encounter Care Teams Configuration Technician Relationship Specialty Start Date End Date Esteban Ya MD [address] [place] [address] PCP - General 09/20/20 documented as of this encounter
--- OUTSIDE RECORDS SUMMARY | 2025-04-26 11:42 | XMS_ITS | Encounter Summary ---
Author Organization Healthcare Address [address] [place] [address] Care Team Providers Care Firmware Engineer Name Role Phone Esteban Ya MD Primary Care Provider [phone] Encounter Details Date Type Department Care Team (Late Contact Info) Description 07/12/2024 Orders Only External Location [address] [place] [address] Provider, External Social History Tobacco Use Types [...] Description 08/14/2025 3:45 PM EDT Office Visit [facility] [address] [place] [address] Flex Rogers MD [address] [phone] documented as of this encounter [...] documented as of this encounter Care Teams Firmware Engineer Relationship Specialty Start Date End Date Esteban Ya MD [address] [place] [address] PCP - General 09/20/20 documented as of this encounter
--- OUTSIDE RECORDS SUMMARY | 2025-04-26 11:42 | XMS_ITS | Encounter Summary ---
Author Organization Healthcare Address [address] [place] [address] Care Team Providers Care Edge Dyer Name Role Phone Esteban Ya MD Primary Care Provider [phone] Encounter Details Date Type Department Care Team (Late st Contact Info) Description 06/20/2024 Lab Requisition [facility] [address] [place] [address] Lida Quintero MD [address] [place] [phone] Routine general medical examination at a [...] Description 08/14/2025 3:45 PM EDT Office Visit [facility] [address] [place] [address] Flex Rogers MD [address] [phone] documented as of this encounter [...] documented as of this encounter Care Teams Edge Dyer Relationship Specialty Start Date End Date Esteban Ya MD [address] [place] [address] PCP - General 09/20/20 documented as of this encounter
--- OUTSIDE RECORDS SUMMARY | 2025-04-26 11:42 | XMS_ITS | Clinical Summary ---
Author Organization [facility] Address [address] [place] [address] Care Team Providers Care Processing Talc And Borate Supervisor Name Role Phone Esteban Ya MD Primary Care Provider [phone] Allergies Active Allergy Reactions Criticality Noted Date [...] of breath. 3 Active ergocalciferol 1.25 MG (34316 UT) capsule Take 1 capsule (50,000 Units) [...] 03/16/2023 Costochondritis 03/16/2023 03/16/2023 Diabetes 03/16/2023 03/16/2023 Dizziness 03/16/2023 03/16/2023 GERD with esophagitis 03/16/2023 03/16/2023 HTN (hypertension) 03/16/2023 03/16/2023 Impacted ear wax 03/16/2023 03/16/2023 Low back pain 03/16/2023 03/16/2023 Lumbar strain 03/16/2023 03/16/2023 Non-compliance 03/16/2023 03/16/2023 Poison isaias 03/16/2023 03/16/2023 Preseptal cellulitis of right eye 03/16/2023 03/16/2023 Puncture wound of foot without foreign body 11/202203/16/2023 Rectal bleeding 03/16/2023 03/16/2023 Schizophrenia 03/16/2023 03/16/2023 Depression 12/02/2016 Intractable migraine without aura and without status migrainosus 12/02/2016 Obesity 12/02/2016 Headache 12/25/2015 Resolved Problems Problem Noted Date Diagnosed Date Resolved Date Acute gastroenteritis 03/16/2023 03/16/20232024 Acute maxillary sinusitis 03/16/2023 03/16/2023 Bronchitis 03/16/2023 03/16/2023 01/28/2025 Colitis 03/16/2023 03/16/2023 01/28/2025 Difficult bowel movements 03/16/2023 03/16/2023 Insomnia 03/16/2023 03/16/2023 01/28/2025 Nausea & vomiting 03/16/2023 03/16/2023 01/28/2025 Otitis media 03/16/2023 03/16/2023 01/28/2025 Overweight 03/16/2023 03/16/2023 01/28/2025 Sinusitis 03/16/2023 03/16/2023 01/28/2025 SOB (shortness of breath) 03/16/2023 03/16/2023 Sore throat 03/16/2023 03/16/2023 01/28/2025 Encounters Date Type Department Care Team Description 02/01/2025 1:30 PM EDT Office Visit [facility] [address] [place] [address] Flex Rogers MD NPDR (nonproliferative diabetic retinopathy) (Primary Dx) 02/01/2025 7:55 AM EDT Ancillary Procedure [facility] [address] [place] [address] 02/01/2025 Travel from Last 3 Months Immunizations Immunization [...] Description 08/14/2025 3:45 PM EDT Office Visit [facility] [address] [place] [address] Flex Rogers MD [address] [place] [address] Health Maintenance Due Date Last [...] 08/27/2019 08/26/2009 [facility]-Diabetes: Hemoglobin A1C 10/14/2022 04/16/2022 [id number] Vaccine (3 - 2024- season) 2025 02/08/2021, 01/12/2021 [facility]-Influenza Vaccine (#1) [...] 2:12 PM EDT NPDR (nonproliferative diabetic retinopathy) HEMOGLOBIN A1C STAT 04/16/2022 1:43 AM EST [...] 10.5(H) <5.7 % 04/16/2022 4:07 AM EST [facility] Blood Venous blood specimen / Unknown [...] Adults <6.0% Children and Adolescents <7.5% Source: [place] Diabetes Association. Standards of medical care in diabetes,2017. Diabetes Care.2017:40 (suppl 1):S1-S135. HbA1c assay performed by an ion-exchange chromatography method that is certified traceable to the DCCT. us Tita Cochran MD LAB BLOOD ORDERABLES Final Re sult [facility] [address] [place] [address] from Last 3 Months or Most Recently Relevant to Health Maintenance Insurance [employer] Care Teams Processing Talc And Borate Supervisor Relationship Specialty Start Date End Date Esteban Ya MD [address] [place] [address] PCP - General 09/20/20
--- OUTSIDE RECORDS SUMMARY | 2025-04-26 11:42 | XMS_ITS | Encounter Summary ---
Author Organization [facility] Address [address] [place] [address] Care Team Providers Care Manager Urgent Care Name Role Phone Esteban Ya MD Primary Care Provider [phone] Encounter Details Date Type Department Care Team (Late Contact Info) Description 08/26/2024 Orders Only External Location [address] [place] [address] Provider, External Social History Tobacco Use Types [...] 08/14/2025 3:45 PM EDT Office Visit [facility] [address] [place] [address] Flex Rogers MD [address] [address] documented as of this encounter [...] documented as of this encounter Care Teams Manager Urgent Care Relationship Specialty Start Date End Date Esteban Ya MD [address] [place] [address] PCP - General 09/20/20 documented as of this encounter
--- OUTSIDE RECORDS SUMMARY | 2025-04-26 11:42 | XMS_ITS | Encounter Summary ---
Author Organization [facility] Address [address] [place] [address] Care Team Providers Care Public Speaking Instructor Name Role Phone Esteban Ya MD Primary Care Provider [phone] Encounter Details Date Type Department Care Team (Late Contact Info) Description 05/22/2024 Orders Only External Location [address] [place] [address] Provider, External Social History Tobacco Use Types [...] Description 08/14/2025 3:45 PM EDT Office Visit [facility] [address] [place] [address] Flex Rogers MD [address] [address] documented as of this encounter [...] documented as of this encounter Care Teams Public Speaking Instructor Relationship Specialty Start Date End Date Esteban Ya MD [address] [place] [address] PCP - General 09/20/20 documented as of this encounter
== END 2025-04-25 23:59 | disposition home or self-care (01) ==
LOC: LAB.DROPOF 04-26 10:27
PROVIDERS: PCP Family Medicine; Visit Provider Family Medicine
DX: N50.819 Testicular pain, unspecified (principal); G62.9 Polyneuropathy, unspecified; I10 Essential (primary) hypertension; E66.01 Morbid (severe) obesity due to excess calories; Z68.38 Body mass index [BMI] 38.0-38.9, adult
CPT/HCPCS: 80053; 82607; 85025

== ENCOUNTER 2025-05-07 14:59 | Outpatient (CLI) | payer OTHER, SELFPAY ==
--- NOTE | 2025-05-07 15:00 | US_ITS ---
FINAL REPORT TECHNIQUE: Sonographic images of the testicles and scrotum were obtained in the longitudinal and transverse planes. CLINICAL HISTORY: lt testicle pain x years COMPARISON: None FINDINGS: The right testicle is small measuring 1.4 x 2.0 x 1.0 centimeters. There is no intratesticular mass. The epididymis is within normal limits. No hydrocele. Blood flow is noted. No evidence of torsion. The left testicle is small measuring 1.6 x 1.9 x 1.2 centimeters. There is no intratesticular mass. The epididymis is within normal limits. Small left varicocele. No hydrocele. Blood flow is noted. No evidence of torsion. IMPRESSION: No evidence of intratesticular mass or testicular torsion. Small testicles for patient's age, etiology unclear. Reviewed, Interpreted and Dictated by Marjorie Carmichael MD Transcribed by Kinjal Simmons Authenticated and . [facility]
--- OUTSIDE RECORDS SUMMARY | 2025-05-07 15:08 | XMS_ITS | Encounter Summary ---
Author Organization [facility] Address [address] [place] [address] Care Team Providers Care Assistant Teacher Primary Name Role Phone Esteban Ya MD Primary Care Provider [phone] Encounter Details Date Type Department Care Team (Late st Contact Info) Description 06/20/[address] [facility] [address] [place] [address] Lida Quintero MD [address] [place] [phone] Routine general medical examination at a [...] Description 08/14/2025 3:45 PM EDT Office Visit [facility] [address] [place] [address] Flex Rogers MD [address] [address] documented as of this encounter [...] as of this encounter Care Teams Assistant Teacher Primary Relationship Specialty Start Date End Date Esteban Ya MD [address] [place] [address] PCP - General 09/20/20 documented as of this encounter
--- OUTSIDE RECORDS SUMMARY | 2025-05-07 15:08 | XMS_ITS | Encounter Summary ---
Author Organization [facility] Address [address] [place] [address] Care Team Providers Care Call Out Operator Name Role Phone Esteban Ya MD Primary Care Provider [phone] Encounter Details Date Type Department Care Team (Late Contact Info) Description 07/12/2024 Orders Only External Location [address] [place] [address] Provider, External Social History Tobacco Use Types [...] Description 08/14/2025 3:45 PM EDT Office Visit [facility] [address] [place] [address] Flex Rogers MD [address] [address] documented as of this encounter [...] documented as of this encounter Care Teams Call Out Operator Relationship Specialty Start Date End Date Esteban Ya MD [address] [place] [address] PCP - General 09/20/20 documented as of this encounter
--- OUTSIDE RECORDS SUMMARY | 2025-05-07 15:08 | XMS_ITS | Encounter Summary ---
Author Organization [facility] Address [address] [place] [address] Care Team Providers Care Firer Kiln Name Role Phone Esteban Ya MD Primary Care Provider [phone] Encounter Details Date Type Department Care Team (Late Contact Info) Description 05/22/2024 Orders Only External Location [address] [place] [address] Provider, External Social History Tobacco Use Types [...] Description 08/14/2025 3:45 PM EDT Office Visit [facility] [address] [place] [address] Flex Rogers MD [address] [address] documented as of this encounter [...] documented as of this encounter Care Teams Firer Kiln Relationship Specialty Start Date End Date Esteban Ya MD [address] [place] [address] PCP - General 09/20/20 documented as of this encounter
--- OUTSIDE RECORDS SUMMARY | 2025-05-07 15:08 | XMS_ITS | Encounter Summary ---
Author Organization [facility] Address [address] [place] [address] Care Team Providers Care Second Grade Teacher Name Role Phone Esteban Ya MD Primary Care Provider [phone] Encounter Details Date Type Department Care Team (Late st Contact Info) Description 06/19/2024 Lab Requisition [address] [place] [address] Lida Quintero MD [address] [place] [phone] Routine general medical examination at a [...] Description 08/14/2025 3:45 PM EDT Office Visit [facility] [address] [place] [address] Flex Rogers MD [address] [address] documented as of this encounter [...] documented as of this encounter Care Teams Second Grade Teacher Relationship Specialty Start Date End Date Esteban Ya MD [address] [place] [address] PCP - General 09/20/20 documented as of this encounter
--- OUTSIDE RECORDS SUMMARY | 2025-05-07 15:08 | XMS_ITS | Encounter Summary ---
Author Organization [facility] Address [address] [place] [address] Care Team Providers Care Infantry Officer Name Role Phone Esteban Ya MD Primary Care Provider [phone] Encounter Details Date Type Department Care Team (Late Contact Info) Description 08/26/2024 Orders Only External Location [address] [place] [address] Provider, External Social History Tobacco Use Types [...] Description 08/14/2025 3:45 PM EDT Office Visit [facility] [address] [place] [address] Flex Rogers MD [address] [address] documented as of this encounter [...] documented as of this encounter Care Teams Infantry Officer Relationship Specialty Start Date End Date Esteban Ya MD [address] [place] [address] PCP - General 09/20/20 documented as of this encounter
--- OUTSIDE RECORDS SUMMARY | 2025-05-07 15:08 | XMS_ITS | Clinical Summary ---
Author Organization [facility] Address [address] [place] [address] Care Team Providers Care Paper Bag Inspector Name Role Phone Esteban Ya MD Primary Care Provider [phone] Allergies Active Allergy Reactions Criticality Noted Date [...] of breath. 3 Active ergocalciferol 1.25 MG (88106 UT) capsule Take 1 capsule (50,000 Units) [...] 03/16/2023 03/16/2023 Sore throat 03/16/2023 03/16/2023 01/28/2025 Immunizations Immunization Administration Dates Next Due Influenza, [...] Description 08/14/2025 3:45 PM EDT Office Visit [facility] [address] [place] [address] Flex Rogers MD [address] [place] [address] Health Maintenance Due Date Last [...] 08/27/2019 08/26/2009 [facility]-Diabetes: Hemoglobin A1C 10/14/2022 04/16/2022 [id number] Vaccine (3 - 2024- season) 2025 02/08/2021, [...] Adults <6.0% Children and Adolescents <7.5% Source: [place] [employer]. Standards of medical care in diabetes,2017. Diabetes Care.2017:40 (suppl 1):S1-S135. HbA1c assay performed by an ion-exchange chromatography method that is certified traceable to the DCCT. Tita Cochran MD LAB BLOOD ORDERABLES Final Re sult [facility] [address] [place] [address] from Last 3 Months or Most Recently Relevant to Health Maintenance Insurance [employer] [facility] MEDICAID Care Teams Paper Bag Inspector Relationship Specialty Start Date End Date Esteban Ya MD [address] [place] [address] PCP - General 09/20/20
== END 2025-05-07 23:59 | disposition home or self-care (01) ==
LOC: RAD 15:00
PROVIDERS: PCP Family Medicine; Visit Provider Family Medicine
DX: I86.1 Scrotal varices (principal)
CPT/HCPCS: 76870